=== PATIENT | male | born 1965 | race African-American/Black ===

== ENCOUNTER 2016-08-10 11:33 | Inpatient (IN) | payer OTHER ==
[2016-08-10 12:28] VITALS: BMI 25.2
[2016-08-10] MEDS ORDERED: P-EPHED 60MG/TRIPROLIDI 2.5MG TABLET PO PRN (14:37)
[2016-08-10] MEDS ORDERED: IBUPROFEN 400 MG TABLET (FP) PO PRN (14:37)
[2016-08-10] MEDS ORDERED: MAGNESIUM CITRATE 300 ML BOTTLE PO PRN (14:37)
[2016-08-10] MEDS ORDERED: LOPERAMIDE HCL 2 MG CAPSULE PO PRN (14:37)
[2016-08-10] MEDS ORDERED: ACETAMINOPHEN 325 MG TABLET (FP) PO PRN (14:37)
[2016-08-10] MEDS ORDERED: MENTHOL/PHENOL 1 EACH UD MM PRN (14:37)
[2016-08-10] MEDS ORDERED: hydrOXYzine PAMOATE 50 MG CAPSULE (FP) PO PRN (14:37)
[2016-08-10] MEDS ORDERED: MAG HYDROX/AL HYDROX/SIMETH 30 ML UNIT-DOSE CUP PO PRN (14:37)
[2016-08-10] MEDS ORDERED: MAGNESIUM HYDROX 2400MG/30ML ORAL SUSPENSION 30 ML CUP PO PRN (14:37)
[2016-08-10] MEDS ORDERED: NICOTINE POLACRILEX 4 MG GUM BUC PRN (14:37)
[2016-08-10] MEDS ORDERED: diphenhydrAMINE HCL 50 MG CAPSULE PO PRN (14:37)
[2016-08-10] MEDS ORDERED: guaiFENesin/D-METHORPHAN HB 10 ML UNIT-DOSE CUPS PO PRN (14:37)
[2016-08-10] MEDS ORDERED: NICOTINE 21 MG/24 HOURS TOPICAL PATCH TD SCH (14:45)
--- NOTE | 2016-08-10 14:45 | HP ---
Admission ROS [facility] Chief Complaint: requesting [facility] Allergies/Adverse Reactions: Allergies Allergy/AdvReac Type Severity Reaction Status Date / Time No Known Allergies Allergy Verified 08/10/16 13:32 History of Present Illness: 51 yo m w h/o alcohol and opioid use disorder on MMTP 60mg completed inpatient detox at [facility] now requesting admission for 28 day rehab. PMHX epilepsy on dilantin 100mg tid, last seizures 7 months ago, takes his medications as prescribed, last dose of dilantin 2PM today. Has not had methadone. no h/o psychiatric illness, no suicidal ideation at present or suicide attempts in past. Last drink tuesday 5 days ago with heroin. Patient says he has not been medicated with methadone 60mg this AM, now w opioid withdrawal sx, nausea, diarrhea, baody aches, low back pain and anasal congestion, nurse at [facility] said patient left before he was medicated today LDM yesterday. Exam Limitations: No Limitations - Ebola screening Have you traveled outside of the country in the last 21 days: No Have you had contact with anyone from an Ebola affected area: No Have you been sick,other than usual withdrawal symptoms: No Do you have a fever: No - Review of Systems Constitutional: Diaphoresis, Loss of Appetite, Malaise EENT: reports: Nose Congestion Respiratory: reports: No Symptoms reported Cardiac: reports: No Symptoms Reported GI: reports: Diarrhea, Nausea : reports: No Symptoms Reported Musculoskeletal: reports: Back Pain, Muscle Pain Integumentary: reports: No Symptoms Reported Neuro: reports: Seizure (last seizure 7 months ago on dilantin taking as prescribed) Endocrine: reports: No Symptoms Reported Hematology: reports: No Symptoms Reported Psychiatric: reports: Judgement Intact, Mood/Affect Appropiate, Orientated x3, Anxious, Depressed Other Systems: Reviewed and Negative Patient History - Patient Medical History Hx Anemia: No Hx Asthma: No Hx Chronic Obstructive Pulmonary Disease (COPD): No Hx Cancer: No Hx Cardiac Disorders: No Hx Congestive Heart Failure: No Hx Hypertension: Yes (NO MED) Hx Hypercholesterolemia: No Hx Pacemaker: No HX Cerebrovascular Accident: No Hx Seizures: Yes (H/O Epilepsy LAST IN 03/26) Hx Dementia: No Hx Diabetes: No Hx Gastrointestinal Disorders: No Hx Liver Disease: No Hx Genitourinary Disorders: No Hx Sexually Transmitted Disorders: No Hx Renal Disease (ESRD): No Hx Thyroid Disease: No Hx Human Immunodeficiency Virus (HIV): No (neg LAST 2015) Hx Hepatitis C: No Hx Depression: Yes Hx Suicide Attempt: No Hx Bipolar Disorder: No Hx Schizophrenia: No Other Medical History: r hinguinal hernia, non tender, no surgical repiar - Patient Surgical History Past Surgical History: Yes Hx Neurologic Surgery: No Hx Cataract Extraction: No Hx Cardiac Surgery: No Hx Lung Surgery: No Hx Breast Surgery: No Hx Breast Biopsy: No Hx Abdominal Surgery: No Hx Appendectomy: No Hx Cholecystectomy: No Hx Genitourinary Surgery: No Hx Section: No Hx Orthopedic Surgery: Yes (fx left wrist 1998 ORIF) Anesthesia Reaction: No - PPD History Previous Implant?: Yes Documented Results: Negative w/proof Implanted On Prior [facility] Admission?: No Date: 05/09/16 PPD to be Administered?: No - Reproductive History Patient is a Female of Child Bearing Age (11 -55 yrs old): No Patient : No - Smoking Cessation Smoking history: Current every day smoker Have you smoked in the past 12 months: Yes Aproximately how many cigarettes per day: 6 Cigars Per Day: 0 Hx Chewing Tobacco Use: No Initiated information on smoking cessation: Yes 'Breaking Loose' booklet given: 08/10/16 - Substance & Tx. History Hx Alcohol Use: Yes Hx Substance Use: Yes Substance Use Type: Alcohol, Heroin, Opiates Hx Substance Use Treatment: Yes (MMTP, s/p inpatient detox at [facility]) - Substances Abused Alcohol Route: Oral Frequency: Daily Amount used: 2 6 opacks and a pint of vodka daily Age of first use: 12 Date of Last Use: 08/06/16 Heroin Route: Inhalation Frequency: Daily Amount used: 5-10 bags daily Age of first use: 13 Date of Last Use: 08/06/16 Admission Physical Exam [facility] - Vital Signs Vital Signs: Vital Signs - 24 hr 08/10/16 12:27 Temperature 97.8 F Pulse Rate 73 Respiratory 20 Rate Blood Pressure 133/89 - Physical General Appearance: Yes: Nourished, Appropriately Dressed, Disheveled, Mild Distress, Irritable, Anxious HEENTM: Yes: EOMI, Hearing grossly Normal, Normal ENT Inspection, Normocephalic , Normal Voice, MARIE, Nasal Congestion Respiratory: Yes: Within Normal Limits, Chest Non-Tender, Lungs Clear, Normal Breath Sounds, No Respiratory Distress, No Accessory Muscle Use Neck: Yes: Within Normal Limits, No masses,lesions,Nodules, Supple, Trachea in good position Breast: Yes: Breast Exam Deferred Cardiology: Yes: Within Normal Limits, Regular Rhythm, Regular Rate, S1, S2 Abdominal: Yes: Normal Bowel Sounds, Non Tender, Flat, Soft, Protuberent, Distended Genitourinary: Yes: Within Normal Limits Back: Yes: Normal Inspection, Decreased Range of Motion, Muscle Spasm, Vertebral Tenderness Musculoskeletal: Yes: full range of Motion, Gait Steady, Back pain, Joint Stiffness Extremities: Yes: Normal Capillary Refill, Normal Inspection, Normal Range of Motion, Non-Tender 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, Fully Oriented, Alert, Motor Strength 5/5, Normal Response, Depressed Affect Integumentary: Yes: Within Normal Limits, Normal Color, Dry, Warm Lymphatic: Yes: Within Normal Limits - Addiitonal Findings: symptoms of opioid withdrawal present as patient did not recieve methadone this am prior to leaving detox - Diagnostic (1) Cocaine dependence Current Visit: Yes Status: Chronic Qualifiers: Substance use status: uncomplicated Qualified Code(s): F14.20 - Cocaine dependence, uncomplicated (2) Opioid dependence Current Visit: Yes Status: Chronic Qualifiers: Substance use status: uncomplicated Qualified Code(s): F11.20 - Opioid dependence, uncomplicated (3) Substance induced mood disorder Current Visit: Yes Status: Acute (4) Substance-induced sleep disorder Current Visit: Yes Status: Acute (5) Blurred vision, bilateral Current Visit: No Status: Chronic (6) Direct inguinal hernia Current Visit: No Status: Chronic (7) Epilepsy Current Visit: No Status: Chronic (8) Marijuana dependence Current Visit: Yes Status: Chronic (9) Methadone maintenance therapy patient Current Visit: Yes Status: Chronic (10) Nicotine dependence Current Visit: Yes Status: Chronic Qualifiers: Nicotine product type: cigarettes Substance use status: uncomplicated Qualified Code(s): F17.210 - Nicotine dependence, cigarettes, uncomplicated (11) Osteoarthritis Current Visit: Yes Status: Chronic Qualifiers: Spinal region: lumbar Cleared for Admission [facility] - Detox or Rehab Claeared for Rehab Admission: Yes [facility] Breath Alcohol Content Breath Alcohol Content: 0 Urine Drug Screen - Control Is Test Valid: Yes - Results Drug Screen Negative: No Urine Drug Screen Results: BAR-Barbiturates, BZO-Benzodiazepines, MTD-Methadone , TCA-Tricyclic Antidepress
[2016-08-10] MEDS ORDERED: METHADONE HCL 10 MG TABLET PO ONE ×2 (14:51)
[2016-08-10] MEDS ORDERED: METHADONE HCL 10 MG TABLET PO SCH (15:15)
[2016-08-10 16:03] LABS: MCH 31.9 pg (25.7-33.7); MEAN CELL VOLUME 96.8 fl (80-96); MEAN PLT VOLUME 8.9 fl (7.5-11.1); PLATELET COUNT 196 K/MM3 (134-434); WHITE BLOOD COUNT 3.8 K/mm3 (4.0-10.0)
[2016-08-10 16:06] LABS: ALBUMIN 3.2 g/dl (3.4-5.0); ANION GAP 7 (8-16); BILIRUBIN,TOTAL 0.3 mg/dL (0.2-1.0); CALCIUM 8.7 mg/dL (8.5-10.1); CO2 30 mmol/L (21-32); CREATININE 0.9 mg/dL (0.7-1.3); GLUCOSE,RANDOM 80 mg/dL (74-106); SGOT/AST 19 U/L (15-37); SGPT/ALT 25 U/L (12-78)
[2016-08-10 16:07] LABS: ALK PHOS 89 U/L (45-117)
[2016-08-10] MEDS ORDERED: METHADONE HCL 10 MG TABLET ONE (16:29)
[2016-08-10] MEDS ORDERED: METHADONE HCL 40 MG DISPERSABLE TABLET ONE (16:29)
[2016-08-10] MEDS ORDERED: TUBERCULIN PPD 5 TU/0.1ML VIAL ID ONE (16:31)
[2016-08-10] MEDS: CYCLOBENZAPRINE HCL 10 MG TABLET (FP) PO SCH ×2 (16:32→21:33)
[2016-08-10] MEDS: LIDOCAINE 5% TOPICAL PATCH TP SCH (16:32)
[2016-08-10] MEDS: METHADONE 40 MG, METHADONE 20 MG PO SCH (16:32)
[2016-08-10 20:11] LABS: URINE APPEARANCE CLEAR; URINE BILIRUBIN NEGATIVE (NEGATIVE); URINE BLOOD NEGATIVE (NEGATIVE); URINE COLOR YELLOW; URINE GLUCOSE (UA) NEGATIVE (NEGATIVE); URINE KETONE NEGATIVE (NEGATIVE); URINE LEUK ESTERASE NEGATIVE (NEGATIVE); URINE NITRITE NEGATIVE (NEGATIVE); URINE PROTEIN NEGATIVE (NEGATIVE); URINE UROBILINOGEN NEGATIVE E.U./dl (0.2-1.0)
[2016-08-10] MEDS: PHENYTOIN NA EXTENDED 100 MG CAPSULE (FP) PO SCH (21:33)
[2016-08-10] MEDS: THIAMINE HCL 100 MG TABLET (FP) PO SCH (21:33)
[2016-08-10] MEDS: NAPROXEN 500 MG TABLET (FP) PO SCH (21:33)
[2016-08-11] MEDS ORDERED: METHADONE HCL 10 MG TABLET ONE (03:10)
[2016-08-11] MEDS ORDERED: METHADONE HCL 40 MG DISPERSABLE TABLET ONE (03:10)
[2016-08-11] MEDS: PHENYTOIN NA EXTENDED 100 MG CAPSULE (FP) PO SCH ×3 (06:17→21:31)
[2016-08-11] MEDS: CYCLOBENZAPRINE HCL 10 MG TABLET (FP) PO SCH ×3 (06:17→21:31)
[2016-08-11] MEDS: METHADONE 40 MG, METHADONE 20 MG PO SCH (06:18)
--- NOTE | 2016-08-11 09:43 | HP ---
Psychiatrist Admission - Data Date of interview: 08/11/16 Admission source: [facility] Identifying data: This is the second inpatient rehabilitation admission, first to for this 51 year old single black male, father of 27 year old, currenty homeles and on PA Medical History: Seizure Disorder and Osteoarthritis, smokes 6 cigaretts a day. On MMTP 60 mg daily. 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 Vital Signs: Vital Signs - 24 hr 08/10/16 08/11/16 08/11/16 12:27 00:40 03:30 Temperature 97.8 F Pulse Rate 73 Respiratory 20 18 18 Rate Blood Pressure 133/89 08/11/16 06:45 Temperature 97.5 F L Pulse Rate 59 L Respiratory 18 Rate Blood Pressure 133/90 Allergies/Adverse Reactions: Allergies Allergy/AdvReac Type Severity Reaction Status Date / Time No Known Allergies Allergy Verified 08/10/16 13:32 Date of last physical exam: 08/10/16 Concur with the findings of this exam: Yes - Substance Abuse/Tx History Hx Alcohol Use: Yes Hx Substance Use: Yes Substance Use Type: Alcohol (1 pint of vodka and 2-6 pks of beer daily), Heroin (5-10 a day), Marijuana (daily use) Hx Substance Use Treatment: Yes (detox. [facility] - Admission Criteria Previous failed treatment: Yes Poor recovery environment: Yes Comorbidities: No Lacks judgement: Yes Mental Status Exam - Mental Status Exam Alert and Oriented to: Time, Place, Person Cognitive Function: Good Patient Appearance: Well Groomed Mood: Sad Affect: Appropriate, Mood Congruent Patient Behavior: Appropriate, Cooperative Speech Pattern: Clear, Appropriate Voice Loudness: Normal Thought Process: Intact, Goal Oriented Thought Disorder: Not Present Hallucinations: Denies Suicidal Ideation: Denies Homicidal Ideation: Denies Insight/Judgement: Fair Sleep: Fair Appetite: Fair Muscle strength/Tone: Normal Gait/Station: Normal Psychiatric Findings - Problem List ([place] 1, 2,3) (1) Cocaine dependence Current Visit: Yes Status: Chronic Qualifiers: Substance use status: uncomplicated Qualified Code(s): F14.20 - Cocaine dependence, uncomplicated (2) Marijuana dependence Current Visit: Yes Status: Chronic (3) Methadone maintenance therapy patient Current Visit: Yes Status: Chronic (4) Nicotine dependence Current Visit: Yes Status: Chronic Qualifiers: Nicotine product type: cigarettes Substance use status: uncomplicated Qualified Code(s): F17.210 - Nicotine dependence, cigarettes, uncomplicated (5) Opioid dependence Current Visit: Yes Status: Chronic Qualifiers: Substance use status: uncomplicated Qualified Code(s): F11.20 - Opioid dependence, uncomplicated - Initial Treatment Plan Initial Treatment Plan: will monitor progress as needed.
[2016-08-11] MEDS: LIDOCAINE 5% TOPICAL PATCH TP SCH (10:10)
[2016-08-11] MEDS: PRENATAL VITAMINS W/ FOLIC ACID TABLET (FP) PO SCH (10:10)
[2016-08-11] MEDS: NAPROXEN 500 MG TABLET (FP) PO SCH ×2 (10:10→21:31)
[2016-08-11] MEDS ORDERED: PNEUMOC 13-VAL CONJ-DIP CRM/PF 0.5 ML DISP.SYRIN IM ONE (12:00)
[2016-08-11] MEDS ORDERED: PNEUMOCOCCAL 23 VACCINE 0.5 ML VIAL IM ONE (12:00)
--- NOTE | 2016-08-11 13:19 | EKG ---
Test Reason : Blood Pressure : / mmHG Vent. Rate : 080 BPM Atrial Rate : 080 BPM P-R Int : 162 ms QRS Dur : 100 ms QT Int : 394 ms P-R-T Axes : 060 048 058 degrees QTc Int : 454 ms NORMAL SINUS RHYTHM NORMAL ECG NO PREVIOUS ECGS AVAILABLE Confirmed by KALIA RIVERS, VINCE ([id number]) on 08/11/2016 1:19:22 PM Referred By: Confirmed By:VINCE MOTTA MD
[2016-08-11] MEDS ORDERED: PHENYTOIN NA EXTENDED 100 MG CAPSULE (FP) PO ONE (15:45)
[2016-08-11] MEDS ORDERED: PHENYTOIN NA EXTENDED 100 MG CAPSULE (FP) PO SCH (15:45)
[2016-08-11] MEDS: THIAMINE HCL 100 MG TABLET (FP) PO SCH (21:31)
[2016-08-12] MEDS ORDERED: METHADONE HCL 40 MG DISPERSABLE TABLET ONE (04:56)
[2016-08-12] MEDS ORDERED: METHADONE HCL 10 MG TABLET ONE (04:56)
[2016-08-12] MEDS: PHENYTOIN NA EXTENDED 100 MG CAPSULE (FP) PO SCH ×3 (06:20→21:47)
[2016-08-12] MEDS: METHADONE 40 MG, METHADONE 20 MG PO SCH (06:20)
[2016-08-12] MEDS: CYCLOBENZAPRINE HCL 10 MG TABLET (FP) PO SCH ×3 (06:20→21:47)
[2016-08-12] MEDS: LIDOCAINE 5% TOPICAL PATCH TP SCH (10:01)
[2016-08-12] MEDS: NAPROXEN 500 MG TABLET (FP) PO SCH ×2 (10:01→21:47)
[2016-08-12] MEDS: PRENATAL VITAMINS W/ FOLIC ACID TABLET (FP) PO SCH (10:01)
[2016-08-12] MEDS: THIAMINE HCL 100 MG TABLET (FP) PO SCH (21:47)
[2016-08-13] MEDS ORDERED: METHADONE HCL 40 MG DISPERSABLE TABLET ONE (03:08)
[2016-08-13] MEDS ORDERED: METHADONE HCL 10 MG TABLET ONE (03:09)
[2016-08-13] MEDS: METHADONE 40 MG, METHADONE 20 MG PO SCH (06:13)
[2016-08-13] MEDS: PHENYTOIN NA EXTENDED 100 MG CAPSULE (FP) PO SCH ×3 (06:13→21:36)
[2016-08-13] MEDS: CYCLOBENZAPRINE HCL 10 MG TABLET (FP) PO SCH ×3 (06:13→21:37)
[2016-08-13] MEDS: PRENATAL VITAMINS W/ FOLIC ACID TABLET (FP) PO SCH (09:59)
[2016-08-13] MEDS: NAPROXEN 500 MG TABLET (FP) PO SCH ×2 (09:59→21:36)
[2016-08-13] MEDS: LIDOCAINE 5% TOPICAL PATCH TP SCH (09:59)
[2016-08-13] MEDS: THIAMINE HCL 100 MG TABLET (FP) PO SCH (21:36)
[2016-08-14] MEDS ORDERED: METHADONE HCL 40 MG DISPERSABLE TABLET ONE (03:12)
[2016-08-14] MEDS ORDERED: METHADONE HCL 10 MG TABLET ONE (03:12)
[2016-08-14] MEDS: METHADONE 40 MG, METHADONE 20 MG PO SCH (06:49)
[2016-08-14] MEDS: CYCLOBENZAPRINE HCL 10 MG TABLET (FP) PO SCH ×3 (06:49→21:46)
[2016-08-14] MEDS: PHENYTOIN NA EXTENDED 100 MG CAPSULE (FP) PO SCH ×3 (06:49→21:46)
[2016-08-14] MEDS: NAPROXEN 500 MG TABLET (FP) PO SCH ×2 (09:46→21:46)
[2016-08-14] MEDS: PRENATAL VITAMINS W/ FOLIC ACID TABLET (FP) PO SCH (09:46)
[2016-08-14] MEDS: LIDOCAINE 5% TOPICAL PATCH TP SCH (09:47)
[2016-08-14] MEDS: THIAMINE HCL 100 MG TABLET (FP) PO SCH (21:46)
[2016-08-15] MEDS ORDERED: METHADONE HCL 40 MG DISPERSABLE TABLET ONE (03:13)
[2016-08-15] MEDS ORDERED: METHADONE HCL 10 MG TABLET ONE (03:13)
[2016-08-15] MEDS: METHADONE 40 MG, METHADONE 20 MG PO SCH (06:33)
[2016-08-15] MEDS: PHENYTOIN NA EXTENDED 100 MG CAPSULE (FP) PO SCH ×3 (06:33→21:46)
[2016-08-15] MEDS: CYCLOBENZAPRINE HCL 10 MG TABLET (FP) PO SCH ×3 (06:33→21:46)
[2016-08-15] MEDS: NAPROXEN 500 MG TABLET (FP) PO SCH ×2 (10:07→21:46)
[2016-08-15] MEDS: PRENATAL VITAMINS W/ FOLIC ACID TABLET (FP) PO SCH (10:07)
[2016-08-15] MEDS: LIDOCAINE 5% TOPICAL PATCH TP SCH (10:07)
[2016-08-15] MEDS: THIAMINE HCL 100 MG TABLET (FP) PO SCH (21:46)
[2016-08-16] MEDS ORDERED: METHADONE HCL 40 MG DISPERSABLE TABLET ONE (05:43)
[2016-08-16] MEDS ORDERED: METHADONE HCL 10 MG TABLET ONE (05:44)
[2016-08-16] MEDS: METHADONE 40 MG, METHADONE 20 MG PO SCH (06:35)
[2016-08-16] MEDS: CYCLOBENZAPRINE HCL 10 MG TABLET (FP) PO SCH ×3 (06:35→22:31)
[2016-08-16] MEDS: PHENYTOIN NA EXTENDED 100 MG CAPSULE (FP) PO SCH ×3 (06:35→22:32)
[2016-08-16] MEDS: NAPROXEN 500 MG TABLET (FP) PO SCH ×2 (10:05→22:31)
[2016-08-16] MEDS: PRENATAL VITAMINS W/ FOLIC ACID TABLET (FP) PO SCH (10:05)
[2016-08-16] MEDS: LIDOCAINE 5% TOPICAL PATCH TP SCH (10:05)
[2016-08-16] MEDS ORDERED: PHENYTOIN NA EXTENDED 100 MG CAPSULE (FP) PO ONE (12:19)
--- NOTE | 2016-08-16 12:22 | PN ---
[facility] Progress Note Note: Laboratory 08/10/16 08/10/16 08/10/16 14:00 14:00 14:00 WBC 3.8 K/mm3 L K/mm3 (4.0-10.0) RBC 3.85 M/mm3 L M/mm3 (4.00-5.60) Hgb 12.3 GM/dL GM/dL (11.7-16.9) Hct 37.3 % % (35.4-49) MCV 96.8 fl H fl (80-96) MCHC 33.0 g/dl g/dl (32.0-35.9) RDW 14.0 % % (11.9-15.9) Plt Count 196 K/MM3 K/MM3 (134-434) MPV 8.9 fl fl (7.5-11.1) Sodium 142 mmol/L mmol/L (136-145) Potassium 4.6 mmol/L mmol/L (3.5-5.1) Chloride 105 mmol/L mmol/L (98-107) Carbon Dioxide 30 mmol/L mmol/L (21-32) Anion Gap 7 L (8-16) BUN 15 mg/dL mg/dL (7-18) Creatinine 0.9 mg/dL mg/dL (0.7-1.3) Creat Clearance w eGFR > 60 (>60) Random Glucose 80 mg/dL mg/dL (74-106) Calcium 8.7 mg/dL mg/dL (8.5-10.1) Total Bilirubin 0.3 mg/dL D mg/dL (0.2-1.0) AST 19 U/L D U/L (15-37) ALT 25 U/L D U/L (12-78) Alkaline Phosphatase 89 U/L U/L (45-117) Total Protein 6.0 g/dl L g/dl (6.4-8.2) Albumin 3.2 g/dl L g/dl (3.4-5.0) Urine Color Urine Appearance Urine pH Ur Specific [place] Urine Protein Urine Glucose (UA) Urine Ketones Urine Blood Urine Nitrite Urine Bilirubin Urine Urobilinogen Ur Leukocyte Esterase Phenytoin RPR Titer Nonreactive (NONREACTIVE) 08/10/16 08/11/16 08/12/16 15:00 06:00 09:20 WBC RBC Hgb Hct MCV MCHC RDW Plt Count MPV Sodium Potassium Chloride Carbon Dioxide Anion Gap BUN Creatinine Creat Clearance w eGFR Random Glucose Calcium Total Bilirubin AST ALT Alkaline Phosphatase Total Protein Albumin Urine Color Yellow Urine Appearance Clear Urine pH 7.0 (5.0-8.0) Ur Specific [place] 1.018 (1.001-1.035) Urine Protein Negative (NEGATIVE) Urine Glucose (UA) Negative (NEGATIVE) Urine Ketones Negative (NEGATIVE) Urine Blood Negative (NEGATIVE) Urine Nitrite Negative (NEGATIVE) Urine Bilirubin Negative (NEGATIVE) Urine Urobilinogen Negative E.U./dl E.U./dl (0.2-1.0) Ur Leukocyte Esterase Negative (NEGATIVE) Phenytoin < 2.5 ug/ml L ug/ml 8.1 ug/ml L D ug/ml (10.0-20.0) (10.0-20.0) RPR Titer WILL GIVE DILANTIN 300 MGS PO NOW THEN TID REPEAT DILANTIN ON 08/18/16
[2016-08-16] MEDS: THIAMINE HCL 100 MG TABLET (FP) PO SCH (22:31)
[2016-08-17] MEDS ORDERED: METHADONE HCL 40 MG DISPERSABLE TABLET ONE (03:10)
[2016-08-17] MEDS ORDERED: METHADONE HCL 10 MG TABLET ONE (03:11)
[2016-08-17] MEDS: CYCLOBENZAPRINE HCL 10 MG TABLET (FP) PO SCH ×3 (06:24→21:44)
[2016-08-17] MEDS: METHADONE 40 MG, METHADONE 20 MG PO SCH (06:24)
[2016-08-17] MEDS: PHENYTOIN NA EXTENDED 100 MG CAPSULE (FP) PO SCH ×3 (06:24→21:44)
[2016-08-17] MEDS: LIDOCAINE 5% TOPICAL PATCH TP SCH (10:00)
[2016-08-17] MEDS: NAPROXEN 500 MG TABLET (FP) PO SCH ×2 (10:00→21:44)
[2016-08-17] MEDS: PRENATAL VITAMINS W/ FOLIC ACID TABLET (FP) PO SCH (10:00)
[2016-08-17] MEDS: THIAMINE HCL 100 MG TABLET (FP) PO SCH (21:44)
[2016-08-18] MEDS ORDERED: METHADONE HCL 40 MG DISPERSABLE TABLET ONE (05:47)
[2016-08-18] MEDS ORDERED: METHADONE HCL 10 MG TABLET ONE (05:48)
[2016-08-18] MEDS ORDERED: METHADONE HCL 10 MG TABLET PO SCH (06:00)
[2016-08-18] MEDS: CYCLOBENZAPRINE HCL 10 MG TABLET (FP) PO SCH ×3 (06:31→21:35)
[2016-08-18] MEDS: METHADONE 40 MG, METHADONE 20 MG PO SCH (06:31)
[2016-08-18] MEDS: PHENYTOIN NA EXTENDED 100 MG CAPSULE (FP) PO SCH ×3 (06:31→21:35)
[2016-08-18] MEDS: NAPROXEN 500 MG TABLET (FP) PO SCH ×2 (09:59→21:35)
[2016-08-18] MEDS: PRENATAL VITAMINS W/ FOLIC ACID TABLET (FP) PO SCH (09:59)
[2016-08-18] MEDS: LIDOCAINE 5% TOPICAL PATCH TP SCH (09:59)
[2016-08-18] MEDS ORDERED: PHENYTOIN NA EXTENDED 100 MG CAPSULE (FP) PO ONE (15:40)
[2016-08-18] MEDS: THIAMINE HCL 100 MG TABLET (FP) PO SCH (21:35)
[2016-08-19] MEDS ORDERED: METHADONE HCL 40 MG DISPERSABLE TABLET ONE (03:18)
[2016-08-19] MEDS ORDERED: METHADONE HCL 10 MG TABLET ONE (03:18)
[2016-08-19] MEDS: CYCLOBENZAPRINE HCL 10 MG TABLET (FP) PO SCH ×3 (06:20→21:44)
[2016-08-19] MEDS: METHADONE 40 MG, METHADONE 20 MG PO SCH (06:20)
[2016-08-19] MEDS: PHENYTOIN NA EXTENDED 100 MG CAPSULE (FP) PO SCH ×3 (06:20→21:43)
[2016-08-19] MEDS: LIDOCAINE 5% TOPICAL PATCH TP SCH (09:30)
[2016-08-19] MEDS: NAPROXEN 500 MG TABLET (FP) PO SCH ×2 (09:30→21:43)
[2016-08-19] MEDS: PRENATAL VITAMINS W/ FOLIC ACID TABLET (FP) PO SCH (09:30)
[2016-08-19] MEDS: THIAMINE HCL 100 MG TABLET (FP) PO SCH (21:44)
[2016-08-20] MEDS ORDERED: METHADONE HCL 40 MG DISPERSABLE TABLET ONE (04:38)
[2016-08-20] MEDS ORDERED: METHADONE HCL 10 MG TABLET ONE (04:38)
[2016-08-20] MEDS: METHADONE 40 MG, METHADONE 20 MG PO SCH (06:05)
[2016-08-20] MEDS: PHENYTOIN NA EXTENDED 100 MG CAPSULE (FP) PO SCH ×3 (06:05→21:39)
[2016-08-20] MEDS: CYCLOBENZAPRINE HCL 10 MG TABLET (FP) PO SCH ×3 (06:05→21:39)
[2016-08-20] MEDS: NAPROXEN 500 MG TABLET (FP) PO SCH ×2 (09:41→21:39)
[2016-08-20] MEDS: LIDOCAINE 5% TOPICAL PATCH TP SCH (09:41)
[2016-08-20] MEDS: PRENATAL VITAMINS W/ FOLIC ACID TABLET (FP) PO SCH (09:41)
[2016-08-20] MEDS: THIAMINE HCL 100 MG TABLET (FP) PO SCH (21:39)
[2016-08-21] MEDS ORDERED: METHADONE HCL 10 MG TABLET ONE (03:22)
[2016-08-21] MEDS ORDERED: METHADONE HCL 40 MG DISPERSABLE TABLET ONE (03:22)
[2016-08-21] MEDS: PHENYTOIN NA EXTENDED 100 MG CAPSULE (FP) PO SCH ×3 (06:01→21:37)
[2016-08-21] MEDS: CYCLOBENZAPRINE HCL 10 MG TABLET (FP) PO SCH ×3 (06:01→21:37)
[2016-08-21] MEDS: METHADONE 40 MG, METHADONE 20 MG PO SCH (06:01)
[2016-08-21] MEDS: LIDOCAINE 5% TOPICAL PATCH TP SCH (09:46)
[2016-08-21] MEDS: PRENATAL VITAMINS W/ FOLIC ACID TABLET (FP) PO SCH (09:46)
[2016-08-21] MEDS: NAPROXEN 500 MG TABLET (FP) PO SCH ×2 (09:46→21:37)
[2016-08-21] MEDS: THIAMINE HCL 100 MG TABLET (FP) PO SCH (21:37)
[2016-08-22] MEDS ORDERED: METHADONE HCL 10 MG TABLET ONE (03:35)
[2016-08-22] MEDS ORDERED: METHADONE HCL 40 MG DISPERSABLE TABLET ONE (03:35)
[2016-08-22] MEDS: METHADONE 40 MG, METHADONE 20 MG PO SCH (06:07)
[2016-08-22] MEDS: CYCLOBENZAPRINE HCL 10 MG TABLET (FP) PO SCH ×3 (06:07→21:24)
[2016-08-22] MEDS: PHENYTOIN NA EXTENDED 100 MG CAPSULE (FP) PO SCH ×3 (06:07→21:24)
[2016-08-22] MEDS: NAPROXEN 500 MG TABLET (FP) PO SCH ×2 (09:45→21:24)
[2016-08-22] MEDS: LIDOCAINE 5% TOPICAL PATCH TP SCH (09:45)
[2016-08-22] MEDS: PRENATAL VITAMINS W/ FOLIC ACID TABLET (FP) PO SCH (09:45)
[2016-08-22] MEDS: THIAMINE HCL 100 MG TABLET (FP) PO SCH (21:25)
[2016-08-23] MEDS ORDERED: METHADONE HCL 40 MG DISPERSABLE TABLET ONE (03:17)
[2016-08-23] MEDS ORDERED: METHADONE HCL 10 MG TABLET ONE (03:18)
[2016-08-23] MEDS: PHENYTOIN NA EXTENDED 100 MG CAPSULE (FP) PO SCH (06:09)
[2016-08-23] MEDS: CYCLOBENZAPRINE HCL 10 MG TABLET (FP) PO SCH (06:09)
[2016-08-23] MEDS: METHADONE 40 MG, METHADONE 20 MG PO SCH (06:09)
[2016-08-23 06:44] VITALS: BP 145/78; PULSE 66; TEMP 98.2
--- NOTE | 2016-08-23 09:30 | PN ---
Psychiatric Progress Note Vital Signs: Vital Signs Period Temp Pulse Resp BP Sys/Mathis Pulse Ox Last 24 Hr 98.2 F 66 18-18 145/78 Date of Session: 08/23/16 Chief Complaint:: discharge visit HPI: Patient has addressed alcohol, nicotine, cocaine, cannabis dependence. ROS: Seizure Disorder and Osteoarthritis medically managed. Current Medications: Active Medications Generic Name Dose Route Start Last Admin Trade Name Freq PRN Reason Stop Dose Admin Acetaminophen 650 mg 08/10/16 14:37 Tylenol - PO Q4H PRN PAIN Al Hydroxide/Mg Hydroxide 30 ml 08/10/16 14:37 Mylanta Oral Suspension - PO Q6H PRN DYSPEPSIA Cyclobenzaprine HCl 10 mg 08/10/16 15:00 08/23/16 06:09 Flexeril - PO 10 mg TID DEVIN Administration Diphenhydramine HCl 50 mg 08/10/16 14:37 08/22/16 21:26 Benadryl - PO 50 mg HSMR1 PRN Administration INSOMNIA Eucalyptus/Menthol/Phenol/Sorbitol 1 each 08/10/16 14:37 Cepastat Lozenge - MM Q4H PRN SORE THROAT Guaifenesin 10 ml 08/10/16 14:37 Robitussin Dm - PO Q6H PRN COUGH Hydroxyzine Pamoate 50 mg 08/10/16 14:37 Vistaril - PO Q4H PRN AGITATION Lidocaine 1 patch 08/10/16 15:30 08/22/16 09:45 Lidoderm Patch - TP 1 patch DAILY DEVIN Administration Loperamide HCl 4 mg 08/10/16 14:37 Imodium - PO Q6H PRN DIARRHEA Magnesium Citrate 300 ml 08/10/16 14:37 Citroma - PO Q48H PRN CONSTIPATION Magnesium Hydroxide 30 ml 08/10/16 14:37 Milk Of Magnesia - PO DAILY PRN CONSTIPATION Methadone HCl 40 mg/ Methadone 60 mg 08/18/16 06:00 08/23/16 06:09 HCl 20 mg PO 08/24/16 05:59 60 mg DAILY@0600 DEVIN Administration Naproxen 500 mg 08/10/16 22:00 08/22/16 21:24 Naprosyn - PO 500 mg BID DEVIN Administration Nicotine Polacrilex 4 mg 08/10/16 14:37 Nicorette Gum - BUC Q2H PRN NICOTINE REPLACEMENT RX Phenytoin Sodium 100 mg 08/10/16 22:00 08/23/16 06:09 Dilantin - PO 100 mg TID DEVIN Administration Multivit/Folic Acid/Iron 1 tab 08/11/16 10:00 08/22/16 09:45 Vitamins (Sjr) - PO 1 tab DAILY DEVIN Administration Pseudoephedrine/Triprolidine 1 combo 08/10/16 14:37 Actifed - PO TID PRN NASAL CONGESTION Thiamine HCl 100 mg 08/10/16 22:00 08/22/16 21:25 Vitamin B1 - PO 100 mg HS DEVIN Administration Current Side Effect: No Lab tests ordered: No Lab tests reviewed: Yes Provider note:: Patient has completed today his treatment and met his goals, will continue to address his issues at [facility] long-term house. Patient gained inisghts into his problems and motivated to continue maintain abstinence. Patient verbalized his resolution to stay sober and adherent to his aftercare plans, patient was encouraged to utilize all supports available to prevent relapse. Patient is stable for discharge today. Total face to face time:: 35 Mental Status Exam - Mental Status Exam Alert and Oriented to: Time, Place, Person Cognitive Function: Good Patient Appearance: Well Groomed Mood: Hopeful Affect: Mood Congruent Patient Behavior: Cooperative Speech Pattern: Clear, Appropriate Voice Loudness: Normal Thought Process: Intact, Goal Oriented Thought Disorder: Not Present Hallucinations: Denies Suicidal Ideation: Denies Homicidal Ideation: Denies Insight/Judgement: Fair Sleep: Well Appetite: Good Muscle strength/Tone: Normal Gait/Station: Normal Psychiatric Treatment Plan - Problem List (1) Cocaine dependence Current Visit: Yes Qualifiers: Substance use status: uncomplicated Qualified Code(s): F14.20 - Cocaine dependence, uncomplicated (2) Marijuana dependence Current Visit: Yes (3) Methadone maintenance therapy patient Current Visit: Yes (4) Nicotine dependence Current Visit: Yes Qualifiers: Nicotine product type: cigarettes Substance use status: uncomplicated Qualified Code(s): F17.210 - Nicotine dependence, cigarettes, uncomplicated (5) Opioid dependence Current Visit: Yes Qualifiers: Substance use status: uncomplicated Qualified Code(s): F11.20 - Opioid dependence, uncomplicated
[2016-08-23] MEDS: PRENATAL VITAMINS W/ FOLIC ACID TABLET (FP) PO SCH (09:46)
[2016-08-23] MEDS: NAPROXEN 500 MG TABLET (FP) PO SCH (09:46)
[2016-08-23] MEDS: LIDOCAINE 5% TOPICAL PATCH TP SCH (09:47)
== END 2016-08-23 11:15 | disposition home or self-care (01) | DRG 772 ==
LOC: YASAS 11:33 → Y5N 14:43
PROVIDERS: ADMIT Psychiatry & Neurology Psychiatry; ATTEND Psychiatry & Neurology Psychiatry
PROC: HZ42ZZZ Group Counseling for Substance Abuse Treatment, Cognitive-Behavioral (ICD-10-PCS; principal; 2016-08-23)
DX: F11.20 Opioid dependence, uncomplicated (principal); F14.20 Cocaine dependence, uncomplicated; F12.20 Cannabis dependence, uncomplicated; F17.210 Nicotine dependence, cigarettes, uncomplicated; F19.24 Other psychoactive substance dependence with psychoactive substance-induced mood disorder; F19.282 Other psychoactive substance dependence with psychoactive substance-induced sleep disorder; M47.896 Other spondylosis, lumbar region
CPT/HCPCS: 36415; 80053; 80185; 81003; 85027; 86593; 90732; 93005; 93010; G0009

== ENCOUNTER 2017-06-18 12:33 | Inpatient (IN) | payer OTHER ==
[2017-06-18 12:44] VITALS: BMI 26.1
--- NOTE | 2017-06-18 22:02 | HP ---
COWS - Scale Resting Pulse: 1= IN 81-100 Sweatin=Flushed/Facial Moisture Restless Observation: 1= Difficult to Sit Still Pupil Size: 1= Pupils >than Normal Bone or Joint Aches: 4=Acute Joint/Muscle Pain Runny Nose/ Eye Tearin= Runny Nose/Eyes GI Upset > 30mins: 1= Stomach Cramp Tremor Observation: 2= Slight Tremor Visible Yawning Observation: 0= None Anxiety or Irritability: 4=Extreme Anxiety Goose Flesh Skin: 0=Smooth Skin COWS Score: 18 CIWA Score - CIWA Score Nausea/Vomitin-No Nausea/No Vomiting Muscle Tremors: 4-Moderate,w/Arms Extend Anxiety: 4-Mod. Anxious/Guarded Agitation: 4-Moderately Restless Paroxysmal Sweats: 1-Minimal Palms Moist Orientation: 0-Oriented Tacttile Disturbances: 0-None Auditory Disturbances: 0-None Visual Disturbances: 0-None Headache: 4-Moderately Severe CIWA-Ar Total Score: 17 Admission ROS [facility] - HPI Chief Complaint: Alcohol and heroin withdrawal symptoms Allergies/Adverse Reactions: Allergies Allergy/AdvReac Type Severity Reaction Status Date / Time No Known Allergies Allergy Verified 08/10/16 13:32 History of Present Illness: 52 years old male with complaint of alcohol, marijuana and heroin dependence is admitted to detox. Patient has been in previous detox and reports 18 years of sobriety. Patient has medical history of epilepsy, HTN and depression. He is on Start MMTP, methadone dosage 60mg and was medicated last today, 06/18/2017. Dose is yet to be verified by the nurse. Patient is on antihypertensive medication but does not remember name and dosage of medication. He states, "my goal is to become sober again." - Ebola screening Have you traveled outside of the country in the last 21 days: No Have you had contact with anyone from an Ebola affected area: No Have you been sick,other than usual withdrawal symptoms: No Do you have a fever: No - Review of Systems Constitutional: Chills, Loss of Appetite, Malaise, Night Sweats, Changes in sleep, Weakness EENT: reports: No Symptoms Reported, Nose Congestion, Sinus Pressure Respiratory: reports: No Symptoms reported Cardiac: reports: No Symptoms Reported GI: reports: Other Musculoskeletal: reports: Back Pain, Muscle Pain, Muscle Weakness Integumentary: reports: Dryness, Flushing, Other Neuro: reports: Tingling, Tremors, Weakness Endocrine: reports: No Symptoms Reported Hematology: reports: No Symptoms Reported Psychiatric: reports: Mood/Affect Appropiate, Orientated x3, Anxious, Depressed Other Systems: Reviewed and Negative Patient History - Patient Medical History Hx Anemia: No Hx Asthma: No Hx Chronic Obstructive Pulmonary Disease (COPD): No Hx Cancer: No Hx Cardiac Disorders: No Hx Congestive Heart Failure: No Hx Hypertension: Yes Hx Hypercholesterolemia: No Hx Pacemaker: No HX Cerebrovascular Accident: No Hx Seizures: Yes (last seizure activity was 06/16/2017) Hx Dementia: No Hx Diabetes: No Hx Gastrointestinal Disorders: No Hx Liver Disease: No Hx Genitourinary Disorders: No Hx Sexually Transmitted Disorders: No Hx Renal Disease (ESRD): No Hx Thyroid Disease: No Hx Human Immunodeficiency Virus (HIV): No (Negative 2016) Hx Hepatitis C: No (Negative 2017) Hx Depression: No Hx Suicide Attempt: No Hx Bipolar Disorder: No Hx Schizophrenia: No - Patient Surgical History Past Surgical History: Yes Hx Neurologic Surgery: No Hx Cataract Extraction: No Hx Cardiac Surgery: No Hx Lung Surgery: No Hx Abdominal Surgery: No Hx Appendectomy: No Hx Cholecystectomy: No Hx Genitourinary Surgery: No Hx Orthopedic Surgery: Yes (fx left wrist 1998 ORIF) Anesthesia Reaction: No - PPD History Date: 08/12/16 PPD to be Administered?: No - Reproductive History Patient is a Female of Child Bearing Age (11 -55 yrs old): No (male) - Smoking Cessation Smoking history: Current every day smoker Have you smoked in the past 12 months: Yes Aproximately how many cigarettes per day: 10 Hx Chewing Tobacco Use: Yes Initiated information on smoking cessation: Yes 'Breaking Loose' booklet given: 06/18/17 - Substance & Tx. History Hx Alcohol Use: Yes Hx Substance Use: Yes Substance Use Type: Alcohol, Heroin, Marijuana Hx Substance Use Treatment: Yes ([facility]) - Substances Abused Alcohol Route: Oral Frequency: Daily Amount used: BEER- 6 BOTTLES, Age of first use: 9 Date of Last Use: 06/18/17 Heroin Route: Inhalation Frequency: Daily Amount used: $30 Age of first use: 11 Date of Last Use: 06/17/17 Marijuana/Hashish Route: Inhalation Frequency: Daily Amount used: $30 Age of first use: 11 Date of Last Use: 06/17/17 Family Disease History - Family Disease History Family History: Denies Admission Physical Exam [facility] - Vital Signs Vital Signs: Vital Signs - 24 hr 06/18/17 12:39 Temperature 97.5 F L Pulse Rate 81 Respiratory 18 Rate Blood Pressure 143/98 - Physical General Appearance: Yes: Moderate Distress, Alcohol on Breath HEENTM: Yes: EOMI, Normal Voice, MARIE, Other (bruises, swelling and discolration to right eye from a fall secondary to seizures) Respiratory: Yes: Lungs Clear, Normal Breath Sounds, No Respiratory Distress Neck: Yes: Supple Breast: Yes: Breast Exam Deferred Cardiology: Yes: Regular Rhythm, Regular Rate, S1, S2 Abdominal: Yes: Normal Bowel Sounds, Soft Genitourinary: Yes: Within Normal Limits Musculoskeletal: Yes: Back pain, Muscle Pain, Muscle weakness Extremities: Yes: Tremors, Other (BOTH HANDS- [place]) Neurological: Yes: Alert, Normal Mood/Affect Integumentary: Yes: Dry Lymphatic: Yes: Within Normal Limits - Diagnostic (1) Alcohol dependence with uncomplicated withdrawal Current Visit: Yes Status: Chronic (2) Cocaine dependence Current Visit: No Status: Chronic Qualifiers: Substance use status: uncomplicated Qualified Code(s): F14.20 - Cocaine dependence, uncomplicated (3) Epilepsy Current Visit: Yes Status: Chronic (4) Marijuana dependence Current Visit: Yes Status: Chronic (5) Methadone maintenance therapy patient Current Visit: Yes Status: Chronic (6) Nicotine dependence Current Visit: Yes Status: Chronic Qualifiers: Nicotine product type: cigarettes Substance use status: uncomplicated Qualified Code(s): F17.210 - Nicotine dependence, cigarettes, uncomplicated (7) Osteoarthritis Current Visit: Yes Status: Chronic Qualifiers: Spinal region: lumbar Cleared for Admission [facility] - Detox or Rehab [facility] Level of Care: Medically Managed Detox Regimen/Protocol: Librium [facility] Breath Alcohol Content Breath Alcohol Content: 0.132 Urine Drug Screen - Results Urine Drug Screen Results: THC-Marijuana, MTD-Methadone
[2017-06-18] MEDS ORDERED: IBUPROFEN 400 MG TABLET (FP) PO PRN (22:42)
[2017-06-18] MEDS ORDERED: guaiFENesin/D-METHORPHAN HB 10 ML UNIT-DOSE CUPS PO PRN (22:42)
[2017-06-18] MEDS ORDERED: chlordiazePOXIDE HCL 25 MG CAPSULE PO PRN (22:42)
[2017-06-18] MEDS ORDERED: MAGNESIUM HYDROX 2400MG/30ML ORAL SUSPENSION 30 ML CUP PO PRN (22:42)
[2017-06-18] MEDS ORDERED: LOPERAMIDE HCL 2 MG CAPSULE PO PRN (22:42)
[2017-06-18] MEDS ORDERED: MENTHOL/PHENOL 1 EACH UD MM PRN (22:42)
[2017-06-18] MEDS ORDERED: MAGNESIUM CITRATE 300 ML BOTTLE PO PRN (22:42)
[2017-06-18] MEDS ORDERED: P-EPHED 60MG/TRIPROLIDI 2.5MG TABLET PO PRN (22:42)
[2017-06-18] MEDS ORDERED: ACETAMINOPHEN 325 MG TABLET (FP) PO PRN (22:42)
[2017-06-18] MEDS ORDERED: MAG HYDROX/AL HYDROX/SIMETH 30 ML UNIT-DOSE CUP PO PRN (22:42)
[2017-06-18] MEDS ORDERED: NICOTINE POLACRILEX 2 MG GUM BC PRN (22:42)
[2017-06-18] MEDS: chlordiazePOXIDE HCL 25 MG CAPSULE PO SCH (23:59)
[2017-06-18] MEDS: PHENYTOIN NA EXTENDED 100 MG CAPSULE (FP) PO SCH (23:59)
[2017-06-19] MEDS: chlordiazePOXIDE HCL 25 MG CAPSULE PO SCH ×4 (05:19→22:28)
[2017-06-19] MEDS: PHENYTOIN NA EXTENDED 100 MG CAPSULE (FP) PO SCH ×3 (05:20→22:28)
[2017-06-19 10:07] LABS: ALBUMIN 3.6 g/dl (3.4-5.0); ANION GAP 7 (8-16); CALCIUM 9.1 mg/dL (8.5-10.1); CO2 32 mmol/L (21-32); GLUCOSE,RANDOM 87 mg/dL (74-106)
[2017-06-19 10:13] LABS: ALK PHOS 108 U/L (45-117); BILIRUBIN,TOTAL 1.2 mg/dL (0.2-1.0); CREATININE 0.8 mg/dL (0.7-1.3); SGOT/AST 96 U/L (15-37); SGPT/ALT 61 U/L (12-78); TOT PROT 6.6 g/dl (6.4-8.2)
[2017-06-19 10:16] LABS: URINE APPEARANCE CLEAR; URINE BILIRUBIN NEGATIVE (NEGATIVE); URINE BLOOD NEGATIVE (NEGATIVE); URINE COLOR YELLOW; URINE GLUCOSE (UA) NEGATIVE (NEGATIVE); URINE KETONE NEGATIVE (NEGATIVE); URINE LEUK ESTERASE NEGATIVE (NEGATIVE); URINE NITRITE NEGATIVE (NEGATIVE); URINE PROTEIN NEGATIVE (NEGATIVE)
[2017-06-19 10:20] LABS: MCH 32.5 pg (25.7-33.7); MCHC 33.4 g/dl (32.0-35.9); MEAN CELL VOLUME 97.4 fl (80-96); MEAN PLT VOLUME 8.7 fl (7.5-11.1); PLATELET COUNT 196 K/MM3 (134-434); RDW 12.8 % (11.9-15.9); WHITE BLOOD COUNT 3.7 K/mm3 (4.0-10.0)
[2017-06-19] MEDS: NICOTINE 14 MG/24 HOURS TOPICAL PATCH TD SCH (10:20)
[2017-06-19] MEDS: PRENATAL VITAMINS W/ FOLIC ACID TABLET (FP) PO SCH (10:21)
--- NOTE | 2017-06-19 11:35 | PN ---
[facility] CIWA - CIWA Score Nausea/Vomitin-No Nausea/No Vomiting Muscle Tremors: 3 Anxiety: 4-Mod. Anxious/Guarded Agitation: 3 Paroxysmal Sweats: 1-Minimal Palms Moist Orientation: 0-Oriented Tacttile Disturbances: 0-None Auditory Disturbances: 0-None Visual Disturbances: 0-None Headache: 0-None Present CIWA-Ar Total Score: 11 BHS Progress Note (SOAP) Subjective: tremor anxiety restlessness sweating Objective: 06/19/17 11:31 Vital Signs Temperature 97.7 F 06/19/17 10:38 Pulse Rate 84 06/19/17 10:38 Respiratory Rate 18 06/19/17 10:38 Blood Pressure 151/97 06/19/17 10:38 O2 Sat by Pulse Oximetry (%) Laboratory Last Values WBC 3.7 K/mm3 (4.0-10.0) L 06/19/17 08:00 RBC 4.11 M/mm3 (4.00-5.60) 06/19/17 08:00 Hgb 13.4 GM/dL (11.7-16.9) 06/19/17 08:00 Hct 40.1 % (35.4-49) 06/19/17 08:00 MCV 97.4 fl (80-96) H 06/19/17 08:00 MCH 32.5 pg (25.7-33.7) 06/19/17 08:00 MCHC 33.4 g/dl (32.0-35.9) 06/19/17 08:00 RDW 12.8 % (11.9-15.9) 06/19/17 08:00 Plt Count 196 K/MM3 (134-434) 06/19/17 08:00 MPV 8.7 fl (7.5-11.1) 06/19/17 08:00 Sodium 137 mmol/L (136-145) 06/19/17 08:00 Potassium 4.4 mmol/L (3.5-5.1) 06/19/17 08:00 Chloride 98 mmol/L (98-107) 06/19/17 08:00 Carbon Dioxide 32 mmol/L (21-32) 06/19/17 08:00 Anion Gap 7 (8-16) L 06/19/17 08:00 BUN 12 mg/dL (7-18) 06/19/17 08:00 Creatinine 0.8 mg/dL (0.7-1.3) 06/19/17 08:00 Creat Clearance w eGFR > 60 (>60) 06/19/17 08:00 Random Glucose 87 mg/dL (74-106) 06/19/17 08:00 Calcium 9.1 mg/dL (8.5-10.1) 06/19/17 08:00 Total Bilirubin 1.2 mg/dL (0.2-1.0) H D 06/19/17 08:00 AST 96 U/L (15-37) H D 06/19/17 08:00 ALT 61 U/L (12-78) D 06/19/17 08:00 Alkaline Phosphatase 108 U/L (45-117) D 06/19/17 08:00 Total Protein 6.6 g/dl (6.4-8.2) 06/19/17 08:00 Albumin 3.6 g/dl (3.4-5.0) 06/19/17 08:00 Urine Color Yellow 06/19/17 08:00 Urine Appearance Clear 06/19/17 08:00 Urine pH 5.0 (5.0-8.0) D 06/19/17 08:00 Ur Specific [place] 1.015 (1.001-1.035) 06/19/17 08:00 Urine Protein Negative (NEGATIVE) 06/19/17 08:00 Urine Glucose (UA) Negative (NEGATIVE) 06/19/17 08:00 Urine Ketones Negative (NEGATIVE) 06/19/17 08:00 Urine Blood Negative (NEGATIVE) 06/19/17 08:00 Urine Nitrite Negative (NEGATIVE) 06/19/17 08:00 Urine Bilirubin Negative (NEGATIVE) 06/19/17 08:00 Urine Urobilinogen 2.0 mg/dL (0.2-1.0) 06/19/17 08:00 RPR Titer Nonreactive (NONREACTIVE) 06/19/17 08:00 lab noted Assessment: 06/19/17 11:33 withdrawal sx Plan: continue detox
[2017-06-19] MEDS ORDERED: BACLOFEN 10 MG TABLET (FP) PO ONE (11:41)
[2017-06-19] MEDS ORDERED: METHADONE HCL 10 MG TABLET PO ONE (13:30)
[2017-06-19] MEDS ORDERED: MINERAL OIL/PETROLAT/WATER TOPICAL CREAM 113 GM JAR TP ONE (13:30)
[2017-06-19 14:21] LABS: URINE LEUK ESTERASE NEGATIVE (NEGATIVE)
[2017-06-19] MEDS: THIAMINE HCL 100 MG TABLET (FP) PO SCH (22:28)
[2017-06-20] MEDS: chlordiazePOXIDE HCL 25 MG CAPSULE PO SCH ×3 (05:50→17:42)
[2017-06-20] MEDS: PHENYTOIN NA EXTENDED 100 MG CAPSULE (FP) PO SCH ×2 (05:50→22:17)
[2017-06-20] MEDS ORDERED: cloNIDine HCL 0.1 MG TABLET PO ONE (06:13)
[2017-06-20] MEDS ORDERED: IBUPROFEN 400 MG TABLET (FP) PO PRN (08:53)
[2017-06-20] MEDS: NICOTINE 14 MG/24 HOURS TOPICAL PATCH TD SCH (10:37)
[2017-06-20] MEDS: PRENATAL VITAMINS W/ FOLIC ACID TABLET (FP) PO SCH (10:37)
[2017-06-20] MEDS: IBUPROFEN 400 MG TABLET (FP) PO PRN (10:40)
[2017-06-20] MEDS ORDERED: METHADONE HCL 10 MG TABLET PO ONE (10:49)
[2017-06-20] MEDS ORDERED: METHADONE 40 MG, METHADONE 20 MG PO ONE (11:15)
[2017-06-20] MEDS ORDERED: METHADONE HCL 10 MG TABLET ONE (11:39)
[2017-06-20] MEDS ORDERED: METHADONE HCL 40 MG DISPERSABLE TABLET ONE (11:39)
--- NOTE | 2017-06-20 12:37 | PN ---
[facility] CIWA - CIWA Score Nausea/Vomitin-No Nausea/No Vomiting Muscle Tremors: 4-Moderate,w/Arms Extend Anxiety: 3 Agitation: 3 Paroxysmal Sweats: 3 Orientation: 0-Oriented Tacttile Disturbances: 0-None Auditory Disturbances: 0-None Visual Disturbances: 0-None Headache: 0-None Present CIWA-Ar Total Score: 13 S Progress Note (SOAP) Subjective: body aches sweats shakes interrupted sleep agitation irritable Objective: 06/20/17 12:34 Vital Signs Temperature 98.2 F 06/20/17 10:00 Pulse Rate 85 06/20/17 10:00 Respiratory Rate 18 06/20/17 10:00 Blood Pressure 144/96 06/20/17 10:00 O2 Sat by Pulse Oximetry (%) Laboratory Tests 06/19/17 06/19/17 06/19/17 08:00 08:00 08:00 WBC 3.7 L RBC 4.11 Hgb 13.4 Hct 40.1 MCV 97.4 H MCH 32.5 MCHC 33.4 RDW 12.8 Plt Count 196 MPV 8.7 Sodium 137 Potassium 4.4 Chloride 98 Carbon Dioxide 32 Anion Gap 7 L BUN 12 Creatinine 0.8 Creat Clearance w eGFR > 60 Random Glucose 87 Calcium 9.1 Total Bilirubin 1.2 H D AST 96 H D ALT 61 D Alkaline Phosphatase 108 D Total Protein 6.6 Albumin 3.6 Urine Color Urine Appearance Urine pH Ur Specific [place] Urine Protein Urine Glucose (UA) Urine Ketones Urine Blood Urine Nitrite Urine Bilirubin Urine Urobilinogen Ur Leukocyte Esterase Phenytoin RPR Titer Nonreactive 06/19/17 06/20/17 08:00 06:00 WBC RBC Hgb Hct MCV MCH MCHC RDW Plt Count MPV Sodium Potassium Chloride Carbon Dioxide Anion Gap BUN Creatinine Creat Clearance w eGFR Random Glucose Calcium Total Bilirubin AST ALT Alkaline Phosphatase Total Protein Albumin Urine Color Yellow Urine Appearance Clear Urine pH 5.0 D Ur Specific [place] 1.015 Urine Protein Negative Urine Glucose (UA) Negative Urine Ketones Negative Urine Blood Negative Urine Nitrite Negative Urine Bilirubin Negative Urine Urobilinogen 2.0 Ur Leukocyte Esterase Negative Phenytoin 2.7 L D RPR Titer dilantin level is sub therapeutic 2.7; loading dose 300mg x one now ordered lab repeated in am aaox3 ambulating no acute distress Assessment: 06/20/17 12:35 withdrawal sx Plan: continue detox increase fluids motrin 800mg prn flexiril prn lidocaine patch dilantin 300mg x one f/u lab results
[2017-06-20] MEDS ORDERED: PHENYTOIN NA EXTENDED 100 MG CAPSULE (FP) PO ONE (12:38)
--- NOTE | 2017-06-20 15:15 | EKG ---
Test Reason : Blood Pressure : / mmHG Vent. Rate : 078 BPM Atrial Rate : 078 BPM P-R Int : 130 ms QRS Dur : 100 ms QT Int : 386 ms P-R-T Axes : 062 049 051 degrees QTc Int : 440 ms NORMAL SINUS RHYTHM VOLTAGE CRITERIA FOR LEFT VENTRICULAR HYPERTROPHY ABNORMAL ECG WHEN COMPARED WITH ECG OF 10-AUG-2016 23:04, T WAVE AMPLITUDE HAS INCREASED IN ANTEROLATERAL LEADS Confirmed by DRU PANTOJA MD ([id number]) on 06/20/2017 3:15:10 PM Referred By: Confirmed By:DRU PANTOJA MD
[2017-06-20] MEDS: chlordiazePOXIDE 5 MG CAPSULE PO SCH (22:17)
[2017-06-20] MEDS: THIAMINE HCL 100 MG TABLET (FP) PO SCH (22:17)
[2017-06-21] MEDS: IBUPROFEN 400 MG TABLET (FP) PO PRN (04:08)
[2017-06-21] MEDS ORDERED: METHADONE HCL 40 MG DISPERSABLE TABLET PO SCH (06:00)
[2017-06-21] MEDS ORDERED: METHADONE HCL 40 MG DISPERSABLE TABLET ONE (07:04)
[2017-06-21] MEDS ORDERED: METHADONE HCL 10 MG TABLET ONE (07:05)
[2017-06-21] MEDS: chlordiazePOXIDE 5 MG CAPSULE PO SCH ×3 (07:05→17:53)
[2017-06-21] MEDS: METHADONE 40 MG, METHADONE 20 MG PO SCH (07:07)
[2017-06-21] MEDS: PHENYTOIN NA EXTENDED 100 MG CAPSULE (FP) PO SCH ×3 (07:08→22:12)
[2017-06-21] MEDS: NICOTINE 14 MG/24 HOURS TOPICAL PATCH TD SCH (10:33)
[2017-06-21] MEDS: PRENATAL VITAMINS W/ FOLIC ACID TABLET (FP) PO SCH (10:33)
--- NOTE | 2017-06-21 12:33 | PN ---
BHS Progress Note (SOAP) Subjective: sweats chills chronic body aches dry/cracked itchy feet Objective: 06/21/17 12:32 Vital Signs Temperature 97.3 F L 06/21/17 10:02 Pulse Rate 91 H 06/21/17 10:02 Respiratory Rate 18 06/21/17 10:02 Blood Pressure 142/103 06/21/17 10:02 O2 Sat by Pulse Oximetry (%) aaox3 ambulating no acute distress Assessment: 06/21/17 12:32 withdrawal sx Plan: continue detox increase fluids tinactin cream d/c in am
[2017-06-21] MEDS ORDERED: cloNIDine HCL 0.1 MG TABLET PO ONE (13:30)
[2017-06-21] MEDS: TOLNAFTATE 1% CREAM 15 GM TUBE TP SCH ×2 (14:16→22:12)
[2017-06-21] MEDS: THIAMINE HCL 100 MG TABLET (FP) PO SCH (22:12)
[2017-06-21] MEDS: chlordiazePOXIDE HCL 10 MG CAPSULE PO SCH (22:13)
[2017-06-22] MEDS: IBUPROFEN 400 MG TABLET (FP) PO PRN ×2 (00:23→10:39)
[2017-06-22] MEDS ORDERED: METHADONE HCL 40 MG DISPERSABLE TABLET ONE (04:44)
[2017-06-22] MEDS ORDERED: METHADONE HCL 10 MG TABLET ONE (04:45)
[2017-06-22] MEDS: chlordiazePOXIDE HCL 10 MG CAPSULE PO SCH ×2 (06:24→11:11)
[2017-06-22] MEDS: PHENYTOIN NA EXTENDED 100 MG CAPSULE (FP) PO SCH (06:39)
[2017-06-22] MEDS: METHADONE 40 MG, METHADONE 20 MG PO SCH (06:39)
--- NOTE | 2017-06-22 09:12 | DS ---
[facility] Detox Discharge Summary Admission Date: 06/18/17 Discharge Date: 06/22/17 - History Present History: Alcohol Dependence, Cannabis Dependence, Cocaine Dependence, Opioid Dependence, MMTP - Physical Exam Results Vital Signs: Vital Signs Temperature 98.1 F 06/22/17 07:15 Pulse Rate 91 H 06/22/17 07:15 Respiratory Rate 18 06/22/17 07:15 Blood Pressure 140/91 06/22/17 07:15 O2 Sat by Pulse Oximetry (%) - Treatment Hospital Course: Detox Protocol Followed, Detoxed Safely, Responded well, Discharged Condition Good, Rehab Referral Accepted - Medication Discharge Medications: Ambulatory Orders Phenytoin Na Extended [Dilantin -] 100 mg PO TID #90 capsule 05/11/16 Acamprosate Calcium 666 mg PO TID 08/10/16 Folic Acid - 1 mg PO DAILY 08/10/16 Multivitamins [Tab-A-Vit -] 1 tab PO DAILY 08/10/16 Thiamine Mononitrate [Vitamin B-1] 100 mg PO DAILY 08/10/16 Phenytoin Na Extended [Dilantin -] 100 mg PO TID #90 capsule 08/23/16 - Diagnosis (1) Alcohol dependence with uncomplicated withdrawal Current Visit: Yes Status: Chronic (2) Epilepsy Current Visit: Yes Status: Chronic (3) Marijuana dependence Current Visit: Yes Status: Chronic (4) Methadone maintenance therapy patient Current Visit: Yes Status: Chronic (5) Nicotine dependence Current Visit: Yes Status: Chronic Qualifiers: Nicotine product type: cigarettes Substance use status: uncomplicated Qualified Code(s): F17.210 - Nicotine dependence, cigarettes, uncomplicated (6) Osteoarthritis Current Visit: Yes Status: Chronic Qualifiers: Spinal region: lumbar (7) Hernia, inguinal, right Current Visit: No Status: Acute (8) Substance induced mood disorder Current Visit: No Status: Acute (9) Substance-induced sleep disorder Current Visit: No Status: Acute (10) Blurred vision, bilateral Current Visit: No Status: Chronic (11) Cocaine dependence Current Visit: No Status: Chronic Qualifiers: Substance use status: uncomplicated Qualified Code(s): F14.20 - Cocaine dependence, uncomplicated (12) Direct inguinal hernia Current Visit: No Status: Chronic (13) Opioid dependence Current Visit: No Status: Chronic Qualifiers: Substance use status: uncomplicated Qualified Code(s): F11.20 - Opioid dependence, uncomplicated - AMA Did Patient Leave Against Medical Advice: No
[2017-06-22 10:02] VITALS: BP 145/99; PULSE 100; TEMP 96.8
[2017-06-22] MEDS: PRENATAL VITAMINS W/ FOLIC ACID TABLET (FP) PO SCH (10:38)
[2017-06-22] MEDS: TOLNAFTATE 1% CREAM 15 GM TUBE TP SCH (10:38)
[2017-06-22] MEDS: NICOTINE 14 MG/24 HOURS TOPICAL PATCH TD SCH (11:11)
== END 2017-06-22 11:10 | disposition home or self-care (01) | DRG 773 ==
LOC: YASAS 12:33 → Y6N 21:08
PROVIDERS: ADMIT Internal Medicine; ATTEND Internal Medicine
PROC: HZ2ZZZZ Detoxification Services for Substance Abuse Treatment (ICD-10-PCS; principal; 2017-06-18)
DX: F11.20 Opioid dependence, uncomplicated (principal); F10.230 Alcohol dependence with withdrawal, uncomplicated; F14.20 Cocaine dependence, uncomplicated; F12.20 Cannabis dependence, uncomplicated; F17.210 Nicotine dependence, cigarettes, uncomplicated; F19.24 Other psychoactive substance dependence with psychoactive substance-induced mood disorder; F19.282 Other psychoactive substance dependence with psychoactive substance-induced sleep disorder; F32.9 Major depressive disorder, single episode, unspecified; G40.909 Epilepsy, unspecified, not intractable, without status epilepticus; I10 Essential (primary) hypertension; K40.90 Unilateral inguinal hernia, without obstruction or gangrene, not specified as recurrent; M47.896 Other spondylosis, lumbar region
CPT/HCPCS: 36415; 80053; 80185; 81003; 85027; 86593; 93005; 93010; J0475

== ENCOUNTER 2017-07-08 11:11 | Inpatient (IN) | payer OTHER ==
[2017-07-08 12:19] VITALS: BMI 21.7
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
[2017-07-08] MEDS ORDERED: P-EPHED 60MG/TRIPROLIDI 2.5MG TABLET PO PRN (17:26)
[2017-07-08] MEDS ORDERED: MAGNESIUM HYDROX 2400MG/30ML ORAL SUSPENSION 30 ML CUP PO PRN (17:26)
[2017-07-08] MEDS ORDERED: MAG HYDROX/AL HYDROX/SIMETH 30 ML UNIT-DOSE CUP PO PRN (17:26)
[2017-07-08] MEDS ORDERED: MENTHOL/PHENOL 1 EACH UD MM PRN (17:26)
[2017-07-08] MEDS ORDERED: MAGNESIUM CITRATE 300 ML BOTTLE PO PRN (17:26)
[2017-07-08] MEDS ORDERED: LOPERAMIDE HCL 2 MG CAPSULE PO PRN (17:26)
[2017-07-08] MEDS ORDERED: guaiFENesin/D-METHORPHAN HB 10 ML UNIT-DOSE CUPS PO PRN (17:26)
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
[2017-07-08] MEDS: PHENYTOIN NA EXTENDED 100 MG CAPSULE (FP) PO SCH (21:09)
[2017-07-08] MEDS: THIAMINE HCL 100 MG TABLET (FP) PO SCH (21:09)
[2017-07-09 04:07] LABS: URINE APPEARANCE SLCLOUDY; URINE BILIRUBIN NEGATIVE (NEGATIVE); URINE BLOOD NEGATIVE (NEGATIVE); URINE COLOR DKYELLOW; URINE GLUCOSE (UA) NEGATIVE (NEGATIVE); URINE KETONE TRACE (NEGATIVE); URINE LEUK ESTERASE NEGATIVE (NEGATIVE); URINE NITRITE NEGATIVE (NEGATIVE); URINE PROTEIN NEGATIVE (NEGATIVE)
[2017-07-09] MEDS: PHENYTOIN NA EXTENDED 100 MG CAPSULE (FP) PO SCH ×3 (06:18→21:18)
[2017-07-09] MEDS ORDERED: METHADONE HCL 10 MG TABLET PO SCH (09:15)
[2017-07-09] MEDS: PRENATAL VITAMINS W/ FOLIC ACID TABLET (FP) PO SCH (09:30)
[2017-07-09] MEDS ORDERED: METHADONE HCL 40 MG DISPERSABLE TABLET ONE (09:55)
[2017-07-09] MEDS ORDERED: METHADONE HCL 10 MG TABLET ONE (09:55)
[2017-07-09] MEDS: METHADONE 40 MG, METHADONE 20 MG PO SCH (10:02)
[2017-07-09 10:06] LABS: HEMATOCRIT 38.5 % (35.4-49); HEMOGLOBIN 12.5 GM/dL (11.7-16.9); MCH 31.4 pg (25.7-33.7); MCHC 32.4 g/dl (32.0-35.9); MEAN PLT VOLUME 8.9 fl (7.5-11.1); PLATELET COUNT 316 K/MM3 (134-434); RBC 3.97 M/mm3 (4.00-5.60); RDW 12.6 % (11.9-15.9); WHITE BLOOD COUNT 6.6 K/mm3 (4.0-10.0)
[2017-07-09 10:21] LABS: CHLORIDE 97 mmol/L (98-107); POTASSIUM 4.2 mmol/L (3.5-5.1); SODIUM 136 mmol/L (136-145)
[2017-07-09 10:37] LABS: ALBUMIN 3.8 g/dl (3.4-5.0); ALK PHOS 108 U/L (45-117); ANION GAP 10 (8-16); BILIRUBIN,TOTAL 0.9 mg/dL (0.2-1.0); BLOOD UREA NITROGEN 15 mg/dL (7-18); CO2 29 mmol/L (21-32); GLUCOSE,RANDOM 88 mg/dL (74-106); SGOT/AST 27 U/L (15-37); SGPT/ALT 44 U/L (12-78); TOT PROT 7.1 g/dl (6.4-8.2)
--- NOTE | 2017-07-09 11:27 | EKG ---
Test Reason : Blood Pressure : / mmHG Vent. Rate : 084 BPM Atrial Rate : 084 BPM P-R Int : 144 ms QRS Dur : 100 ms QT Int : 402 ms P-R-T Axes : 076 043 046 degrees QTc Int : 475 ms NORMAL SINUS RHYTHM NORMAL ECG WHEN COMPARED WITH ECG OF 18-JUN-2017 23:09, NO SIGNIFICANT CHANGE WAS FOUND BASELINE ARTIFACT Confirmed by BETI CHILEL MD ([id number]) on 07/09/2017 11:26:50 AM Referred By: Confirmed By:BETI CHILEL MD
[2017-07-09] MEDS ORDERED: PHENYTOIN NA EXTENDED 100 MG CAPSULE (FP) PO ONE (11:45)
[2017-07-09] MEDS: IBUPROFEN 400 MG TABLET (FP) PO PRN (18:44)
[2017-07-09] MEDS: THIAMINE HCL 100 MG TABLET (FP) PO SCH (21:18)
[2017-07-09] MEDS: ACETAMINOPHEN 325 MG TABLET (FP) PO PRN (21:19)
[2017-07-10] MEDS ORDERED: METHADONE HCL 10 MG TABLET ONE (04:41)
[2017-07-10] MEDS ORDERED: METHADONE HCL 40 MG DISPERSABLE TABLET ONE (04:42)
[2017-07-10] MEDS: PHENYTOIN NA EXTENDED 100 MG CAPSULE (FP) PO SCH ×3 (06:31→21:29)
[2017-07-10] MEDS: METHADONE 40 MG, METHADONE 20 MG PO SCH (06:31)
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
[2017-07-10] MEDS: PRENATAL VITAMINS W/ FOLIC ACID TABLET (FP) PO SCH (09:39)
[2017-07-10] MEDS: IBUPROFEN 400 MG TABLET (FP) PO PRN (09:40)
[2017-07-10] MEDS: THIAMINE HCL 100 MG TABLET (FP) PO SCH (21:29)
[2017-07-11] MEDS ORDERED: METHADONE HCL 40 MG DISPERSABLE TABLET ONE (05:53)
[2017-07-11] MEDS: PHENYTOIN NA EXTENDED 100 MG CAPSULE (FP) PO SCH ×3 (05:53→21:24)
[2017-07-11] MEDS: METHADONE 40 MG, METHADONE 20 MG PO SCH (05:53)
[2017-07-11] MEDS ORDERED: METHADONE HCL 10 MG TABLET ONE (05:53)
[2017-07-11] MEDS: PRENATAL VITAMINS W/ FOLIC ACID TABLET (FP) PO SCH (10:02)
[2017-07-11] MEDS: IBUPROFEN 400 MG TABLET (FP) PO PRN (10:02)
[2017-07-11] MEDS: NAPROXEN 500 MG TABLET (FP) PO SCH ×2 (14:37→21:24)
[2017-07-11] MEDS: THIAMINE HCL 100 MG TABLET (FP) PO SCH (21:24)
[2017-07-12] MEDS ORDERED: METHADONE HCL 40 MG DISPERSABLE TABLET ONE (04:01)
[2017-07-12] MEDS ORDERED: METHADONE HCL 10 MG TABLET ONE (04:01)
[2017-07-12] MEDS: METHADONE 40 MG, METHADONE 20 MG PO SCH (06:10)
[2017-07-12] MEDS: PHENYTOIN NA EXTENDED 100 MG CAPSULE (FP) PO SCH ×3 (06:10→21:04)
[2017-07-12] MEDS: ACETAMINOPHEN 325 MG TABLET (FP) PO PRN (06:12)
[2017-07-12] MEDS ORDERED: cloNIDine HCL 0.1 MG TABLET PO ONE (06:43)
[2017-07-12] MEDS: NAPROXEN 500 MG TABLET (FP) PO SCH ×2 (10:00→21:04)
[2017-07-12] MEDS: PRENATAL VITAMINS W/ FOLIC ACID TABLET (FP) PO SCH (10:00)
[2017-07-12] MEDS: THIAMINE HCL 100 MG TABLET (FP) PO SCH (21:04)
[2017-07-13] MEDS ORDERED: METHADONE HCL 10 MG TABLET ONE (05:09)
[2017-07-13] MEDS ORDERED: METHADONE HCL 40 MG DISPERSABLE TABLET ONE (05:10)
[2017-07-13] MEDS: METHADONE 40 MG, METHADONE 20 MG PO SCH (06:12)
[2017-07-13] MEDS: PHENYTOIN NA EXTENDED 100 MG CAPSULE (FP) PO SCH ×3 (06:12→22:06)
[2017-07-13] MEDS: PRENATAL VITAMINS W/ FOLIC ACID TABLET (FP) PO SCH (09:48)
[2017-07-13] MEDS: NAPROXEN 500 MG TABLET (FP) PO SCH ×2 (09:48→22:06)
[2017-07-13] MEDS: GABAPENTIN 100 MG CAPSULE (FP) PO SCH ×2 (14:34→22:06)
--- NOTE | 2017-07-13 15:26 | PN ---
[facility] Progress Note (SOAP) Subjective: Patient seen for c/o right inguinal hernia. As per patient, has chronic inguinal hernia and he supposed to have surgery but never did. As per patient, he follows up at [facility] and his PCP was just changed to a new PCP who he hasn't met as yet. Patient also c/o numbness in his big toes and is afraid he may have diabetes because he has family h/o DM. Patient aware that as per his lab result, there is no diabetes dx. He agreed to take neurontin and to follow up with his PCP for hernia surgery. Objective: 07/13/17 15:24 Last Vital Signs Temp Pulse Resp BP Pulse Ox 98.6 F 75 20 126/85 07/13/17 07:05 07/13/17 07:05 07/13/17 07:05 07/13/17 07:05 Laboratory Tests 07/08/17 07/09/17 07/09/17 23:28 06:00 06:00 WBC 6.6 D RBC 3.97 L Hgb 12.5 Hct 38.5 MCV 97.0 H MCH 31.4 MCHC 32.4 RDW 12.6 Plt Count 316 D MPV 8.9 Sodium 136 Potassium 4.2 Chloride 97 L Carbon Dioxide 29 Anion Gap 10 BUN 15 D Creatinine 1.0 D Creat Clearance w eGFR > 60 Random Glucose 88 Calcium 9.0 Total Bilirubin 0.9 D AST 27 D ALT 44 D Alkaline Phosphatase 108 Total Protein 7.1 Albumin 3.8 Urine Color Dkyellow Urine Appearance Slcloudy Urine pH 5.0 Ur Specific [place] 1.026 Urine Protein Negative Urine Glucose (UA) Negative Urine Ketones Trace H Urine Blood Negative Urine Nitrite Negative Urine Bilirubin Negative Urine Urobilinogen 2.0 Ur Leukocyte Esterase Negative Phenytoin RPR Titer 07/09/17 07/09/17 06:00 06:00 WBC RBC Hgb Hct MCV MCH MCHC RDW Plt Count MPV Sodium Potassium Chloride Carbon Dioxide Anion Gap BUN Creatinine Creat Clearance w eGFR Random Glucose Calcium Total Bilirubin AST ALT Alkaline Phosphatase Total Protein Albumin Urine Color Urine Appearance Urine pH Ur Specific [place] Urine Protein Urine Glucose (UA) Urine Ketones Urine Blood Urine Nitrite Urine Bilirubin Urine Urobilinogen Ur Leukocyte Esterase Phenytoin < 2.5 L D RPR Titer Nonreactive Labs noted Assessment: 01/03/18 15:24 Right inguinal hernia and neuropathy in toes Plan: Right inguinal hernia: continue motrin/tylenol prn, follow up with PCP post discharge for management Neuropathy in big toes: neurontin 100mg PO TID
[2017-07-13] MEDS: THIAMINE HCL 100 MG TABLET (FP) PO SCH (22:06)
[2017-07-14] MEDS ORDERED: METHADONE HCL 40 MG DISPERSABLE TABLET ONE (03:47)
[2017-07-14] MEDS ORDERED: METHADONE HCL 10 MG TABLET ONE (03:47)
[2017-07-14] MEDS: PHENYTOIN NA EXTENDED 100 MG CAPSULE (FP) PO SCH ×3 (06:13→21:50)
[2017-07-14] MEDS: METHADONE 40 MG, METHADONE 20 MG PO SCH (06:13)
[2017-07-14] MEDS: ACETAMINOPHEN 325 MG TABLET (FP) PO PRN ×2 (06:13→21:49)
[2017-07-14] MEDS: GABAPENTIN 100 MG CAPSULE (FP) PO SCH ×3 (06:13→21:50)
[2017-07-14] MEDS: NAPROXEN 500 MG TABLET (FP) PO SCH ×2 (10:19→21:50)
[2017-07-14] MEDS: PRENATAL VITAMINS W/ FOLIC ACID TABLET (FP) PO SCH (10:19)
[2017-07-14] MEDS: THIAMINE HCL 100 MG TABLET (FP) PO SCH (21:50)
[2017-07-15] MEDS ORDERED: METHADONE HCL 10 MG TABLET ONE (05:41)
[2017-07-15] MEDS ORDERED: METHADONE HCL 40 MG DISPERSABLE TABLET ONE (05:41)
[2017-07-15] MEDS: METHADONE 40 MG, METHADONE 20 MG PO SCH (05:59)
[2017-07-15] MEDS: PHENYTOIN NA EXTENDED 100 MG CAPSULE (FP) PO SCH ×3 (05:59→21:23)
[2017-07-15] MEDS: GABAPENTIN 100 MG CAPSULE (FP) PO SCH ×3 (05:59→21:23)
[2017-07-15] MEDS: ACETAMINOPHEN 325 MG TABLET (FP) PO PRN (06:00)
[2017-07-15] MEDS: NAPROXEN 500 MG TABLET (FP) PO SCH ×2 (09:48→21:23)
[2017-07-15] MEDS: PRENATAL VITAMINS W/ FOLIC ACID TABLET (FP) PO SCH (09:48)
[2017-07-15] MEDS: THIAMINE HCL 100 MG TABLET (FP) PO SCH (21:23)
[2017-07-16] MEDS ORDERED: METHADONE HCL 10 MG TABLET ONE (04:26)
[2017-07-16] MEDS ORDERED: METHADONE HCL 40 MG DISPERSABLE TABLET ONE (04:26)
[2017-07-16] MEDS: METHADONE 40 MG, METHADONE 20 MG PO SCH (05:55)
[2017-07-16] MEDS: PHENYTOIN NA EXTENDED 100 MG CAPSULE (FP) PO SCH ×3 (05:55→21:28)
[2017-07-16] MEDS: GABAPENTIN 100 MG CAPSULE (FP) PO SCH ×3 (05:55→21:28)
[2017-07-16] MEDS: NAPROXEN 500 MG TABLET (FP) PO SCH ×2 (10:30→21:28)
[2017-07-16] MEDS: PRENATAL VITAMINS W/ FOLIC ACID TABLET (FP) PO SCH (10:30)
[2017-07-16] MEDS: THIAMINE HCL 100 MG TABLET (FP) PO SCH (21:28)
[2017-07-17] MEDS ORDERED: METHADONE HCL 40 MG DISPERSABLE TABLET ONE (04:59)
[2017-07-17] MEDS ORDERED: METHADONE HCL 10 MG TABLET ONE (04:59)
[2017-07-17] MEDS: METHADONE 40 MG, METHADONE 20 MG PO SCH (06:01)
[2017-07-17] MEDS: GABAPENTIN 100 MG CAPSULE (FP) PO SCH ×3 (06:01→21:34)
[2017-07-17] MEDS: PHENYTOIN NA EXTENDED 100 MG CAPSULE (FP) PO SCH ×3 (06:01→21:34)
[2017-07-17] MEDS: PRENATAL VITAMINS W/ FOLIC ACID TABLET (FP) PO SCH (09:54)
[2017-07-17] MEDS: NAPROXEN 500 MG TABLET (FP) PO SCH ×2 (09:54→21:34)
[2017-07-17] MEDS: THIAMINE HCL 100 MG TABLET (FP) PO SCH (21:34)
[2017-07-18] MEDS ORDERED: METHADONE HCL 10 MG TABLET ONE (05:19)
[2017-07-18] MEDS ORDERED: METHADONE HCL 40 MG DISPERSABLE TABLET ONE (05:20)
[2017-07-18] MEDS: GABAPENTIN 100 MG CAPSULE (FP) PO SCH ×3 (06:26→21:31)
[2017-07-18] MEDS: METHADONE 40 MG, METHADONE 20 MG PO SCH (06:26)
[2017-07-18] MEDS: PHENYTOIN NA EXTENDED 100 MG CAPSULE (FP) PO SCH ×3 (06:26→21:31)
[2017-07-18] MEDS: PRENATAL VITAMINS W/ FOLIC ACID TABLET (FP) PO SCH (09:54)
[2017-07-18] MEDS: NAPROXEN 500 MG TABLET (FP) PO SCH ×2 (09:54→21:31)
[2017-07-18] MEDS: THIAMINE HCL 100 MG TABLET (FP) PO SCH (21:31)
[2017-07-19] MEDS ORDERED: METHADONE HCL 10 MG TABLET ONE (03:55)
[2017-07-19] MEDS ORDERED: METHADONE HCL 40 MG DISPERSABLE TABLET ONE (03:56)
[2017-07-19] MEDS: PHENYTOIN NA EXTENDED 100 MG CAPSULE (FP) PO SCH ×3 (06:05→21:25)
[2017-07-19] MEDS: GABAPENTIN 100 MG CAPSULE (FP) PO SCH ×3 (06:05→21:25)
[2017-07-19] MEDS: METHADONE 40 MG, METHADONE 20 MG PO SCH (06:05)
[2017-07-19] MEDS: PRENATAL VITAMINS W/ FOLIC ACID TABLET (FP) PO SCH (09:51)
[2017-07-19] MEDS: NAPROXEN 500 MG TABLET (FP) PO SCH ×2 (09:51→21:25)
[2017-07-19] MEDS: THIAMINE HCL 100 MG TABLET (FP) PO SCH (21:25)
[2017-07-20] MEDS ORDERED: METHADONE HCL 10 MG TABLET ONE (05:02)
[2017-07-20] MEDS ORDERED: METHADONE HCL 40 MG DISPERSABLE TABLET ONE (05:03)
[2017-07-20] MEDS: METHADONE 40 MG, METHADONE 20 MG PO SCH (06:02)
[2017-07-20] MEDS: GABAPENTIN 100 MG CAPSULE (FP) PO SCH ×3 (06:02→21:10)
[2017-07-20] MEDS: PHENYTOIN NA EXTENDED 100 MG CAPSULE (FP) PO SCH ×3 (06:02→21:10)
[2017-07-20] MEDS: NAPROXEN 500 MG TABLET (FP) PO SCH ×2 (09:37→21:10)
[2017-07-20] MEDS: PRENATAL VITAMINS W/ FOLIC ACID TABLET (FP) PO SCH (09:37)
[2017-07-20] MEDS: THIAMINE HCL 100 MG TABLET (FP) PO SCH (21:09)
[2017-07-21] MEDS ORDERED: METHADONE HCL 10 MG TABLET ONE (04:32)
[2017-07-21] MEDS ORDERED: METHADONE HCL 40 MG DISPERSABLE TABLET ONE (04:32)
[2017-07-21] MEDS: METHADONE 40 MG, METHADONE 20 MG PO SCH (06:15)
[2017-07-21] MEDS: GABAPENTIN 100 MG CAPSULE (FP) PO SCH ×3 (06:15→21:14)
[2017-07-21] MEDS: PHENYTOIN NA EXTENDED 100 MG CAPSULE (FP) PO SCH ×3 (06:15→21:14)
[2017-07-21 06:35] VITALS: PULSE 85
[2017-07-21] MEDS: PRENATAL VITAMINS W/ FOLIC ACID TABLET (FP) PO SCH (09:48)
[2017-07-21] MEDS: NAPROXEN 500 MG TABLET (FP) PO SCH ×2 (09:48→21:14)
--- NOTE | 2017-07-21 11:15 | PN ---
Psychiatric Progress Note Vital Signs: Vital Signs Period Temp Pulse Resp BP Sys/Mathis Pulse Ox Last 24 Hr 98 F 85 18-20 126/83 Date of Session: 07/21/17 Chief Complaint:: Discharge Note HPI: Patient addressing Alcohol Dependence comorbid with Opoid Dependence on Agonist Therapy and Alcohol-induced Mood Disorder ROS: Osteoartritis, direct inguinal hernia were medically managed Current Medications: Active Medications Generic Name Dose Route Start Last Admin Trade Name Freq PRN Reason Stop Dose Admin Acetaminophen 650 mg 07/08/17 17:26 07/15/17 06:00 Tylenol - PO 650 mg Q4H PRN Administration PAIN Al Hydroxide/Mg Hydroxide 30 ml 07/08/17 17:26 Mylanta Oral Suspension - PO Q6H PRN DYSPEPSIA Eucalyptus/Menthol/Phenol/Sorbitol 1 each 07/08/17 17:26 Cepastat Lozenge - MM Q4H PRN SORE THROAT Gabapentin 100 mg 07/13/17 14:00 07/21/17 06:15 Neurontin - PO 100 mg TID DEVIN Administration Guaifenesin 10 ml 07/08/17 17:26 Robitussin Dm - PO Q6H PRN COUGH Loperamide HCl 4 mg 07/08/17 17:26 Imodium - PO Q6H PRN DIARRHEA Magnesium Citrate 300 ml 07/08/17 17:26 Citroma - PO Q48H PRN CONSTIPATION Magnesium Hydroxide 30 ml 07/08/17 17:26 Milk Of Magnesia - PO DAILY PRN CONSTIPATION Methadone HCl 40 mg/ Methadone 60 mg 07/17/17 06:00 07/21/17 06:15 HCl 20 mg PO 07/24/17 05:59 60 mg DAILY@0600 DEVIN Administration Naproxen 500 mg 07/11/17 13:15 07/21/17 09:48 Naprosyn - PO 500 mg BID DEVIN Administration Phenytoin Sodium 100 mg 07/08/17 22:00 07/21/17 06:15 Dilantin - PO 100 mg TID DEVIN Administration Multivit/Folic Acid/Iron 1 tab 07/09/17 10:00 07/21/17 09:48 Vitamins (Sjr) - PO 1 tab DAILY DEVIN Administration Pseudoephedrine/Triprolidine 1 combo 07/08/17 17:26 Actifed - PO TID PRN NASAL CONGESTION Thiamine HCl 100 mg 07/08/17 22:00 07/20/17 21:09 Vitamin B1 - PO 100 mg HS DEVIN Administration Current Side Effect: No Lab tests ordered: Yes Lab tests reviewed: Yes Provider note:: Patient will complete this program on 07/22/17. He has met his treatment goals and will continue to address his issues in outpatient treatment at [facility]. 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 He is stable for discharge on 07/22/17 Total face to face time:: 35 Mental Status Exam - Mental Status Exam Alert and Oriented to: Time, Place, Person Cognitive Function: Fair Patient Appearance: Well Groomed Mood: Hopeful, Euthymic Affect: Appropriate Patient Behavior: Cooperative Speech Pattern: Clear Voice Loudness: Normal Thought Process: Intact, Goal Oriented Thought Disorder: Not Present Hallucinations: Denies Suicidal Ideation: Denies Homicidal Ideation: Denies Insight/Judgement: Fair Sleep: Well Appetite: Good Muscle strength/Tone: Normal Gait/Station: Normal Psychiatric Treatment Plan - Problem List (1) Alcohol dependence Current Visit: Yes (2) Opioid dependence on agonist therapy Current Visit: Yes (3) Nicotine dependence Current Visit: Yes Qualifiers: Nicotine product type: cigarettes Substance use status: uncomplicated Qualified Code(s): F17.210 - Nicotine dependence, cigarettes, uncomplicated (4) Alcohol-induced mood disorder Current Visit: Yes (5) Epilepsy Current Visit: Yes Qualifiers: Epilepsy type: unspecified Intractability: not intractable Status epilepticus: without status epilepticus Qualified Code(s): G40.909 - Epilepsy , unspecified, not intractable, without status epilepticus (6) Direct inguinal hernia Current Visit: No (7) Osteoarthritis Current Visit: No Qualifiers: Spinal region: lumbar Initial treatment plan: Patient will be discharged tomorrow and referred to [facility] for outpatient treatment
[2017-07-21] MEDS: THIAMINE HCL 100 MG TABLET (FP) PO SCH (21:14)
[2017-07-22] MEDS ORDERED: METHADONE HCL 10 MG TABLET ONE (04:51)
[2017-07-22] MEDS ORDERED: METHADONE HCL 40 MG DISPERSABLE TABLET ONE (04:52)
[2017-07-22] MEDS: PHENYTOIN NA EXTENDED 100 MG CAPSULE (FP) PO SCH (06:10)
[2017-07-22] MEDS: METHADONE 40 MG, METHADONE 20 MG PO SCH (06:10)
[2017-07-22] MEDS: GABAPENTIN 100 MG CAPSULE (FP) PO SCH (06:10)
[2017-07-22 07:19] VITALS: BP 145/95; TEMP 98.5
== END 2017-07-22 07:00 | disposition home or self-care (01) | DRG 772 ==
LOC: YASAS 11:11 → Y3W 13:53
PROVIDERS: ADMIT Psychiatry & Neurology Psychiatry; ATTEND Psychiatry & Neurology Psychiatry
PROC: HZ42ZZZ Group Counseling for Substance Abuse Treatment, Cognitive-Behavioral (ICD-10-PCS; principal; 2017-07-08)
DX: F11.20 Opioid dependence, uncomplicated (principal); F10.230 Alcohol dependence with withdrawal, uncomplicated; F17.210 Nicotine dependence, cigarettes, uncomplicated; F10.24 Alcohol dependence with alcohol-induced mood disorder; H53.8 Other visual disturbances; G40.909 Epilepsy, unspecified, not intractable, without status epilepticus; I10 Essential (primary) hypertension; M19.90 Unspecified osteoarthritis, unspecified site; K40.90 Unilateral inguinal hernia, without obstruction or gangrene, not specified as recurrent; Z87.828 Personal history of other (healed) physical injury and trauma; Z91.5 Personal history of self-harm
CPT/HCPCS: 36415; 80053; 80185; 81003; 85027; 86593; 93005; 93010

== ENCOUNTER 2017-09-27 17:08 | Inpatient (IN) | payer OTHER ==
[2017-09-27 23:29] VITALS: BMI 24.8
--- NOTE | 2017-09-27 23:57 | HP ---
[facility] Rehab Assess/Revision - Admission History Admitted to Rehab from: [facility] Date of Admission to Rehab: 09/27/2017 - Vital signs Vital Signs: Vital Signs Period Temp Pulse Resp BP Sys/Mathis Pulse Ox Last 24 Hr 97.3 F 90 18 138/83 - Findings Detox History & Physical reviewed: Yes Concur with findings: Yes Comments/Additional Findings: PT IS PRESENTLY INTOXICATED AUBREY 0.261. A/O X3 VSS
[2017-09-28] MEDS ORDERED: MAGNESIUM HYDROX 2400MG/30ML ORAL SUSPENSION 30 ML CUP PO PRN (00:01)
[2017-09-28] MEDS ORDERED: P-EPHED 60MG/TRIPROLIDI 2.5MG TABLET PO PRN (00:01)
[2017-09-28] MEDS ORDERED: MAGNESIUM CITRATE 300 ML BOTTLE PO PRN (00:01)
[2017-09-28] MEDS ORDERED: LOPERAMIDE HCL 2 MG CAPSULE PO PRN (00:01)
[2017-09-28] MEDS ORDERED: guaiFENesin/D-METHORPHAN HB 10 ML UNIT-DOSE CUPS PO PRN (00:01)
[2017-09-28] MEDS ORDERED: MENTHOL/PHENOL 1 EACH UD MM PRN (00:01)
[2017-09-28] MEDS ORDERED: MAG HYDROX/AL HYDROX/SIMETH 30 ML UNIT-DOSE CUP PO PRN (00:01)
[2017-09-28] MEDS: IBUPROFEN 400 MG TABLET (FP) PO PRN ×3 (02:22→21:43)
[2017-09-28] MEDS: hydrOXYzine PAMOATE 50 MG CAPSULE (FP) PO PRN ×2 (02:22→06:33)
[2017-09-28] MEDS: cloNIDine HCL 0.1 MG TABLET PO PRN (06:33)
[2017-09-28] MEDS: PHENYTOIN NA EXTENDED 100 MG CAPSULE (FP) PO SCH ×3 (06:33→21:41)
[2017-09-28] MEDS ORDERED: METHADONE HCL 10 MG TABLET PO SCH (11:00)
[2017-09-28] MEDS: NICOTINE 14 MG/24 HOURS TOPICAL PATCH TD SCH (11:10)
[2017-09-28] MEDS ORDERED: METHADONE HCL 10 MG TABLET ONE (11:11)
[2017-09-28] MEDS ORDERED: METHADONE HCL 40 MG DISPERSABLE TABLET ONE (11:11)
[2017-09-28] MEDS: PRENATAL VITAMINS W/ FOLIC ACID TABLET (FP) PO SCH (11:12)
[2017-09-28] MEDS: METHADONE 40 MG, METHADONE 30 MG PO SCH (11:13)
--- NOTE | 2017-09-28 12:03 | HP ---
Psychiatrist Admission - Data Date of interview: 09/28/17 Admission source: [facility] Identifying data: Pt. is a 52 year old male, single, father of three, unemployed, and currently homeless. Pt. admitted to for alcohol dependence. Medical History: Glauocoma, hyperholesterolemia, Seizures (06/2017), right iguineal hernia, left wrist 1998 [facility] Psychiatric History: Pt. denies psychiatric hospitalization, outpatient care and suicide attempt. Pt. reports seeing a psychiatrist while incarcerated. States it was protocol for every person to be seen. Mr Rainey is currently on methadone maintenance (70 mg/day) at the [facility] in [facility] Physical/Sexual Abuse/Trauma History: Denies. Vital Signs: Vital Signs - 24 hr 09/27/17 09/28/17 09/28/17 23:27 01:21 01:30 Temperature 97.3 F L 98.5 F Pulse Rate 90 81 Respiratory 18 16 18 Rate Blood Pressure 138/83 127/72 09/28/17 09/28/17 09/28/17 02:30 03:30 04:30 Temperature 98 F 97.8 F 98 F Pulse Rate 92 H 90 92 H Respiratory 16 18 18 Rate Blood Pressure 130/72 132/72 136/86 09/28/17 09/28/17 05:30 06:55 Temperature 97.8 F 98.1 F Pulse Rate 90 93 H Respiratory 18 16 Rate Blood Pressure 134/76 163/97 Allergies/Adverse Reactions: Allergies Allergy/AdvReac Type Severity Reaction Status Date / Time No Known Allergies Allergy Verified 09/28/17 02:03 Date of last physical exam: 09/19/17 Concur with the findings of this exam: Yes - Substance Abuse/Tx History Hx Alcohol Use: Yes Hx Substance Use: No (Urine Drug Screen Results: THC-Marijuana, OPI-Opiates, BAR -Barbiturates, MT) Hx Substance Use Treatment: Yes ([facility] 06/2017-07/2017) Mental Status Exam - Mental Status Exam Alert and Oriented to: Time, Place, Person Cognitive Function: Good Patient Appearance: Well Groomed Mood: Euthymic Affect: Mood Congruent Patient Behavior: Cooperative Speech Pattern: Appropriate Voice Loudness: Normal Thought Process: Goal Oriented Thought Disorder: Not Present Hallucinations: Denies Suicidal Ideation: Denies Homicidal Ideation: Denies Psychiatric Findings - Problem List (Painter 1, 2,3) (1) Alcohol dependence Current Visit: Yes Status: Acute (2) Alcohol-induced mood disorder Current Visit: Yes Status: Suspected (3) Opioid dependence on agonist therapy Current Visit: Yes Status: Acute (4) Marijuana dependence Current Visit: Yes Status: Chronic (5) Nicotine dependence Current Visit: Yes Status: Chronic Qualifiers: Nicotine product type: cigarettes Substance use status: uncomplicated Qualified Code(s): F17.210 - Nicotine dependence, cigarettes, uncomplicated - Initial Treatment Plan Initial Treatment Plan: Psychoeducation provided. Detoxification in progress. Observation.
--- NOTE | 2017-09-28 14:45 | PN ---
[facility] Progress Note Note: ekg reviewed, no need for repeat EKG
--- NOTE | 2017-09-28 14:59 | PN ---
S Progress Note Note: dilantin leel low 3.3 given dilantin loading dose of 300mg x1 dose, then dilantin 100mg tid.
[2017-09-28] MEDS ORDERED: PHENYTOIN NA EXTENDED 100 MG CAPSULE (FP) PO ONE (15:10)
--- NOTE | 2017-09-28 15:53 | EKG ---
Test Reason : Blood Pressure : / mmHG Vent. Rate : 080 BPM Atrial Rate : 080 BPM P-R Int : 140 ms QRS Dur : 090 ms QT Int : 368 ms P-R-T Axes : 049 045 049 degrees QTc Int : 424 ms NORMAL SINUS RHYTHM SEPTAL INFARCT , AGE UNDETERMINED ABNORMAL ECG WHEN COMPARED WITH ECG OF 19-SEP-2017 18:02, SEPTAL INFARCT IS NOW PRESENT Confirmed by GENOVEVA ANGELO MD ([id number]) on 09/28/2017 3:53:26 PM Referred By: Confirmed By:GENOVEVA ANGELO MD
[2017-09-28] MEDS: THIAMINE HCL 100 MG TABLET (FP) PO SCH (21:41)
[2017-09-28] MEDS: MELATONIN 5 MG TABLETS PO SCH (21:41)
[2017-09-29] MEDS ORDERED: METHADONE HCL 10 MG TABLET ONE (03:26)
[2017-09-29] MEDS ORDERED: METHADONE HCL 40 MG DISPERSABLE TABLET ONE (03:27)
[2017-09-29] MEDS: cloNIDine HCL 0.1 MG TABLET PO PRN (06:16)
[2017-09-29] MEDS: METHADONE 40 MG, METHADONE 30 MG PO SCH (06:17)
[2017-09-29] MEDS: PHENYTOIN NA EXTENDED 100 MG CAPSULE (FP) PO SCH ×3 (06:17→21:25)
[2017-09-29] MEDS: NICOTINE 14 MG/24 HOURS TOPICAL PATCH TD SCH (10:39)
[2017-09-29] MEDS: IBUPROFEN 400 MG TABLET (FP) PO PRN ×2 (10:39→21:26)
[2017-09-29] MEDS: PRENATAL VITAMINS W/ FOLIC ACID TABLET (FP) PO SCH (10:39)
[2017-09-29] MEDS: THIAMINE HCL 100 MG TABLET (FP) PO SCH (21:25)
[2017-09-29] MEDS: MELATONIN 5 MG TABLETS PO SCH (21:25)
[2017-09-29] MEDS: hydrOXYzine PAMOATE 50 MG CAPSULE (FP) PO PRN (21:26)
[2017-09-30] MEDS ORDERED: METHADONE HCL 10 MG TABLET ONE (03:27)
[2017-09-30] MEDS ORDERED: METHADONE HCL 40 MG DISPERSABLE TABLET ONE (03:27)
[2017-09-30] MEDS: cloNIDine HCL 0.1 MG TABLET PO PRN (06:22)
[2017-09-30] MEDS: METHADONE 40 MG, METHADONE 30 MG PO SCH (06:22)
[2017-09-30] MEDS: PHENYTOIN NA EXTENDED 100 MG CAPSULE (FP) PO SCH ×3 (06:22→21:27)
[2017-09-30] MEDS: PRENATAL VITAMINS W/ FOLIC ACID TABLET (FP) PO SCH (10:06)
[2017-09-30] MEDS: NICOTINE 14 MG/24 HOURS TOPICAL PATCH TD SCH (10:06)
[2017-09-30] MEDS: IBUPROFEN 400 MG TABLET (FP) PO PRN ×2 (10:07→21:28)
[2017-09-30] MEDS: ACETAMINOPHEN 325 MG TABLET (FP) PO PRN (14:21)
[2017-09-30] MEDS ORDERED: LIDOCAINE 5% TOPICAL PATCH TP ONE (15:00)
[2017-09-30] MEDS: MELATONIN 5 MG TABLETS PO SCH (21:27)
[2017-09-30] MEDS: hydrOXYzine PAMOATE 50 MG CAPSULE (FP) PO PRN (21:27)
[2017-09-30] MEDS: THIAMINE HCL 100 MG TABLET (FP) PO SCH (21:27)
[2017-09-30] MEDS ORDERED: LIDOCAINE PATCH REMOVAL MC ONE (22:00)
[2017-10-01] MEDS ORDERED: METHADONE HCL 10 MG TABLET ONE (05:03)
[2017-10-01] MEDS ORDERED: METHADONE HCL 40 MG DISPERSABLE TABLET ONE (05:03)
[2017-10-01] MEDS: METHADONE 40 MG, METHADONE 30 MG PO SCH (06:06)
[2017-10-01] MEDS: PHENYTOIN NA EXTENDED 100 MG CAPSULE (FP) PO SCH ×3 (06:06→21:37)
[2017-10-01] MEDS: IBUPROFEN 400 MG TABLET (FP) PO PRN ×2 (06:08→21:38)
[2017-10-01] MEDS: cloNIDine HCL 0.1 MG TABLET PO PRN (06:08)
[2017-10-01] MEDS: NICOTINE 14 MG/24 HOURS TOPICAL PATCH TD SCH (10:15)
[2017-10-01] MEDS: PRENATAL VITAMINS W/ FOLIC ACID TABLET (FP) PO SCH (10:15)
[2017-10-01] MEDS: LIDOCAINE 5% TOPICAL PATCH TP SCH (10:15)
--- NOTE | 2017-10-01 14:08 | PN ---
S Progress Note Note: Dilantin level still low; loading dose 300mg ordered - hold 2pm 100mg dose, continue 100mg TID repeat dilantin level in a.m
[2017-10-01] MEDS ORDERED: PHENYTOIN NA EXTENDED 100 MG CAPSULE (FP) PO ONE (14:30)
[2017-10-01] MEDS: MELATONIN 5 MG TABLETS PO SCH (21:37)
[2017-10-01] MEDS: THIAMINE HCL 100 MG TABLET (FP) PO SCH (21:37)
[2017-10-01] MEDS: LIDOCAINE PATCH REMOVAL MC SCH (21:40)
[2017-10-02] MEDS ORDERED: METHADONE HCL 10 MG TABLET ONE (05:10)
[2017-10-02] MEDS ORDERED: METHADONE HCL 40 MG DISPERSABLE TABLET ONE (05:10)
[2017-10-02] MEDS: METHADONE 40 MG, METHADONE 30 MG PO SCH (06:08)
[2017-10-02] MEDS: PHENYTOIN NA EXTENDED 100 MG CAPSULE (FP) PO SCH ×3 (06:08→21:20)
[2017-10-02] MEDS: IBUPROFEN 400 MG TABLET (FP) PO PRN ×2 (06:09→21:20)
[2017-10-02] MEDS: cloNIDine HCL 0.1 MG TABLET PO PRN (07:45)
--- NOTE | 2017-10-02 07:52 | PN ---
S Progress Note Note: CALLED FOR ELEVATED B/P Vital Signs - 24 hr 10/02/17 10/02/17 10/02/17 00:30 03:30 07:06 Temperature 98.4 F Pulse Rate 88 Respiratory 16 16 18 Rate Blood Pressure 159/95 CLIENT ASYMPTOMATIC CONT CLONIDINE ORDERED
[2017-10-02] MEDS: NICOTINE 14 MG/24 HOURS TOPICAL PATCH TD SCH (10:04)
[2017-10-02] MEDS: PRENATAL VITAMINS W/ FOLIC ACID TABLET (FP) PO SCH (10:04)
[2017-10-02] MEDS: LIDOCAINE 5% TOPICAL PATCH TP SCH (10:04)
[2017-10-02] MEDS: ACETAMINOPHEN 325 MG TABLET (FP) PO PRN (10:05)
[2017-10-02] MEDS ORDERED: PHENYTOIN NA EXTENDED 100 MG CAPSULE (FP) PO ONE (17:45)
--- NOTE | 2017-10-02 17:45 | PN ---
S Progress Note Note: Dilantin level 6.7, 300mg loading dose ordered. To repeat labs tue 10/04. Pt with no seizure activities, no acute distress
[2017-10-02] MEDS: THIAMINE HCL 100 MG TABLET (FP) PO SCH (21:20)
[2017-10-02] MEDS: MELATONIN 5 MG TABLETS PO SCH (21:20)
[2017-10-02] MEDS: LIDOCAINE PATCH REMOVAL MC SCH (21:21)
[2017-10-03] MEDS ORDERED: METHADONE HCL 40 MG DISPERSABLE TABLET ONE (03:21)
[2017-10-03] MEDS ORDERED: METHADONE HCL 10 MG TABLET ONE (03:21)
[2017-10-03] MEDS: PHENYTOIN NA EXTENDED 100 MG CAPSULE (FP) PO SCH ×3 (06:00→21:43)
[2017-10-03] MEDS: METHADONE 40 MG, METHADONE 30 MG PO SCH (06:00)
[2017-10-03] MEDS: LIDOCAINE 5% TOPICAL PATCH TP SCH (10:55)
[2017-10-03] MEDS: PRENATAL VITAMINS W/ FOLIC ACID TABLET (FP) PO SCH (10:55)
[2017-10-03] MEDS: NICOTINE 14 MG/24 HOURS TOPICAL PATCH TD SCH (10:55)
[2017-10-03] MEDS: NICOTINE POLACRILEX 2 MG GUM BUC PRN (10:59)
[2017-10-03] MEDS: IBUPROFEN 400 MG TABLET (FP) PO PRN ×2 (10:59→21:44)
[2017-10-03] MEDS: MELATONIN 5 MG TABLETS PO SCH (21:43)
[2017-10-03] MEDS: THIAMINE HCL 100 MG TABLET (FP) PO SCH (21:43)
[2017-10-03] MEDS: LIDOCAINE PATCH REMOVAL MC SCH (21:45)
[2017-10-04] MEDS ORDERED: METHADONE HCL 10 MG TABLET ONE (03:33)
[2017-10-04] MEDS ORDERED: METHADONE HCL 40 MG DISPERSABLE TABLET ONE (03:33)
[2017-10-04] MEDS: METHADONE 40 MG, METHADONE 30 MG PO SCH (06:01)
[2017-10-04] MEDS: PHENYTOIN NA EXTENDED 100 MG CAPSULE (FP) PO SCH ×3 (06:01→21:30)
[2017-10-04] MEDS: NICOTINE 14 MG/24 HOURS TOPICAL PATCH TD SCH (10:14)
[2017-10-04] MEDS: PRENATAL VITAMINS W/ FOLIC ACID TABLET (FP) PO SCH (10:14)
[2017-10-04] MEDS: NICOTINE POLACRILEX 2 MG GUM BUC PRN (10:16)
[2017-10-04] MEDS: IBUPROFEN 400 MG TABLET (FP) PO PRN (10:16)
[2017-10-04] MEDS: LIDOCAINE 5% TOPICAL PATCH TP SCH (10:16)
--- NOTE | 2017-10-04 14:03 | PN ---
[facility] Progress Note Note: Patient c/o back pain with minimal relief with Ibuprofen 40mg and Lidocaine patch, patient request pain medication to be change, cough x dry cough x 2 weeks since he stopped smoking and has not taken his symbicort. Denies chest pain, SOB, dyspnea or vertigo. Vital Signs Temperature 97.8 F 10/04/17 06:49 Pulse Rate 88 10/04/17 06:49 Respiratory Rate 18 10/04/17 06:49 Blood Pressure 145/87 10/04/17 06:49 O2 Sat by Pulse Oximetry (%) Laboratory Last Values Phenytoin 6.7 ug/ml (10.0-20.0) L D 10/02/17 07:45 labs noted, no seizure activity noted or reported Assessment GENERAL APPEARANCE: Well developed, well nourished, alert no acute distress. NOSE: No nasal discharge. THROAT: Krystal inflammation, swelling, exudate, or lesions. NECK: Neck supple, non-tender without lymphadenopathy, masses or thyromegaly. CARDIAC: Normal Rate and Rhythm . There is no peripheral edema, cyanosis or pallor. LUNGS: Clear to auscultation no adventitious breath sounds MUSKULOSKELETAL: Full ROM intact. No joint erythema or tenderness. + back pain B/L NEUROLOGICAL: CN II-XII intact. Plan: Dilantin loading dose 300mg on time, continue 100mg TID naproxen 375 mg BID Continue to monitor
[2017-10-04] MEDS ORDERED: PHENYTOIN NA EXTENDED 100 MG CAPSULE (FP) PO ONE (14:04)
--- NOTE | 2017-10-04 15:15 | PN ---
[facility] Progress Note Note: Patient c/o back pain with minimal relief with Ibuprofen 40mg and Lidocaine patch, patient request pain medication to be change. Vital Signs Temperature 97.8 F 10/04/17 06:49 Pulse Rate 88 10/04/17 06:49 Respiratory Rate 18 10/04/17 06:49 Blood Pressure 145/87 10/04/17 06:49 O2 Sat by Pulse Oximetry (%) Laboratory Last Values Phenytoin 6.7 ug/ml (10.0-20.0) L D 10/02/17 07:45 labs noted, no seizure activity noted or reported Assessment GENERAL APPEARANCE: Well developed, well nourished, alert no acute distress. CARDIAC: Normal Rate and Rhythm . There is no peripheral edema, cyanosis or pallor. LUNGS: Clear to auscultation no adventitious breath sounds MUSKULOSKELETAL: Full ROM intact. No joint erythema or tenderness. + back pain B/L NEUROLOGICAL: CN II-XII intact. Plan: Dilantin loading dose 300mg on time, continue 100mg TID naproxen 375 mg BID Continue to monitor
[2017-10-04] MEDS: NAPROXEN 375 MG TABLET (FP) PO SCH ×2 (16:05→21:30)
[2017-10-04] MEDS: MELATONIN 5 MG TABLETS PO SCH (21:30)
[2017-10-04] MEDS: THIAMINE HCL 100 MG TABLET (FP) PO SCH (21:30)
[2017-10-04] MEDS: LIDOCAINE PATCH REMOVAL MC SCH (21:31)
[2017-10-05] MEDS ORDERED: METHADONE HCL 10 MG TABLET ONE (03:37)
[2017-10-05] MEDS ORDERED: METHADONE HCL 40 MG DISPERSABLE TABLET ONE (03:38)
[2017-10-05] MEDS: METHADONE 40 MG, METHADONE 30 MG PO SCH (05:52)
[2017-10-05] MEDS: PHENYTOIN NA EXTENDED 100 MG CAPSULE (FP) PO SCH ×3 (06:24→21:26)
[2017-10-05] MEDS: PRENATAL VITAMINS W/ FOLIC ACID TABLET (FP) PO SCH (10:01)
[2017-10-05] MEDS: LIDOCAINE 5% TOPICAL PATCH TP SCH (10:02)
[2017-10-05] MEDS: NICOTINE 14 MG/24 HOURS TOPICAL PATCH TD SCH (10:03)
[2017-10-05] MEDS: NAPROXEN 375 MG TABLET (FP) PO SCH ×2 (10:04→21:26)
[2017-10-05] MEDS: NICOTINE POLACRILEX 2 MG GUM BUC PRN (10:05)
--- NOTE | 2017-10-05 16:32 | PN ---
[facility] Progress Note Note: Labs reviewed. Dilantin level 8.2. Increased from 6.7. Will continue same does of dilantin and repeat level on Tuesday10/06/17.
[2017-10-05] MEDS: MELATONIN 5 MG TABLETS PO SCH (21:26)
[2017-10-05] MEDS: THIAMINE HCL 100 MG TABLET (FP) PO SCH (21:26)
[2017-10-05] MEDS: LIDOCAINE PATCH REMOVAL MC SCH (21:26)
[2017-10-06] MEDS ORDERED: METHADONE HCL 40 MG DISPERSABLE TABLET ONE (05:22)
[2017-10-06] MEDS ORDERED: METHADONE HCL 10 MG TABLET ONE (05:22)
[2017-10-06] MEDS: PHENYTOIN NA EXTENDED 100 MG CAPSULE (FP) PO SCH ×3 (06:00→21:51)
[2017-10-06] MEDS: METHADONE 40 MG, METHADONE 30 MG PO SCH (06:00)
[2017-10-06] MEDS: NAPROXEN 375 MG TABLET (FP) PO SCH ×2 (10:22→21:52)
[2017-10-06] MEDS: NICOTINE 14 MG/24 HOURS TOPICAL PATCH TD SCH (10:23)
[2017-10-06] MEDS: LIDOCAINE 5% TOPICAL PATCH TP SCH (10:23)
[2017-10-06] MEDS: PRENATAL VITAMINS W/ FOLIC ACID TABLET (FP) PO SCH (10:23)
--- NOTE | 2017-10-06 15:39 | PN ---
[facility] Progress Note Note: Patient reports his neuropathy is bothering and wishes to check his blood sugar. Dilantin labs review, level 8.2L, sub-therapeutic. Vital Signs Temperature 98.9 F 10/06/17 07:22 Pulse Rate 98 H 10/06/17 07:22 Respiratory Rate 18 10/06/17 07:22 Blood Pressure 125/89 10/06/17 07:22 O2 Sat by Pulse Oximetry (%) Laboratory Last Values Phenytoin 8.2 ug/ml (10.0-20.0) L D 10/05/17 07:30 labs noted, no seizure activity noted or reported Assessment GENERAL APPEARANCE: Well developed, well nourished, alert no acute distress. CARDIAC: Normal Rate and Rhythm . There is no peripheral edema, cyanosis or pallor. LUNGS: Clear to auscultation no adventitious breath sounds MUSKULOSKELETAL: Full ROM intact. No joint erythema or tenderness. + back pain B/L NEUROLOGICAL: CN II-XII intact. Plan: Dilantin loading dose 300mg on time, continue 100mg TID Increase fluids ambulate fasting BGM 10/07/17 Continue to monitor
[2017-10-06] MEDS: LIDOCAINE PATCH REMOVAL MC SCH (21:51)
[2017-10-06] MEDS: MELATONIN 5 MG TABLETS PO SCH (21:51)
[2017-10-06] MEDS: THIAMINE HCL 100 MG TABLET (FP) PO SCH (21:51)
[2017-10-07] MEDS ORDERED: METHADONE HCL 10 MG TABLET ONE (03:52)
[2017-10-07] MEDS ORDERED: METHADONE HCL 40 MG DISPERSABLE TABLET ONE (03:52)
[2017-10-07] MEDS: PHENYTOIN NA EXTENDED 100 MG CAPSULE (FP) PO SCH ×3 (06:02→21:24)
[2017-10-07] MEDS: METHADONE 40 MG, METHADONE 30 MG PO SCH (06:02)
[2017-10-07] MEDS: cloNIDine HCL 0.1 MG TABLET PO PRN (06:50)
[2017-10-07] MEDS: NICOTINE 14 MG/24 HOURS TOPICAL PATCH TD SCH (10:04)
[2017-10-07] MEDS: LIDOCAINE 5% TOPICAL PATCH TP SCH (10:04)
[2017-10-07] MEDS: PRENATAL VITAMINS W/ FOLIC ACID TABLET (FP) PO SCH (10:05)
[2017-10-07] MEDS: NAPROXEN 375 MG TABLET (FP) PO SCH ×3 (10:05→21:24)
[2017-10-07] MEDS: NICOTINE POLACRILEX 2 MG GUM BUC PRN (10:08)
[2017-10-07] MEDS ORDERED: PHENYTOIN NA EXTENDED 100 MG CAPSULE (FP) PO ONE (16:13)
--- NOTE | 2017-10-07 16:23 | PN ---
[facility] Progress Note Note: Vital Signs Temperature 99.0 F 10/07/17 07:17 Pulse Rate 80 10/07/17 11:18 Respiratory Rate 18 10/07/17 11:18 Blood Pressure 113/72 10/07/17 11:18 O2 Sat by Pulse Oximetry (%) Laboratory 10/01/17 10/02/17 10/05/17 07:40 07:45 07:30 POC Glucometer Phenytoin 5.0 ug/ml L D ug/ml 6.7 ug/ml L D ug/ml 8.2 ug/ml L D ug/ml (10.0-20.0) (10.0-20.0) (10.0-20.0) 10/07/17 10/07/17 06:03 08:30 POC Glucometer 102 UNITS UNITS (80-120) Phenytoin 4.3 ug/ml L D ug/ml (10.0-20.0) No seizure activity reported Plan: Dilantin loading dose 300mg on time, continue 100mg TID Repeat Dilantin level Seizure precautions Continue to monitor
[2017-10-07] MEDS: LIDOCAINE PATCH REMOVAL MC SCH (21:24)
[2017-10-07] MEDS: THIAMINE HCL 100 MG TABLET (FP) PO SCH (21:24)
[2017-10-07] MEDS: MELATONIN 5 MG TABLETS PO SCH (21:24)
[2017-10-08] MEDS ORDERED: METHADONE HCL 10 MG TABLET ONE (03:33)
[2017-10-08] MEDS ORDERED: METHADONE HCL 40 MG DISPERSABLE TABLET ONE (03:34)
[2017-10-08] MEDS: METHADONE 40 MG, METHADONE 30 MG PO SCH (06:08)
[2017-10-08] MEDS: PHENYTOIN NA EXTENDED 100 MG CAPSULE (FP) PO SCH ×3 (06:09→21:50)
[2017-10-08] MEDS: NAPROXEN 375 MG TABLET (FP) PO SCH ×2 (10:33→21:50)
[2017-10-08] MEDS: PRENATAL VITAMINS W/ FOLIC ACID TABLET (FP) PO SCH (10:33)
[2017-10-08] MEDS: NICOTINE POLACRILEX 2 MG GUM BUC PRN (10:34)
[2017-10-08] MEDS: LIDOCAINE 5% TOPICAL PATCH TP SCH (10:34)
[2017-10-08] MEDS: NICOTINE 14 MG/24 HOURS TOPICAL PATCH TD SCH (10:34)
--- NOTE | 2017-10-08 12:02 | PN ---
[facility] Progress Note Note: Psychiatry Attending's institutional research director note : Came to [facility] [place]. Reason : To evaluate Mr Rainey. Patient wants to leave the program. He was instructed to wait for psychiatrist. NOT found on the unit. As per nurse,patient declined and left. Not on psychotropic medications. See staff's notes for details.
[2017-10-08] MEDS: THIAMINE HCL 100 MG TABLET (FP) PO SCH (21:49)
[2017-10-08] MEDS: MELATONIN 5 MG TABLETS PO SCH (21:50)
[2017-10-08] MEDS: LIDOCAINE PATCH REMOVAL MC SCH (21:50)
[2017-10-09] MEDS ORDERED: METHADONE HCL 10 MG TABLET ONE (03:30)
[2017-10-09] MEDS ORDERED: METHADONE HCL 40 MG DISPERSABLE TABLET ONE (03:30)
[2017-10-09] MEDS: PHENYTOIN NA EXTENDED 100 MG CAPSULE (FP) PO SCH ×3 (06:14→21:21)
[2017-10-09] MEDS: METHADONE 40 MG, METHADONE 30 MG PO SCH (06:14)
[2017-10-09] MEDS: PRENATAL VITAMINS W/ FOLIC ACID TABLET (FP) PO SCH (10:42)
[2017-10-09] MEDS: NICOTINE 14 MG/24 HOURS TOPICAL PATCH TD SCH (10:42)
[2017-10-09] MEDS: LIDOCAINE 5% TOPICAL PATCH TP SCH (10:43)
[2017-10-09] MEDS: NAPROXEN 375 MG TABLET (FP) PO SCH ×2 (10:43→21:21)
[2017-10-09] MEDS: MELATONIN 5 MG TABLETS PO SCH (21:20)
[2017-10-09] MEDS: LIDOCAINE PATCH REMOVAL MC SCH (21:21)
[2017-10-09] MEDS: THIAMINE HCL 100 MG TABLET (FP) PO SCH (21:21)
[2017-10-10] MEDS ORDERED: METHADONE HCL 10 MG TABLET ONE (05:05)
[2017-10-10] MEDS ORDERED: METHADONE HCL 40 MG DISPERSABLE TABLET ONE (05:06)
[2017-10-10] MEDS: METHADONE 40 MG, METHADONE 30 MG PO SCH (06:43)
[2017-10-10] MEDS: PHENYTOIN NA EXTENDED 100 MG CAPSULE (FP) PO SCH ×3 (07:52→21:49)
[2017-10-10] MEDS: PRENATAL VITAMINS W/ FOLIC ACID TABLET (FP) PO SCH (10:21)
[2017-10-10] MEDS: NICOTINE 14 MG/24 HOURS TOPICAL PATCH TD SCH (10:22)
[2017-10-10] MEDS: NAPROXEN 375 MG TABLET (FP) PO SCH ×2 (10:23→21:49)
[2017-10-10] MEDS: LIDOCAINE 5% TOPICAL PATCH TP SCH (10:24)
[2017-10-10] MEDS: ACETAMINOPHEN 325 MG TABLET (FP) PO PRN (14:26)
[2017-10-10] MEDS: THIAMINE HCL 100 MG TABLET (FP) PO SCH (21:49)
[2017-10-10] MEDS: MELATONIN 5 MG TABLETS PO SCH (21:50)
[2017-10-10] MEDS: LIDOCAINE PATCH REMOVAL MC SCH (21:50)
[2017-10-11] MEDS ORDERED: METHADONE HCL 10 MG TABLET ONE (04:39)
[2017-10-11] MEDS ORDERED: METHADONE HCL 40 MG DISPERSABLE TABLET ONE (04:40)
[2017-10-11] MEDS: METHADONE 40 MG, METHADONE 30 MG PO SCH (06:04)
[2017-10-11] MEDS: PHENYTOIN NA EXTENDED 100 MG CAPSULE (FP) PO SCH (06:04)
[2017-10-11 07:56] VITALS: BP 149/96; PULSE 96; TEMP 99.3
--- NOTE | 2017-10-11 08:28 | PN ---
Psychiatric Progress Note Vital Signs: Vital Signs Period Temp Pulse Resp BP Sys/Mathis Pulse Ox Last 24 Hr 99.3 F 96 18-18 149/96 Date of Session: 10/11/17 Chief Complaint:: discharge visit HPI: Patient has adressed alcohol , cannabis, opioid, nicotine dependence comorbid alcohol induced mood disorder. ROS: Glauocoma, hyperholesterolemia, Seizures medically managed. Current Medications: Active Medications Generic Name Dose Route Start Last Admin Trade Name Freq PRN Reason Stop Dose Admin Acetaminophen 650 mg 09/28/17 00:01 10/10/17 14:26 Tylenol - PO 650 mg Q4H PRN Administration FEVER Al Hydroxide/Mg Hydroxide 30 ml 09/28/17 00:01 Mylanta Oral Suspension - PO Q6H PRN DYSPEPSIA Clonidine 0.2 mg 09/28/17 01:35 10/07/17 06:50 Catapres - PO 0.2 mg Q6H PRN Administration WITHDRAWAL(CONT SUBST) Eucalyptus/Menthol/Phenol/Sorbitol 1 each 09/28/17 00:01 Cepastat Lozenge - MM Q4H PRN SORE THROAT Guaifenesin 10 ml 09/28/17 00:01 Robitussin Dm - PO Q6H PRN COUGH Hydroxyzine Pamoate 50 mg 09/28/17 00:01 09/30/17 21:27 Vistaril - PO 50 mg Q4H PRN Administration AGITATION Lidocaine 1 patch 10/01/17 10:00 10/10/17 10:24 Lidoderm Patch - TP 1 patch DAILY DEVIN Administration Loperamide HCl 4 mg 09/28/17 00:01 Imodium - PO Q6H PRN DIARRHEA Magnesium Citrate 300 ml 09/28/17 00:01 Citroma - PO Q48H PRN CONSTIPATION Magnesium Hydroxide 30 ml 09/28/17 00:01 Milk Of Magnesia - PO DAILY PRN CONSTIPATION Melatonin 5 mg 09/28/17 22:00 10/10/17 21:50 Melatonin PO 5 mg HS DEVIN Administration Methadone HCl 40 mg/ Methadone 70 mg 10/06/17 06:00 10/11/17 06:04 HCl 30 mg PO 10/13/17 05:59 70 mg DAILY@0600 DEVIN Administration Miscellaneous 1 each 10/01/17 22:00 10/10/17 21:50 Lidoderm Patch Removal MC Not Given DAILY@2200 [facility] Naproxen 375 mg 10/04/17 14:00 10/10/17 21:49 Naprosyn - PO 375 mg BID DEVIN Administration Nicotine 14 mg 09/28/17 10:00 10/10/17 10:22 Nicoderm Patch - TD 14 mg DAILY DEVIN Administration Nicotine Polacrilex 2 mg 09/28/17 00:01 10/08/17 10:34 Nicorette Gum - BUC 2 mg Q2H PRN Administration NICOTINE REPLACEMENT RX Phenytoin Sodium 100 mg 09/28/17 06:00 10/11/17 06:04 Dilantin - PO 100 mg TID DEVIN Administration Multivit/Folic Acid/Iron 1 tab 09/28/17 10:00 10/10/17 10:21 Vitamins (Sjr) - PO 1 tab DAILY DEVIN Administration Pseudoephedrine/Triprolidine 1 combo 09/28/17 00:01 Actifed - PO TID PRN NASAL CONGESTION Thiamine HCl 100 mg 09/28/17 22:00 10/10/17 21:49 Vitamin B1 - PO 100 mg HS DEVIN Administration Current Side Effect: No Lab tests ordered: No Lab tests reviewed: Yes Provider note:: patient has completed today his treatment and met his goals, will continue to address his issues at [facility] as a residential and [facility] ( his [facility]) outpatient treatment program. He gained indights into his addiction, understands the negative consequiences of his addiction and motivated to continue maintain abstinence, reports has been feeling much better. Patient was encouraged to utilize all supports available to prevent relapses, patient is stable for discharge today. Total face to face time:: 35 Mental Status Exam - Mental Status Exam Alert and Oriented to: Time, Place, Person Cognitive Function: Good Patient Appearance: Well Groomed Mood: Hopeful Affect: Appropriate, Mood Congruent Patient Behavior: Appropriate, Cooperative Speech Pattern: Clear, Appropriate Voice Loudness: Normal Thought Process: Intact, Goal Oriented Thought Disorder: Not Present Hallucinations: Denies Suicidal Ideation: Denies Homicidal Ideation: Denies Insight/Judgement: Fair Sleep: Fair Appetite: Good Muscle strength/Tone: Normal Gait/Station: Normal Psychiatric Treatment Plan - Problem List (1) Alcohol dependence Current Visit: Yes (2) Back pain Current Visit: Yes Qualifiers: Back pain location: low back pain Back pain laterality: bilateral Sciatica presence: without sciatica (3) Opioid dependence on agonist therapy Current Visit: Yes (4) Marijuana dependence Current Visit: Yes (5) Neuropathy Current Visit: Yes (6) Alcohol-induced mood disorder Current Visit: Yes
[2017-10-11] MEDS: NAPROXEN 375 MG TABLET (FP) PO SCH (10:06)
[2017-10-11] MEDS: PRENATAL VITAMINS W/ FOLIC ACID TABLET (FP) PO SCH (10:06)
[2017-10-11] MEDS: NICOTINE 14 MG/24 HOURS TOPICAL PATCH TD SCH (10:09)
[2017-10-11] MEDS: LIDOCAINE 5% TOPICAL PATCH TP SCH (10:09)
== END 2017-10-11 10:50 | disposition home or self-care (01) | DRG 772 ==
LOC: YASAS 17:08 → Y5N 23:31
PROVIDERS: ADMIT Psychiatry & Neurology Psychiatry; ATTEND Psychiatry & Neurology Psychiatry
PROC: HZ42ZZZ Group Counseling for Substance Abuse Treatment, Cognitive-Behavioral (ICD-10-PCS; principal; 2017-09-27)
DX: F11.20 Opioid dependence, uncomplicated (principal); F10.20 Alcohol dependence, uncomplicated; F12.20 Cannabis dependence, uncomplicated; F17.210 Nicotine dependence, cigarettes, uncomplicated; F10.24 Alcohol dependence with alcohol-induced mood disorder; G40.909 Epilepsy, unspecified, not intractable, without status epilepticus; G62.9 Polyneuropathy, unspecified; E78.00 Pure hypercholesterolemia, unspecified; M54.5 Low back pain; T42.0X6A Underdosing of hydantoin derivatives, initial encounter; Y92.89 Other specified places as the place of occurrence of the external cause; Z59.0 Homelessness
CPT/HCPCS: 36415; 80185; 82962; 93005; 93010; J0735

== ENCOUNTER 2018-06-13 14:38 | Inpatient (IN) | payer OTHER ==
[2018-06-13 16:55] VITALS: BMI 21.5
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
[2018-06-13] MEDS ORDERED: NICOTINE POLACRILEX 2 MG GUM BC PRN (20:49)
[2018-06-13] MEDS ORDERED: MAGNESIUM HYDROX 2400MG/30ML ORAL SUSPENSION 30 ML CUP PO PRN (20:49)
[2018-06-13] MEDS ORDERED: MAG HYDROX/AL HYDROX/SIMETH 30 ML UNIT-DOSE CUP PO PRN (20:49)
[2018-06-13] MEDS ORDERED: LOPERAMIDE HCL 2 MG CAPSULE PO PRN (20:49)
[2018-06-13] MEDS ORDERED: chlordiazePOXIDE 5 MG CAPSULE PO PRN (20:49)
[2018-06-13] MEDS ORDERED: MENTHOL/PHENOL 1 EACH UD MM PRN (20:49)
[2018-06-13] MEDS ORDERED: MAGNESIUM CITRATE 300 ML BOTTLE PO PRN (20:49)
[2018-06-13] MEDS ORDERED: guaiFENesin 200 MG/10 ML 10 ML UNIT-DOSE CUPS PO PRN (20:55)
[2018-06-13] MEDS ORDERED: ALBUTEROL SO4 0.083% IH SOL 2.5 MG/3 ML VIAL.NEB. NEB PRN (20:56)
[2018-06-13] MEDS ORDERED: chlordiazePOXIDE 5 MG CAPSULE PO ONE (21:15)
[2018-06-13] MEDS ORDERED: ALBUTEROL SO4 0.083% IH SOL 2.5 MG/3 ML VIAL.NEB. NEB ONE (21:15)
[2018-06-13] MEDS: THIAMINE HCL 100 MG TABLET (FP) PO SCH (22:21)
[2018-06-13] MEDS: PHENYTOIN NA EXTENDED 100 MG CAPSULE (FP) PO SCH (22:21)
[2018-06-13] MEDS: MELATONIN 5 MG TABLETS PO PRN (22:23)
[2018-06-13] MEDS: chlordiazePOXIDE 5 MG CAPSULE PO SCH (22:48)
[2018-06-14] MEDS: PHENYTOIN NA EXTENDED 100 MG CAPSULE (FP) PO SCH ×3 (05:33→22:29)
[2018-06-14] MEDS: chlordiazePOXIDE 5 MG CAPSULE PO SCH ×4 (05:33→22:32)
[2018-06-14] MEDS: IBUPROFEN 400 MG TABLET (FP) PO PRN ×2 (08:37→17:38)
[2018-06-14] MEDS: PRENATAL VITAMINS W/ FOLIC ACID TABLET (FP) PO SCH (10:41)
[2018-06-14] MEDS: NICOTINE 14 MG/24 HOURS TOPICAL PATCH TD SCH (10:42)
[2018-06-14] MEDS: ACETAMINOPHEN 325 MG TABLET (FP) PO PRN (10:42)
[2018-06-14] MEDS ORDERED: METHADONE HCL 10 MG TABLET PO ONE (10:46)
[2018-06-14 10:59] LABS: ALBUMIN 3.3 g/dl (3.4-5.0); ALK PHOS 109 U/L (45-117); ANION GAP 9 MMOL/L (8-16); BILIRUBIN,TOTAL 0.9 mg/dL (0.2-1); BLOOD UREA NITROGEN 9 mg/dL (7-18); CALCIUM 8.7 mg/dL (8.5-10.1); CHLORIDE 100 mmol/L (98-107); CO2 31 mmol/L (21-32); CREATININE 0.7 mg/dL (0.55-1.3); GLUCOSE,RANDOM 92 mg/dL (74-106); POTASSIUM 3.9 mmol/L (3.5-5.1); SGOT/AST 20 U/L (15-37); SGPT/ALT 20 U/L (13-61); SODIUM 139 mmol/L (136-145); TOT PROT 6.4 g/dl (6.4-8.2)
[2018-06-14] MEDS ORDERED: METHADONE 40 MG, METHADONE 30 MG, METHADONE 5 MG PO ONE (11:15)
[2018-06-14 11:22] LABS: HEMATOCRIT 38.5 % (35.4-49); HEMOGLOBIN 13.6 GM/dL (11.7-16.9); MCH 34.4 pg (25.7-33.7); MCHC 35.4 g/dl (32.0-35.9); MEAN CELL VOLUME 97.1 fl (80-96); MEAN PLT VOLUME 8.8 fl (7.5-11.1); PLATELET COUNT 199 K/MM3 (134-434); RBC 3.97 M/mm3 (4.00-5.60); RDW 14.1 % (11.9-15.9); WHITE BLOOD COUNT 3.2 K/mm3 (4.0-10.0)
[2018-06-14] MEDS ORDERED: METHADONE HCL 5 MG TABLET ONE (11:34)
[2018-06-14] MEDS ORDERED: METHADONE HCL 40 MG DISPERSABLE TABLET ONE (11:35)
[2018-06-14] MEDS ORDERED: METHADONE HCL 10 MG TABLET ONE (11:35)
[2018-06-14] MEDS ORDERED: METHOCARBAMOL 500 MG TABLET PO ONE (12:40)
--- NOTE | 2018-06-14 12:53 | PN ---
[facility] CIWA - CIWA Score Nausea/Vomitin-Mild Nausea/No Vomiting Muscle Tremors: 3 Anxiety: 3 Agitation: 2 Paroxysmal Sweats: 1-Minimal Palms Moist Orientation: 0-Oriented Tacttile Disturbances: 0-None Auditory Disturbances: 0-None Visual Disturbances: 0-None Headache: 0-None Present CIWA-Ar Total Score: 10 S Progress Note (SOAP) Subjective: back pain itchy feet dry eyes tremor sweat restlessness Objective: 06/14/18 12:50 Vital Signs Temperature 97.7 F 06/14/18 09:35 Pulse Rate 70 06/14/18 09:35 Respiratory Rate 20 06/14/18 09:35 Blood Pressure 158/99 06/14/18 09:35 O2 Sat by Pulse Oximetry (%) Laboratory Last Values WBC 3.2 K/mm3 (4.0-10.0) L 06/14/18 07:30 RBC 3.97 M/mm3 (4.00-5.60) L 06/14/18 07:30 Hgb 13.6 GM/dL (11.7-16.9) 06/14/18 07:30 Hct 38.5 % (35.4-49) 06/14/18 07:30 MCV 97.1 fl (80-96) H 06/14/18 07:30 MCH 34.4 pg (25.7-33.7) H 06/14/18 07:30 MCHC 35.4 g/dl (32.0-35.9) 06/14/18 07:30 RDW 14.1 % (11.9-15.9) 06/14/18 07:30 Plt Count 199 K/MM3 (134-434) 06/14/18 07:30 MPV 8.8 fl (7.5-11.1) 06/14/18 07:30 Sodium 139 mmol/L (136-145) 06/14/18 07:30 Potassium 3.9 mmol/L (3.5-5.1) 06/14/18 07:30 Chloride 100 mmol/L (98-107) 06/14/18 07:30 Carbon Dioxide 31 mmol/L (21-32) 06/14/18 07:30 Anion Gap 9 MMOL/L (8-16) 06/14/18 07:30 BUN 9 mg/dL (7-18) 06/14/18 07:30 Creatinine 0.7 mg/dL (0.55-1.3) 06/14/18 07:30 Creat Clearance w eGFR > 60 (>60) 06/14/18 07:30 Random Glucose 92 mg/dL (74-106) 06/14/18 07:30 Calcium 8.7 mg/dL (8.5-10.1) 06/14/18 07:30 Total Bilirubin 0.9 mg/dL (0.2-1) 06/14/18 07:30 AST 20 U/L (15-37) 06/14/18 07:30 ALT 20 U/L (13-61) 06/14/18 07:30 Alkaline Phosphatase 109 U/L (45-117) 06/14/18 07:30 Total Protein 6.4 g/dl (6.4-8.2) 06/14/18 07:30 Albumin 3.3 g/dl (3.4-5.0) L 06/14/18 07:30 Phenytoin 4.4 ug/ml (10.0-20.0) L 06/14/18 07:00 HIV 1&2 Antibody Screen Negative 06/14/18 07:30 HIV P24 Antigen Negative 06/14/18 07:30 lab noted Assessment: 06/14/18 12:53 withdrawal sx hypertension 06/14/18 13:11 seizure Plan: continue detox hypertension dilantin 300 mg x 1
[2018-06-14] MEDS ORDERED: PHENYTOIN NA EXTENDED 100 MG CAPSULE (FP) PO ONE (13:45)
[2018-06-14] MEDS: ARTIFICIAL TEARS (POLYVINYL ALCOHOL) OPTH DROPS OU SCH ×2 (14:33→22:30)
[2018-06-14] MEDS: amLODIPine BESYLATE 5 MG TABLET (FP) PO SCH (14:33)
[2018-06-14] MEDS ORDERED: chlordiazePOXIDE 5 MG CAPSULE PO PRN (21:19)
[2018-06-14] MEDS ORDERED: CLOTRIMAZOLE 1% VAGINAL CREAM WITH APPLICATOR 45 GM TUBE VG SCH (22:00)
[2018-06-14] MEDS: THIAMINE HCL 100 MG TABLET (FP) PO SCH (22:29)
[2018-06-14] MEDS: MINERAL OIL/PETROLAT/WATER TOPICAL CREAM 113 GM JAR TP SCH (22:30)
[2018-06-14] MEDS: MELATONIN 5 MG TABLETS PO PRN (22:42)
[2018-06-14] MEDS ORDERED: chlordiazePOXIDE HCL 25 MG CAPSULE PO SCH (23:00)
[2018-06-14] MEDS: CLOTRIMAZOLE 1% CREAM 15 GM TUBE TP SCH (23:46)
[2018-06-15] MEDS ORDERED: METHADONE HCL 5 MG TABLET ONE (05:29)
[2018-06-15] MEDS ORDERED: METHADONE HCL 40 MG DISPERSABLE TABLET ONE (05:30)
[2018-06-15] MEDS: METHADONE 40 MG, METHADONE 30 MG, METHADONE 5 MG PO SCH (05:31)
[2018-06-15] MEDS ORDERED: METHADONE HCL 10 MG TABLET ONE (05:31)
[2018-06-15] MEDS: PHENYTOIN NA EXTENDED 100 MG CAPSULE (FP) PO SCH ×3 (05:31→22:44)
[2018-06-15] MEDS: chlordiazePOXIDE 5 MG CAPSULE PO SCH ×4 (05:35→22:44)
[2018-06-15] MEDS ORDERED: METHADONE HCL 40 MG DISPERSABLE TABLET PO SCH (06:00)
[2018-06-15] MEDS: ARTIFICIAL TEARS (POLYVINYL ALCOHOL) OPTH DROPS OU SCH ×2 (10:30→22:54)
[2018-06-15] MEDS: IBUPROFEN 400 MG TABLET (FP) PO PRN ×2 (11:15→18:11)
[2018-06-15] MEDS: CLOTRIMAZOLE 1% CREAM 15 GM TUBE TP SCH ×2 (11:27→22:54)
[2018-06-15] MEDS: NICOTINE 14 MG/24 HOURS TOPICAL PATCH TD SCH (11:27)
[2018-06-15] MEDS: PRENATAL VITAMINS W/ FOLIC ACID TABLET (FP) PO SCH (11:28)
--- NOTE | 2018-06-15 11:31 | PN ---
S CIWA - CIWA Score Nausea/Vomitin-Mild Nausea/No Vomiting Muscle Tremors: 4-Moderate,w/Arms Extend Anxiety: 2 Agitation: 2 Paroxysmal Sweats: 1-Minimal Palms Moist Orientation: 0-Oriented Tacttile Disturbances: 0-None Auditory Disturbances: 0-None Visual Disturbances: 0-None Headache: 0-None Present CIWA-Ar Total Score: 10 [facility] Progress Note (SOAP) Subjective: ambulate with cane chronic back pain tremor sweat restlessness Objective: 06/15/18 11:33 Vital Signs Temperature 98.6 F 06/15/18 08:59 Pulse Rate 81 06/15/18 08:59 Respiratory Rate 16 06/15/18 08:59 Blood Pressure 137/82 06/15/18 08:59 O2 Sat by Pulse Oximetry (%) Laboratory Last Values WBC 3.2 K/mm3 (4.0-10.0) L 06/14/18 07:30 RBC 3.97 M/mm3 (4.00-5.60) L 06/14/18 07:30 Hgb 13.6 GM/dL (11.7-16.9) 06/14/18 07:30 Hct 38.5 % (35.4-49) 06/14/18 07:30 MCV 97.1 fl (80-96) H 06/14/18 07:30 MCH 34.4 pg (25.7-33.7) H 06/14/18 07:30 MCHC 35.4 g/dl (32.0-35.9) 06/14/18 07:30 RDW 14.1 % (11.9-15.9) 06/14/18 07:30 Plt Count 199 K/MM3 (134-434) 06/14/18 07:30 MPV 8.8 fl (7.5-11.1) 06/14/18 07:30 Sodium 139 mmol/L (136-145) 06/14/18 07:30 Potassium 3.9 mmol/L (3.5-5.1) 06/14/18 07:30 Chloride 100 mmol/L (98-107) 06/14/18 07:30 Carbon Dioxide 31 mmol/L (21-32) 06/14/18 07:30 Anion Gap 9 MMOL/L (8-16) 06/14/18 07:30 BUN 9 mg/dL (7-18) 06/14/18 07:30 Creatinine 0.7 mg/dL (0.55-1.3) 06/14/18 07:30 Creat Clearance w eGFR > 60 (>60) 06/14/18 07:30 Random Glucose 92 mg/dL (74-106) 06/14/18 07:30 Calcium 8.7 mg/dL (8.5-10.1) 06/14/18 07:30 Total Bilirubin 0.9 mg/dL (0.2-1) 06/14/18 07:30 AST 20 U/L (15-37) 06/14/18 07:30 ALT 20 U/L (13-61) 06/14/18 07:30 Alkaline Phosphatase 109 U/L (45-117) 06/14/18 07:30 Total Protein 6.4 g/dl (6.4-8.2) 06/14/18 07:30 Albumin 3.3 g/dl (3.4-5.0) L 06/14/18 07:30 Phenytoin 4.4 ug/ml (10.0-20.0) L 06/14/18 07:00 RPR Titer Nonreactive (NONREACTIVE) 06/14/18 07:30 HIV 1&2 Antibody Screen Negative 06/14/18 07:30 HIV P24 Antigen Negative 06/14/18 07:30 lab noted after loading dose dilantin level pending 06/15/18 11:34 Assessment: 06/15/18 11:34 withdrawal sx seizure Plan: continue detox
[2018-06-15] MEDS: amLODIPine BESYLATE 5 MG TABLET (FP) PO SCH (11:46)
[2018-06-15] MEDS ORDERED: LIDOCAINE 5% TOPICAL PATCH TP ONE (12:46)
--- NOTE | 2018-06-15 12:47 | PN ---
[facility] Progress Note Note: pt c/o of chronic pain and muscle spasms to lower back lidocaine patches, baclofen and motrin 800mg ordered
[2018-06-15] MEDS: BACLOFEN 10 MG TABLET (FP) PO SCH ×2 (15:00→22:44)
[2018-06-15] MEDS: MELATONIN 5 MG TABLETS PO PRN (22:44)
[2018-06-15] MEDS: THIAMINE HCL 100 MG TABLET (FP) PO SCH (22:44)
[2018-06-15] MEDS: LIDOCAINE PATCH REMOVAL MC SCH (22:54)
[2018-06-15] MEDS: MINERAL OIL/PETROLAT/WATER TOPICAL CREAM 113 GM JAR TP SCH (22:54)
[2018-06-16] MEDS ORDERED: METHADONE HCL 5 MG TABLET ONE (02:31)
[2018-06-16] MEDS ORDERED: METHADONE HCL 40 MG DISPERSABLE TABLET ONE (02:31)
[2018-06-16] MEDS ORDERED: METHADONE HCL 10 MG TABLET ONE (02:31)
[2018-06-16] MEDS: PHENYTOIN NA EXTENDED 100 MG CAPSULE (FP) PO SCH ×3 (05:57→22:13)
[2018-06-16] MEDS: chlordiazePOXIDE 5 MG CAPSULE PO SCH ×4 (05:57→22:13)
[2018-06-16] MEDS: BACLOFEN 10 MG TABLET (FP) PO SCH ×3 (05:57→22:12)
[2018-06-16] MEDS: IBUPROFEN 400 MG TABLET (FP) PO PRN ×2 (05:59→20:58)
[2018-06-16] MEDS: METHADONE 40 MG, METHADONE 30 MG, METHADONE 5 MG PO SCH (07:35)
[2018-06-16] MEDS: NICOTINE 14 MG/24 HOURS TOPICAL PATCH TD SCH (10:33)
[2018-06-16] MEDS: LIDOCAINE 5% TOPICAL PATCH TP SCH (10:34)
[2018-06-16] MEDS: PRENATAL VITAMINS W/ FOLIC ACID TABLET (FP) PO SCH (10:34)
[2018-06-16] MEDS: amLODIPine BESYLATE 5 MG TABLET (FP) PO SCH (10:34)
[2018-06-16] MEDS: CLOTRIMAZOLE 1% CREAM 15 GM TUBE TP SCH ×2 (10:34→22:15)
[2018-06-16] MEDS: ARTIFICIAL TEARS (POLYVINYL ALCOHOL) OPTH DROPS OU SCH ×2 (10:35→22:41)
--- NOTE | 2018-06-16 12:36 | PN ---
[facility] Progress Note (SOAP) Subjective: interrupted sleep,sweats, lbp and knee pains Objective: 06/16/18 12:35 Vital Signs Temperature 97.1 F L 06/16/18 11:19 Pulse Rate 76 06/16/18 11:19 Respiratory Rate 18 06/16/18 11:19 Blood Pressure 148/99 06/16/18 11:19 O2 Sat by Pulse Oximetry (%) Laboratory Tests 06/14/18 06/14/18 06/14/18 07:00 07:30 07:30 WBC 3.2 L RBC 3.97 L Hgb 13.6 Hct 38.5 MCV 97.1 H MCH 34.4 H MCHC 35.4 RDW 14.1 Plt Count 199 MPV 8.8 Sodium Potassium Chloride Carbon Dioxide Anion Gap BUN Creatinine Creat Clearance w eGFR Random Glucose Calcium Total Bilirubin AST ALT Alkaline Phosphatase Total Protein Albumin Phenytoin 4.4 L RPR Titer HIV 1&2 Antibody Screen Negative HIV P24 Antigen Negative 06/14/18 06/14/18 06/15/18 07:30 07:30 07:00 WBC RBC Hgb Hct MCV MCH MCHC RDW Plt Count MPV Sodium 139 Potassium 3.9 Chloride 100 Carbon Dioxide 31 Anion Gap 9 BUN 9 Creatinine 0.7 Creat Clearance w eGFR > 60 Random Glucose 92 Calcium 8.7 Total Bilirubin 0.9 AST 20 ALT 20 Alkaline Phosphatase 109 Total Protein 6.4 Albumin 3.3 L Phenytoin 9.8 L RPR Titer Nonreactive HIV 1&2 Antibody Screen HIV P24 Antigen 06/16/18 12:39 pt aox3 ambulating but slowly appearing in some discomfort Assessment: 06/16/18 12:40 withdrawal sx's Plan: cont detox increase fluids contmotrin and lidocaine
[2018-06-16] MEDS ORDERED: PHENYTOIN NA EXTENDED 100 MG CAPSULE (FP) PO ONE (13:00)
[2018-06-16] MEDS: MELATONIN 5 MG TABLETS PO PRN (22:12)
[2018-06-16] MEDS: THIAMINE HCL 100 MG TABLET (FP) PO SCH (22:12)
[2018-06-16] MEDS: MINERAL OIL/PETROLAT/WATER TOPICAL CREAM 113 GM JAR TP SCH (22:14)
[2018-06-16] MEDS: LIDOCAINE PATCH REMOVAL MC SCH (22:15)
[2018-06-17] MEDS ORDERED: METHADONE HCL 5 MG TABLET ONE (05:55)
[2018-06-17] MEDS ORDERED: METHADONE HCL 10 MG TABLET ONE (05:55)
[2018-06-17] MEDS ORDERED: METHADONE HCL 40 MG DISPERSABLE TABLET ONE (05:55)
[2018-06-17] MEDS: chlordiazePOXIDE 5 MG CAPSULE PO SCH ×3 (06:20→17:56)
[2018-06-17] MEDS: BACLOFEN 10 MG TABLET (FP) PO SCH ×3 (06:21→22:29)
[2018-06-17] MEDS: METHADONE 40 MG, METHADONE 30 MG, METHADONE 5 MG PO SCH (06:23)
[2018-06-17] MEDS ORDERED: cloNIDine HCL 0.1 MG TABLET PO ONE (06:58)
--- NOTE | 2018-06-17 06:58 | PN ---
[facility] Progress Note Note: Patient's blood pressure is B/P 158/108. Patient is asymptomatic Vital Signs Temperature 97.5 F L 06/17/18 06:40 Pulse Rate 88 06/17/18 06:40 Respiratory Rate 18 06/17/18 06:40 Blood Pressure 158/108 H 06/17/18 06:40 O2 Sat by Pulse Oximetry (%) Action: Clonidine 0.1mg 1 tablet oral daily
[2018-06-17] MEDS: PHENYTOIN NA EXTENDED 100 MG CAPSULE (FP) PO SCH ×3 (07:26→22:29)
[2018-06-17] MEDS: IBUPROFEN 400 MG TABLET (FP) PO PRN (07:43)
[2018-06-17] MEDS: PRENATAL VITAMINS W/ FOLIC ACID TABLET (FP) PO SCH (10:24)
[2018-06-17] MEDS: amLODIPine BESYLATE 5 MG TABLET (FP) PO SCH (10:24)
[2018-06-17] MEDS: CLOTRIMAZOLE 1% CREAM 15 GM TUBE TP SCH ×2 (10:25→22:30)
[2018-06-17] MEDS: ARTIFICIAL TEARS (POLYVINYL ALCOHOL) OPTH DROPS OU SCH ×2 (10:25→22:29)
[2018-06-17] MEDS: LIDOCAINE 5% TOPICAL PATCH TP SCH (10:27)
[2018-06-17] MEDS: NICOTINE 14 MG/24 HOURS TOPICAL PATCH TD SCH (10:27)
--- NOTE | 2018-06-17 14:52 | PN ---
[facility] Progress Note (SOAP) Subjective: Low back/ knee pain, interrupted sleep, malaise Objective: 06/17/18 14:52 Vital Signs 06/17/18 06/17/18 06/17/18 07:55 09:13 14:21 Temperature 98.2 F 98.2 F Pulse Rate 84 90 85 Respiratory 18 18 20 Rate Blood Pressure 144/103 H 122/96 144/96 Laboratory Last Values WBC 3.2 K/mm3 (4.0-10.0) L 06/14/18 07:30 RBC 3.97 M/mm3 (4.00-5.60) L 06/14/18 07:30 Hgb 13.6 GM/dL (11.7-16.9) 06/14/18 07:30 Hct 38.5 % (35.4-49) 06/14/18 07:30 MCV 97.1 fl (80-96) H 06/14/18 07:30 MCH 34.4 pg (25.7-33.7) H 06/14/18 07:30 MCHC 35.4 g/dl (32.0-35.9) 06/14/18 07:30 RDW 14.1 % (11.9-15.9) 06/14/18 07:30 Plt Count 199 K/MM3 (134-434) 06/14/18 07:30 MPV 8.8 fl (7.5-11.1) 06/14/18 07:30 Sodium 139 mmol/L (136-145) 06/14/18 07:30 Potassium 3.9 mmol/L (3.5-5.1) 06/14/18 07:30 Chloride 100 mmol/L (98-107) 06/14/18 07:30 Carbon Dioxide 31 mmol/L (21-32) 06/14/18 07:30 Anion Gap 9 MMOL/L (8-16) 06/14/18 07:30 BUN 9 mg/dL (7-18) 06/14/18 07:30 Creatinine 0.7 mg/dL (0.55-1.3) 06/14/18 07:30 Creat Clearance w eGFR > 60 (>60) 06/14/18 07:30 Random Glucose 92 mg/dL (74-106) 06/14/18 07:30 Calcium 8.7 mg/dL (8.5-10.1) 06/14/18 07:30 Total Bilirubin 0.9 mg/dL (0.2-1) 06/14/18 07:30 AST 20 U/L (15-37) 06/14/18 07:30 ALT 20 U/L (13-61) 06/14/18 07:30 Alkaline Phosphatase 109 U/L (45-117) 06/14/18 07:30 Total Protein 6.4 g/dl (6.4-8.2) 06/14/18 07:30 Albumin 3.3 g/dl (3.4-5.0) L 06/14/18 07:30 Phenytoin 9.8 ug/ml (10.0-20.0) L 06/15/18 07:00 RPR Titer Nonreactive (NONREACTIVE) 06/14/18 07:30 HIV 1&2 Antibody Screen Negative 06/14/18 07:30 HIV P24 Antigen Negative 06/14/18 07:30 Labs noted Assessment: 06/17/18 14:52 Withdrawal sx Plan: Continue detox
[2018-06-17] MEDS: THIAMINE HCL 100 MG TABLET (FP) PO SCH (22:28)
[2018-06-17] MEDS: LIDOCAINE PATCH REMOVAL MC SCH (22:30)
[2018-06-17] MEDS: MINERAL OIL/PETROLAT/WATER TOPICAL CREAM 113 GM JAR TP SCH (22:31)
[2018-06-17] MEDS: ACETAMINOPHEN 325 MG TABLET (FP) PO PRN (22:32)
[2018-06-18] MEDS ORDERED: cloNIDine HCL 0.1 MG TABLET PO ONE (00:52)
--- NOTE | 2018-06-18 01:01 | PN ---
[facility] Progress Note Note: Patient's blood pressure is B/P 161/114. Patient is asymptomatic Vital Signs Temperature 100.4 F H 06/17/18 22:59 Pulse Rate 84 06/17/18 22:59 Respiratory Rate 18 06/17/18 22:59 Blood Pressure 161/114 H 06/17/18 22:59 O2 Sat by Pulse Oximetry (%) Action: clonidine 0.1mg oral ordered.
[2018-06-18] MEDS: MELATONIN 5 MG TABLETS PO PRN (01:30)
[2018-06-18] MEDS: IBUPROFEN 400 MG TABLET (FP) PO PRN (02:24)
[2018-06-18] MEDS ORDERED: METHADONE HCL 5 MG TABLET ONE (05:05)
[2018-06-18] MEDS ORDERED: METHADONE HCL 10 MG TABLET ONE (05:05)
[2018-06-18] MEDS ORDERED: METHADONE HCL 40 MG DISPERSABLE TABLET ONE (05:05)
[2018-06-18] MEDS: METHADONE 40 MG, METHADONE 30 MG, METHADONE 5 MG PO SCH (06:24)
[2018-06-18] MEDS: BACLOFEN 10 MG TABLET (FP) PO SCH (06:24)
[2018-06-18] MEDS: PHENYTOIN NA EXTENDED 100 MG CAPSULE (FP) PO SCH (06:24)
[2018-06-18 09:45] VITALS: BP 121/79; PULSE 87; TEMP 98.2
[2018-06-18] MEDS: PRENATAL VITAMINS W/ FOLIC ACID TABLET (FP) PO SCH (09:59)
[2018-06-18] MEDS: ARTIFICIAL TEARS (POLYVINYL ALCOHOL) OPTH DROPS OU SCH (09:59)
[2018-06-18] MEDS: NICOTINE 14 MG/24 HOURS TOPICAL PATCH TD SCH (09:59)
[2018-06-18] MEDS: CLOTRIMAZOLE 1% CREAM 15 GM TUBE TP SCH (09:59)
[2018-06-18] MEDS: amLODIPine BESYLATE 5 MG TABLET (FP) PO SCH (09:59)
[2018-06-18] MEDS: LIDOCAINE 5% TOPICAL PATCH TP SCH (10:00)
--- NOTE | 2018-06-18 12:05 | DS ---
[facility] Detox Discharge Summary Admission Date: 06/13/18 Discharge Date: 06/18/18 - History Present History: Alcohol Dependence Additional Comments: 53 years old male admitted on 06/13/18 for alcohol withdrawal sx completed alcohol detox regimen tolerated well alert no acute distress aftercare [facility] - Physical Exam Results Vital Signs: Vital Signs Temperature 98.2 F 06/18/18 09:44 Pulse Rate 87 06/18/18 09:44 Respiratory Rate 16 06/18/18 09:44 Blood Pressure 121/79 06/18/18 09:44 O2 Sat by Pulse Oximetry (%) Pertinent Admission Physical Exam Findings: alcohol withdrawal sx Vital Signs Temperature 98.2 F 06/18/18 09:44 Pulse Rate 87 06/18/18 09:44 Respiratory Rate 16 06/18/18 09:44 Blood Pressure 121/79 06/18/18 09:44 O2 Sat by Pulse Oximetry (%) Laboratory Last Values WBC 3.2 K/mm3 (4.0-10.0) L 06/14/18 07:30 RBC 3.97 M/mm3 (4.00-5.60) L 06/14/18 07:30 Hgb 13.6 GM/dL (11.7-16.9) 06/14/18 07:30 Hct 38.5 % (35.4-49) 06/14/18 07:30 MCV 97.1 fl (80-96) H 06/14/18 07:30 MCH 34.4 pg (25.7-33.7) H 06/14/18 07:30 MCHC 35.4 g/dl (32.0-35.9) 06/14/18 07:30 RDW 14.1 % (11.9-15.9) 06/14/18 07:30 Plt Count 199 K/MM3 (134-434) 06/14/18 07:30 MPV 8.8 fl (7.5-11.1) 06/14/18 07:30 Sodium 139 mmol/L (136-145) 06/14/18 07:30 Potassium 3.9 mmol/L (3.5-5.1) 06/14/18 07:30 Chloride 100 mmol/L (98-107) 06/14/18 07:30 Carbon Dioxide 31 mmol/L (21-32) 06/14/18 07:30 Anion Gap 9 MMOL/L (8-16) 06/14/18 07:30 BUN 9 mg/dL (7-18) 06/14/18 07:30 Creatinine 0.7 mg/dL (0.55-1.3) 06/14/18 07:30 Creat Clearance w eGFR > 60 (>60) 06/14/18 07:30 Random Glucose 92 mg/dL (74-106) 06/14/18 07:30 Calcium 8.7 mg/dL (8.5-10.1) 06/14/18 07:30 Total Bilirubin 0.9 mg/dL (0.2-1) 06/14/18 07:30 AST 20 U/L (15-37) 06/14/18 07:30 ALT 20 U/L (13-61) 06/14/18 07:30 Alkaline Phosphatase 109 U/L (45-117) 06/14/18 07:30 Total Protein 6.4 g/dl (6.4-8.2) 06/14/18 07:30 Albumin 3.3 g/dl (3.4-5.0) L 06/14/18 07:30 Phenytoin 9.8 ug/ml (10.0-20.0) L 06/15/18 07:00 RPR Titer Nonreactive (NONREACTIVE) 06/14/18 07:30 HIV 1&2 Antibody Screen Negative 06/14/18 07:30 HIV P24 Antigen Negative 06/14/18 07:30 lab noted - Treatment Hospital Course: Detox Protocol Followed, Detoxed Safely, Responded well, Discharged Condition Good, Rehab Referral Accepted Patient has Accepted a [facility] Referral to: [facility] - Medication Discharge Medications: Ambulatory Orders Phenytoin Na Extended [Dilantin -] 100 mg PO TID 30 Days #90 capsule 10/11/17 Acetaminophen [Tylenol -] 500 mg PO Q6H 06/13/18 Ibuprofen [Motrin -] 400 mg PO TID 06/13/18 Methadone [Dolophine -] 75 mg PO DAILY@0600 MDD 70 06/13/18 Methocarbamol [Robaxin -] 500 mg PO QID 06/13/18 Terbinafine HCl [Lamisil At] 12 gm TP DAILY 06/13/18 Amlodipine Besylate [Norvasc -] 10 mg PO DAILY 06/14/18 - Diagnosis (1) Alcohol dependence with uncomplicated withdrawal Current Visit: Yes Status: Acute (2) Nicotine dependence Current Visit: Yes Status: Acute Qualifiers: Nicotine product type: cigarettes Substance use status: in withdrawal Qualified Code(s): F17.213 - Nicotine dependence, cigarettes, with withdrawal (3) Substance induced mood disorder Current Visit: Yes Status: Suspected (4) Epilepsy Current Visit: Yes Status: Chronic Qualifiers: Epilepsy type: unspecified Intractability: not intractable Status epilepticus: without status epilepticus Qualified Code(s): G40.909 - Epilepsy , unspecified, not intractable, without status epilepticus - AMA Did Patient Leave Against Medical Advice: No
[2018-06-18] MEDS ORDERED: amLODIPine BESYLATE 5 MG TABLET (FP) PO ONE (22:00)
== END 2018-06-18 12:20 | disposition other institution (70) | DRG 773 ==
LOC: YASAS 14:38 → Y6N 19:02
PROC: HZ2ZZZZ Detoxification Services for Substance Abuse Treatment (ICD-10-PCS; principal; 2018-06-13)
DX: F10.230 Alcohol dependence with withdrawal, uncomplicated (principal); F14.20 Cocaine dependence, uncomplicated; F11.20 Opioid dependence, uncomplicated; F17.210 Nicotine dependence, cigarettes, uncomplicated; F19.24 Other psychoactive substance dependence with psychoactive substance-induced mood disorder; I10 Essential (primary) hypertension; E78.00 Pure hypercholesterolemia, unspecified; G40.909 Epilepsy, unspecified, not intractable, without status epilepticus; M43.9 Deforming dorsopathy, unspecified; M54.5 Low back pain; M62.830 Muscle spasm of back; G89.29 Other chronic pain; M25.561 Pain in right knee; M25.562 Pain in left knee; H53.8 Other visual disturbances; R26.89 Other abnormalities of gait and mobility; Z99.89 Dependence on other enabling machines and devices
CPT/HCPCS: 36415; 80053; 80185; 85027; 86593; 87389; 94640; J0475; J0735

== ENCOUNTER 2018-06-18 12:39 | Inpatient (IN) | payer OTHER ==
--- NOTE | 2018-06-18 12:07 | HP ---
[facility] Rehab Assess/Revision - Admission History Admitted to Rehab from: [facility] Date of Admission to Rehab: 06/18/18 - Findings Detox History & Physical reviewed: Yes Concur with findings: Yes Comments/Additional Findings: transferred from detox to rehab admission as per protocol Inpatient Rehab Admission - Initial Determination Are CD services needed?: Yes Free of communicable disease: Yes Not in need of hospitalization: Yes - Rehab Admission Criteria Previous failed treatment: Yes Poor recovery environment: Yes Comorbidities: Yes Lacks judgement: No Patient is meeting Inpatient Rehab admission criteria:: Yes
[~2018-06-18 12:39] MED LIST: ACETAMINOPHEN 325 MG TABLET (FP) PO PRN; LOPERAMIDE HCL 2 MG CAPSULE PO PRN; MAG HYDROX/AL HYDROX/SIMETH 30 ML UNIT-DOSE CUP PO PRN; MAGNESIUM CITRATE 300 ML BOTTLE PO PRN; MAGNESIUM HYDROX 2400MG/30ML ORAL SUSPENSION 30 ML CUP PO PRN; MENTHOL/PHENOL 1 EACH UD MM PRN; NICOTINE 14 MG/24 HOURS TOPICAL PATCH TD PRN; NICOTINE POLACRILEX 2 MG GUM BUC PRN; P-EPHED 60MG/TRIPROLIDI 2.5MG TABLET PO PRN; guaiFENesin/D-METHORPHAN HB 10 ML UNIT-DOSE CUPS PO PRN
[2018-06-18 13:38] VITALS: BMI 21.5
[2018-06-18] MEDS: PHENYTOIN NA EXTENDED 100 MG CAPSULE (FP) PO SCH ×2 (14:00→21:38)
[2018-06-18] MEDS: THIAMINE HCL 100 MG TABLET (FP) PO SCH (21:38)
[2018-06-18] MEDS: IBUPROFEN 400 MG TABLET (FP) PO PRN (21:39)
[2018-06-18] MEDS: MELATONIN 5 MG TABLETS PO PRN (21:39)
[2018-06-19] MEDS ORDERED: METHADONE HCL 10 MG TABLET PO SCH (06:00)
[2018-06-19] MEDS ORDERED: METHADONE HCL 5 MG TABLET ONE (06:14)
[2018-06-19] MEDS ORDERED: METHADONE HCL 10 MG TABLET ONE (06:15)
[2018-06-19] MEDS ORDERED: METHADONE HCL 40 MG DISPERSABLE TABLET ONE (06:15)
[2018-06-19] MEDS: IBUPROFEN 400 MG TABLET (FP) PO PRN (06:16)
[2018-06-19] MEDS: METHADONE 40 MG, METHADONE 30 MG, METHADONE 5 MG PO SCH (06:16)
[2018-06-19] MEDS: PHENYTOIN NA EXTENDED 100 MG CAPSULE (FP) PO SCH ×4 (06:16→22:09)
[2018-06-19] MEDS ORDERED: cloNIDine HCL 0.1 MG TABLET PO ONE (07:03)
--- NOTE | 2018-06-19 07:05 | PN ---
S Progress Note Note: Patient's blood pressure is B/P 143/107. Patient is asymptomatic Vital Signs Temperature 98.4 F 06/19/18 06:57 Pulse Rate 95 H 06/19/18 06:57 Respiratory Rate 18 06/19/18 06:57 Blood Pressure 143/107 H 06/19/18 06:57 O2 Sat by Pulse Oximetry (%) Action: Clonidine 0.1mg 1 tablet oral ordered
[2018-06-19] MEDS: PRENATAL VITAMINS W/ FOLIC ACID TABLET (FP) PO SCH (10:03)
[2018-06-19] MEDS: amLODIPine BESYLATE 5 MG TABLET (FP) PO SCH (10:06)
--- NOTE | 2018-06-19 13:42 | PN ---
S Progress Note Note: PATIENT SEEN FOR C/O BACK PAIN, WAS TREATED WITH LIDOCAINE PATCH IN DETOX, REQUESTING MEDICATION TO BE CONTINUED IN REHAB. PATIENT IS ALERT AND ORIENTED X 3. IN NAD, SKIN WARM AND DRY, EXT FULL ROM, AMB WITH CANE. +LS SPINE TENDERNESS , NON-RADIATING. A/P LBP. WILL ORDER LIDOCAINE PATCH AND CONTINUE TO MONITOR CLINICALLY. ALL PREVIOUS MEDICATIONS FROM DETOX RESUMED. Vital Signs Temperature 98.4 F 06/19/18 06:57 Pulse Rate 95 H 06/19/18 06:57 Respiratory Rate 18 06/19/18 06:57 Blood Pressure 143/107 H 06/19/18 06:57 O2 Sat by Pulse Oximetry (%)
[2018-06-19] MEDS: LIDOCAINE 5% TOPICAL PATCH TP SCH (14:25)
[2018-06-19] MEDS: ARTIFICIAL TEARS (POLYVINYL ALCOHOL) OPTH DROPS OS SCH ×2 (14:56→21:39)
[2018-06-19] MEDS: THIAMINE HCL 100 MG TABLET (FP) PO SCH (21:37)
[2018-06-19] MEDS: IBUPROFEN 400 MG TABLET (FP) PO SCH (21:37)
[2018-06-19] MEDS: TOLNAFTATE 1% CREAM 15 GM TUBE TP SCH (21:39)
--- NOTE | 2018-06-19 21:47 | PN ---
[facility] Progress Note Note: Dilantin level noted to 5.8. Will increase dilantin from 300mg/day to 400mg/day.
[2018-06-19] MEDS: LIDOCAINE PATCH REMOVAL MC SCH (22:09)
[2018-06-20] MEDS ORDERED: METHADONE HCL 10 MG TABLET ONE (04:07)
[2018-06-20] MEDS ORDERED: METHADONE HCL 5 MG TABLET ONE (04:07)
[2018-06-20] MEDS ORDERED: METHADONE HCL 40 MG DISPERSABLE TABLET ONE (04:08)
[2018-06-20] MEDS: METHADONE 40 MG, METHADONE 30 MG, METHADONE 5 MG PO SCH (06:03)
[2018-06-20] MEDS: ARTIFICIAL TEARS (POLYVINYL ALCOHOL) OPTH DROPS OS SCH ×3 (06:05→22:11)
[2018-06-20] MEDS: IBUPROFEN 400 MG TABLET (FP) PO SCH ×2 (10:15→21:25)
[2018-06-20] MEDS: amLODIPine BESYLATE 5 MG TABLET (FP) PO SCH (10:16)
[2018-06-20] MEDS: TOLNAFTATE 1% CREAM 15 GM TUBE TP SCH ×2 (10:16→21:26)
[2018-06-20] MEDS: PRENATAL VITAMINS W/ FOLIC ACID TABLET (FP) PO SCH (10:16)
[2018-06-20] MEDS: LIDOCAINE 5% TOPICAL PATCH TP SCH (10:16)
[2018-06-20] MEDS: PHENYTOIN NA EXTENDED 100 MG CAPSULE (FP) PO SCH ×2 (10:16→21:38)
[2018-06-20] MEDS: THIAMINE HCL 100 MG TABLET (FP) PO SCH (21:25)
[2018-06-20] MEDS: MELATONIN 5 MG TABLETS PO PRN (21:25)
[2018-06-20] MEDS: LIDOCAINE PATCH REMOVAL MC SCH (22:28)
[2018-06-21] MEDS ORDERED: METHADONE HCL 10 MG TABLET ONE (03:24)
[2018-06-21] MEDS ORDERED: METHADONE HCL 5 MG TABLET ONE (03:24)
[2018-06-21] MEDS ORDERED: METHADONE HCL 40 MG DISPERSABLE TABLET ONE (03:25)
[2018-06-21] MEDS: ARTIFICIAL TEARS (POLYVINYL ALCOHOL) OPTH DROPS OS SCH ×3 (06:07→21:29)
[2018-06-21] MEDS: METHADONE 40 MG, METHADONE 30 MG, METHADONE 5 MG PO SCH (06:08)
[2018-06-21] MEDS: amLODIPine BESYLATE 5 MG TABLET (FP) PO SCH (10:13)
[2018-06-21] MEDS: PHENYTOIN NA EXTENDED 100 MG CAPSULE (FP) PO SCH ×2 (10:14→21:30)
[2018-06-21] MEDS: IBUPROFEN 400 MG TABLET (FP) PO SCH ×2 (10:14→21:30)
[2018-06-21] MEDS: PRENATAL VITAMINS W/ FOLIC ACID TABLET (FP) PO SCH (10:14)
[2018-06-21] MEDS: LIDOCAINE 5% TOPICAL PATCH TP SCH (10:14)
[2018-06-21] MEDS: TOLNAFTATE 1% CREAM 15 GM TUBE TP SCH ×2 (10:15→21:31)
--- NOTE | 2018-06-21 12:31 | PN ---
S Progress Note Note: PATIENT C/O TINGLING SENSATION TO TOES. STATES HE IS CONCERNED ABOUT HIS BLOOD SUGAR. FAMILY HX OF DM - UNSURE. PATIENT HAS FULL ROM, NO EDEMA OF FEET, AMB WITH CANE. WILL ORDER FASTING GLUCOSE AND CONTINUE TO MONITOR CLINICALLY.
[2018-06-21] MEDS: THIAMINE HCL 100 MG TABLET (FP) PO SCH (21:29)
[2018-06-21] MEDS: MELATONIN 5 MG TABLETS PO PRN (21:30)
[2018-06-21] MEDS: LIDOCAINE PATCH REMOVAL MC SCH (21:31)
[2018-06-22] MEDS ORDERED: METHADONE HCL 5 MG TABLET ONE (03:22)
[2018-06-22] MEDS ORDERED: METHADONE HCL 40 MG DISPERSABLE TABLET ONE (03:23)
[2018-06-22] MEDS ORDERED: METHADONE HCL 10 MG TABLET ONE (03:23)
[2018-06-22] MEDS: METHADONE 40 MG, METHADONE 30 MG, METHADONE 5 MG PO SCH (06:10)
[2018-06-22] MEDS: ARTIFICIAL TEARS (POLYVINYL ALCOHOL) OPTH DROPS OS SCH ×3 (06:10→22:24)
[2018-06-22] MEDS: PHENYTOIN NA EXTENDED 100 MG CAPSULE (FP) PO SCH ×2 (10:18→21:33)
[2018-06-22] MEDS: PRENATAL VITAMINS W/ FOLIC ACID TABLET (FP) PO SCH (10:18)
[2018-06-22] MEDS: amLODIPine BESYLATE 5 MG TABLET (FP) PO SCH (10:18)
[2018-06-22] MEDS: IBUPROFEN 400 MG TABLET (FP) PO SCH ×2 (10:20→21:33)
[2018-06-22] MEDS: LIDOCAINE 5% TOPICAL PATCH TP SCH (10:21)
[2018-06-22] MEDS: TOLNAFTATE 1% CREAM 15 GM TUBE TP SCH ×2 (10:21→22:24)
--- NOTE | 2018-06-22 12:22 | PN ---
[facility] Progress Note Note: FASTING GLUCOSE 148. PATIENT ENCOURAGED TO FOLLOW UP WITH PCP UPON D/C AND WILL MODIFY DIET TO NCS WHILE IN REHAB.
[2018-06-22] MEDS: MELATONIN 5 MG TABLETS PO PRN (21:33)
[2018-06-22] MEDS: THIAMINE HCL 100 MG TABLET (FP) PO SCH (21:33)
[2018-06-22] MEDS: LIDOCAINE PATCH REMOVAL MC SCH (22:24)
[2018-06-23] MEDS ORDERED: METHADONE HCL 5 MG TABLET ONE (04:02)
[2018-06-23] MEDS ORDERED: METHADONE HCL 40 MG DISPERSABLE TABLET ONE (04:02)
[2018-06-23] MEDS ORDERED: METHADONE HCL 10 MG TABLET ONE (04:02)
[2018-06-23] MEDS: ARTIFICIAL TEARS (POLYVINYL ALCOHOL) OPTH DROPS OS SCH ×3 (06:08→21:57)
[2018-06-23] MEDS: METHADONE 40 MG, METHADONE 30 MG, METHADONE 5 MG PO SCH (06:09)
--- NOTE | 2018-06-23 09:50 | HP ---
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 This is one of multiple admissions to rehab. Patient admitted to for alcohol dependence. Medical History: hypertension, hyperholesterolemia, Seizures (06/2017), right iguineal hernia, left wrist 1998 ORIF Psychiatric History: Patient denies h/o psychiatric hospitalization, outpatient psychiatric care and suicide attempt. Patient is currently on methadone maintanence 70mg at the [facility]. Physical/Sexual Abuse/Trauma History: denies. Vital Signs: Vital Signs - 24 hr 06/23/18 06/23/18 06/23/18 00:30 03:30 06:55 Temperature 99.1 F Pulse Rate 88 Respiratory 18 Rate Blood Pressure 132/88 Allergies/Adverse Reactions: Allergies Allergy/AdvReac Type Severity Reaction Status Date / Time No Known Allergies Allergy Verified 06/13/18 17:20 Date of last physical exam: 06/13/18 Concur with the findings of this exam: Yes - Substance Abuse/Tx History Hx Alcohol Use: Yes (Alcohol- "alot") Hx Substance Use: Yes (Marijuana- Varies on how much money he has) Substance Use Type: Marijuana Hx Substance Use Treatment: Yes ([facility]) Mental Status Exam - Mental Status Exam Alert and Oriented to: Time, Place, Person Cognitive Function: Good Patient Appearance: Well Groomed Mood: Euthymic Affect: Appropriate Patient Behavior: Talkative, Appropriate, Cooperative Speech Pattern: Appropriate Voice Loudness: Normal Thought Process: Intact, Goal Oriented Thought Disorder: Not Present Hallucinations: Denies Suicidal Ideation: Denies Homicidal Ideation: Denies Insight/Judgement: Poor Sleep: Fair Appetite: Fair Muscle strength/Tone: Normal Gait/Station: Other (Ambulates with a cane.) Psychiatric Findings - Problem List ([place] 1, 2,3) (1) Marijuana dependence Current Visit: No Status: Chronic (2) Alcohol dependence Current Visit: Yes Status: Acute (3) Nicotine dependence Current Visit: Yes Status: Chronic Qualifiers: Nicotine product type: cigarettes Substance use status: in withdrawal Qualified Code(s): F17.213 - Nicotine dependence, cigarettes, with withdrawal (4) Opioid dependence on agonist therapy Current Visit: Yes Status: Chronic - Initial Treatment Plan Initial Treatment Plan: Psychoeducation provided. Rehab in progress. Observation.
[2018-06-23] MEDS: LIDOCAINE 5% TOPICAL PATCH TP SCH (10:23)
[2018-06-23] MEDS: amLODIPine BESYLATE 5 MG TABLET (FP) PO SCH (10:24)
[2018-06-23] MEDS: PHENYTOIN NA EXTENDED 100 MG CAPSULE (FP) PO SCH ×2 (10:24→21:23)
[2018-06-23] MEDS: IBUPROFEN 400 MG TABLET (FP) PO SCH ×2 (10:24→21:23)
[2018-06-23] MEDS: PRENATAL VITAMINS W/ FOLIC ACID TABLET (FP) PO SCH (10:25)
[2018-06-23] MEDS: TOLNAFTATE 1% CREAM 15 GM TUBE TP SCH ×2 (10:26→21:57)
[2018-06-23] MEDS: THIAMINE HCL 100 MG TABLET (FP) PO SCH (21:23)
[2018-06-23] MEDS: MELATONIN 5 MG TABLETS PO PRN (21:24)
[2018-06-23] MEDS: LIDOCAINE PATCH REMOVAL MC SCH (21:56)
[2018-06-24] MEDS ORDERED: METHADONE HCL 5 MG TABLET ONE (03:06)
[2018-06-24] MEDS ORDERED: METHADONE HCL 10 MG TABLET ONE (03:06)
[2018-06-24] MEDS ORDERED: METHADONE HCL 40 MG DISPERSABLE TABLET ONE (03:06)
[2018-06-24] MEDS: METHADONE 40 MG, METHADONE 30 MG, METHADONE 5 MG PO SCH (06:01)
[2018-06-24] MEDS: ARTIFICIAL TEARS (POLYVINYL ALCOHOL) OPTH DROPS OS SCH ×3 (06:03→21:36)
[2018-06-24] MEDS: IBUPROFEN 400 MG TABLET (FP) PO SCH ×2 (10:12→21:32)
[2018-06-24] MEDS: amLODIPine BESYLATE 5 MG TABLET (FP) PO SCH (10:12)
[2018-06-24] MEDS: PRENATAL VITAMINS W/ FOLIC ACID TABLET (FP) PO SCH (10:12)
[2018-06-24] MEDS: LIDOCAINE 5% TOPICAL PATCH TP SCH (10:13)
[2018-06-24] MEDS: PHENYTOIN NA EXTENDED 100 MG CAPSULE (FP) PO SCH ×2 (10:13→21:38)
[2018-06-24] MEDS: TOLNAFTATE 1% CREAM 15 GM TUBE TP SCH ×2 (10:14→21:36)
[2018-06-24] MEDS: THIAMINE HCL 100 MG TABLET (FP) PO SCH (21:32)
[2018-06-24] MEDS: LIDOCAINE PATCH REMOVAL MC SCH (21:34)
[2018-06-24] MEDS: MELATONIN 5 MG TABLETS PO PRN (21:38)
[2018-06-25] MEDS ORDERED: METHADONE HCL 5 MG TABLET ONE (02:46)
[2018-06-25] MEDS ORDERED: METHADONE HCL 10 MG TABLET ONE (02:47)
[2018-06-25] MEDS ORDERED: METHADONE HCL 40 MG DISPERSABLE TABLET ONE (02:47)
[2018-06-25] MEDS: ARTIFICIAL TEARS (POLYVINYL ALCOHOL) OPTH DROPS OS SCH ×3 (05:53→21:39)
[2018-06-25] MEDS: METHADONE 40 MG, METHADONE 30 MG, METHADONE 5 MG PO SCH (05:53)
[2018-06-25] MEDS: IBUPROFEN 400 MG TABLET (FP) PO SCH ×2 (09:59→21:35)
[2018-06-25] MEDS: LIDOCAINE 5% TOPICAL PATCH TP SCH (10:00)
[2018-06-25] MEDS: amLODIPine BESYLATE 5 MG TABLET (FP) PO SCH (10:00)
[2018-06-25] MEDS: PHENYTOIN NA EXTENDED 100 MG CAPSULE (FP) PO SCH ×2 (10:00→21:36)
[2018-06-25] MEDS: PRENATAL VITAMINS W/ FOLIC ACID TABLET (FP) PO SCH (10:00)
[2018-06-25] MEDS: TOLNAFTATE 1% CREAM 15 GM TUBE TP SCH ×2 (10:01→21:39)
[2018-06-25] MEDS: THIAMINE HCL 100 MG TABLET (FP) PO SCH (21:35)
[2018-06-25] MEDS: MELATONIN 5 MG TABLETS PO PRN (21:37)
[2018-06-25] MEDS: LIDOCAINE PATCH REMOVAL MC SCH (21:38)
[2018-06-26] MEDS: ARTIFICIAL TEARS (POLYVINYL ALCOHOL) OPTH DROPS OS SCH ×3 (05:57→21:36)
[2018-06-26] MEDS ORDERED: METHADONE HCL 10 MG TABLET PO SCH (07:15)
[2018-06-26] MEDS ORDERED: METHADONE HCL 10 MG TABLET ONE (07:24)
[2018-06-26] MEDS ORDERED: METHADONE HCL 5 MG TABLET ONE (07:24)
[2018-06-26] MEDS ORDERED: METHADONE HCL 40 MG DISPERSABLE TABLET ONE (07:25)
[2018-06-26] MEDS: METHADONE 40 MG, METHADONE 30 MG, METHADONE 5 MG PO SCH (07:28)
[2018-06-26] MEDS: LIDOCAINE 5% TOPICAL PATCH TP SCH (10:14)
[2018-06-26] MEDS: PHENYTOIN NA EXTENDED 100 MG CAPSULE (FP) PO SCH ×2 (10:14→21:32)
[2018-06-26] MEDS: PRENATAL VITAMINS W/ FOLIC ACID TABLET (FP) PO SCH (10:14)
[2018-06-26] MEDS: amLODIPine BESYLATE 5 MG TABLET (FP) PO SCH (10:15)
[2018-06-26] MEDS: TOLNAFTATE 1% CREAM 15 GM TUBE TP SCH ×2 (10:16→21:36)
[2018-06-26] MEDS: IBUPROFEN 400 MG TABLET (FP) PO SCH ×2 (11:30→21:32)
[2018-06-26] MEDS: MELATONIN 5 MG TABLETS PO PRN (21:32)
[2018-06-26] MEDS: THIAMINE HCL 100 MG TABLET (FP) PO SCH (21:32)
[2018-06-26] MEDS: LIDOCAINE PATCH REMOVAL MC SCH (22:12)
[2018-06-27] MEDS ORDERED: METHADONE HCL 5 MG TABLET ONE (03:20)
[2018-06-27] MEDS ORDERED: METHADONE HCL 10 MG TABLET ONE (03:20)
[2018-06-27] MEDS ORDERED: METHADONE HCL 40 MG DISPERSABLE TABLET ONE (03:20)
[2018-06-27] MEDS: METHADONE 40 MG, METHADONE 30 MG, METHADONE 5 MG PO SCH (06:23)
[2018-06-27] MEDS: ARTIFICIAL TEARS (POLYVINYL ALCOHOL) OPTH DROPS OS SCH ×3 (06:23→22:10)
[2018-06-27] MEDS ORDERED: PT OWN MED DRAWER 7, Y5N ONE (08:38)
[2018-06-27] MEDS: PHENYTOIN NA EXTENDED 100 MG CAPSULE (FP) PO SCH ×2 (10:16→21:21)
[2018-06-27] MEDS: IBUPROFEN 400 MG TABLET (FP) PO SCH ×2 (10:16→21:21)
[2018-06-27] MEDS: LIDOCAINE 5% TOPICAL PATCH TP SCH (10:16)
[2018-06-27] MEDS: amLODIPine BESYLATE 5 MG TABLET (FP) PO SCH (10:17)
[2018-06-27] MEDS: PRENATAL VITAMINS W/ FOLIC ACID TABLET (FP) PO SCH (10:17)
[2018-06-27] MEDS: TOLNAFTATE 1% CREAM 15 GM TUBE TP SCH ×2 (10:18→22:10)
[2018-06-27] MEDS: THIAMINE HCL 100 MG TABLET (FP) PO SCH (21:21)
[2018-06-27] MEDS: MELATONIN 5 MG TABLETS PO PRN (21:22)
[2018-06-27] MEDS: LIDOCAINE PATCH REMOVAL MC SCH (22:10)
[2018-06-28] MEDS ORDERED: METHADONE HCL 5 MG TABLET ONE (05:09)
[2018-06-28] MEDS ORDERED: METHADONE HCL 10 MG TABLET ONE (05:10)
[2018-06-28] MEDS ORDERED: METHADONE HCL 40 MG DISPERSABLE TABLET ONE (05:10)
[2018-06-28] MEDS: ARTIFICIAL TEARS (POLYVINYL ALCOHOL) OPTH DROPS OS SCH ×3 (06:02→21:19)
[2018-06-28] MEDS: METHADONE 40 MG, METHADONE 30 MG, METHADONE 5 MG PO SCH (06:02)
[2018-06-28] MEDS: LIDOCAINE 5% TOPICAL PATCH TP SCH (10:35)
[2018-06-28] MEDS: IBUPROFEN 400 MG TABLET (FP) PO SCH ×2 (10:35→21:20)
[2018-06-28] MEDS: PHENYTOIN NA EXTENDED 100 MG CAPSULE (FP) PO SCH ×2 (10:36→21:20)
[2018-06-28] MEDS: amLODIPine BESYLATE 5 MG TABLET (FP) PO SCH (10:36)
[2018-06-28] MEDS: PRENATAL VITAMINS W/ FOLIC ACID TABLET (FP) PO SCH (10:36)
[2018-06-28] MEDS: TOLNAFTATE 1% CREAM 15 GM TUBE TP SCH ×2 (10:37→22:28)
[2018-06-28] MEDS: MELATONIN 5 MG TABLETS PO PRN (21:20)
[2018-06-28] MEDS: THIAMINE HCL 100 MG TABLET (FP) PO SCH (22:28)
[2018-06-28] MEDS: LIDOCAINE PATCH REMOVAL MC SCH (22:28)
[2018-06-29] MEDS ORDERED: METHADONE HCL 5 MG TABLET ONE (03:32)
[2018-06-29] MEDS ORDERED: METHADONE HCL 40 MG DISPERSABLE TABLET ONE (03:33)
[2018-06-29] MEDS ORDERED: METHADONE HCL 10 MG TABLET ONE (03:33)
[2018-06-29] MEDS: ARTIFICIAL TEARS (POLYVINYL ALCOHOL) OPTH DROPS OS SCH ×3 (06:12→21:27)
[2018-06-29] MEDS: METHADONE 40 MG, METHADONE 30 MG, METHADONE 5 MG PO SCH (06:12)
[2018-06-29] MEDS: amLODIPine BESYLATE 5 MG TABLET (FP) PO SCH (10:16)
[2018-06-29] MEDS: PRENATAL VITAMINS W/ FOLIC ACID TABLET (FP) PO SCH (10:16)
[2018-06-29] MEDS: LIDOCAINE 5% TOPICAL PATCH TP SCH (10:17)
[2018-06-29] MEDS: IBUPROFEN 400 MG TABLET (FP) PO SCH ×2 (10:17→21:25)
[2018-06-29] MEDS: PHENYTOIN NA EXTENDED 100 MG CAPSULE (FP) PO SCH ×2 (10:17→21:25)
[2018-06-29] MEDS: TOLNAFTATE 1% CREAM 15 GM TUBE TP SCH ×2 (10:17→21:27)
--- NOTE | 2018-06-29 10:40 | PN ---
Psychiatric Progress Note Vital Signs: Vital Signs Period Temp Pulse Resp BP Sys/Mathis Pulse Ox Last 24 Hr 98.9 F 78 18-18 138/83 Date of Session: 06/29/18 Chief Complaint:: Discharge Note HPI: Patient addressing Alcohol and Cannabis Dependence comorbid with Opioid Dependence on Agonist Therapy and Nicotine Dependence ROS: HTN, HLD, Seizure Current Medications: Active Medications Generic Name Dose Route Start Last Admin Trade Name Freq PRN Reason Stop Dose Admin Acetaminophen 650 mg 06/18/18 12:08 Tylenol - PO Q4H PRN FEVER Al Hydroxide/Mg Hydroxide 30 ml 06/18/18 12:08 Mylanta Oral Suspension - PO Q6H PRN DYSPEPSIA Amlodipine Besylate 10 mg 06/19/18 10:00 06/29/18 10:16 Norvasc - PO 10 mg DAILY DEVIN Administration Artificial Tears 1 drop 06/19/18 14:00 06/29/18 06:12 Artificial Tears OS 1 drop TID DEVIN Administration Eucalyptus/Menthol/Phenol/Sorbitol 1 each 06/18/18 12:08 Cepastat Lozenge - MM Q4H PRN SORE THROAT Guaifenesin 10 ml 06/18/18 12:08 Robitussin Dm - PO Q6H PRN COUGH Ibuprofen 800 mg 06/19/18 22:00 06/29/18 10:17 Motrin - PO 800 mg BID DEVIN Administration Lidocaine 1 patch 06/19/18 14:00 06/29/18 10:17 Lidoderm Patch - TP 1 patch DAILY DEVIN Administration Loperamide HCl 4 mg 06/18/18 12:08 Imodium - PO Q6H PRN DIARRHEA Magnesium Citrate 300 ml 06/18/18 12:08 Citroma - PO Q48H PRN CONSTIPATION Magnesium Hydroxide 30 ml 06/18/18 12:08 Milk Of Magnesia - PO DAILY PRN CONSTIPATION Melatonin 5 mg 06/18/18 22:00 06/28/18 21:20 Melatonin PO 5 mg HS PRN Administration INSOMNIA Methadone HCl 40 mg/ Methadone 75 mg 06/26/18 07:30 06/29/18 06:12 HCl 30 mg/ Methadone HCl 5 mg PO 75 mg DAILY@0600 DEVIN Administration Miscellaneous 1 each 06/19/18 22:00 06/28/18 22:28 Lidoderm Patch Removal MC 1 each DAILY@2200 DEVIN Administration Nicotine 14 mg 06/18/18 12:08 Nicoderm Patch - TD DAILY PRN WITHDRAWAL(CONT SUBST) Nicotine Polacrilex 2 mg 06/18/18 12:08 Nicorette Gum - BUC Q2H PRN NICOTINE REPLACEMENT RX Phenytoin Sodium 200 mg 06/19/18 22:00 06/29/18 10:17 Dilantin - PO 200 mg BID DEVIN Administration Multivit/Folic Acid/Iron 1 tab 06/19/18 10:00 06/29/18 10:16 Vitamins (Sjr) - PO 1 tab DAILY DEVIN Administration Pseudoephedrine/Triprolidine 1 combo 06/18/18 12:08 Actifed - PO TID PRN NASAL CONGESTION Thiamine HCl 100 mg 06/18/18 22:00 06/28/18 22:28 Vitamin B1 - PO 100 mg HS DEVIN Administration Tolnaftate 1 applic 06/19/18 22:00 06/29/18 10:17 Tinactin 1% Cream - TP 1 applic BID DEVIN Administration Current Side Effect: No Lab tests ordered: Yes Lab tests reviewed: Yes Provider note:: Patient will complete this program on 06/30/18. He has met his treatment goals and will continue to address his issues in [facility] at [facility]. Told television writer that fro his participation in this program, he has learned the consequences of not addressing his medical issues on account of his addiction. He is stable for discharge on 06/30/18 Total face to face time:: 35 Mental Status Exam - Mental Status Exam Alert and Oriented to: Time, Place, Person Cognitive Function: Fair Patient Appearance: Well Groomed Mood: Hopeful, Euthymic Affect: Appropriate Patient Behavior: Cooperative Speech Pattern: Clear Voice Loudness: Normal Thought Process: Intact Thought Disorder: Not Present Hallucinations: Denies Suicidal Ideation: Denies Homicidal Ideation: Denies Insight/Judgement: Fair Sleep: Fair Appetite: Good Muscle strength/Tone: Normal Gait/Station: Other (Uses a cane as ambulatory aid) Psychiatric Treatment Plan - Problem List (1) Cannabis dependence Current Visit: Yes (2) Alcohol dependence Current Visit: Yes (3) Opioid dependence on agonist therapy Current Visit: Yes (4) Nicotine dependence Current Visit: Yes Qualifiers: Nicotine product type: cigarettes Substance use status: in withdrawal Qualified Code(s): F17.213 - Nicotine dependence, cigarettes, with withdrawal (5) Epilepsy Current Visit: No Qualifiers: Epilepsy type: unspecified Intractability: not intractable Status epilepticus: without status epilepticus Qualified Code(s): G40.909 - Epilepsy , unspecified, not intractable, without status epilepticus (6) HTN (hypertension) Current Visit: Yes (7) HLD (hyperlipidemia) Current Visit: Yes Initial treatment plan: Patient will be discharged tomorrow and referred to [facility] for [facility]
[2018-06-29] MEDS: THIAMINE HCL 100 MG TABLET (FP) PO SCH (21:25)
[2018-06-29] MEDS: MELATONIN 5 MG TABLETS PO PRN (21:26)
[2018-06-29] MEDS: LIDOCAINE PATCH REMOVAL MC SCH (21:26)
[2018-06-30] MEDS ORDERED: METHADONE HCL 5 MG TABLET ONE (05:47)
[2018-06-30] MEDS ORDERED: METHADONE HCL 10 MG TABLET ONE (05:47)
[2018-06-30] MEDS ORDERED: METHADONE HCL 40 MG DISPERSABLE TABLET ONE (05:47)
[2018-06-30] MEDS: METHADONE 40 MG, METHADONE 30 MG, METHADONE 5 MG PO SCH (06:14)
[2018-06-30] MEDS: ARTIFICIAL TEARS (POLYVINYL ALCOHOL) OPTH DROPS OS SCH (06:15)
[2018-06-30 07:02] VITALS: BP 137/77; PULSE 90; TEMP 99.5
--- NOTE | 2018-06-30 15:34 | PN ---
BHS Progress Note Note: REHAB COMPLETED. PT REPORTS HE HAS PCP FOR MEDICAL MANAGEMENT. REFERRED TO [facility] FOR AFTERCARE TREATMENT. Vital Signs - 24 hr 06/30/18 06/30/18 06/30/18 00:30 03:30 07:02 Temperature 99.5 F Pulse Rate 90 Respiratory 16 18 16 Rate Blood Pressure 137/77 NAD FOLLOW UP WITH PCP AND AFTERCARE RECOMMENDATION
== END 2018-06-30 08:32 | disposition home or self-care (01) | DRG 772 ==
LOC: YASAS 12:39 → Y5N 12:40
PROVIDERS: ADMIT Psychiatry & Neurology Psychiatry; ATTEND Psychiatry & Neurology Psychiatry
PROC: HZ42ZZZ Group Counseling for Substance Abuse Treatment, Cognitive-Behavioral (ICD-10-PCS; principal; 2018-06-18)
DX: F10.20 Alcohol dependence, uncomplicated (principal); F11.20 Opioid dependence, uncomplicated; F12.20 Cannabis dependence, uncomplicated; F17.213 Nicotine dependence, cigarettes, with withdrawal; I10 Essential (primary) hypertension; G40.909 Epilepsy, unspecified, not intractable, without status epilepticus; E78.5 Hyperlipidemia, unspecified; M54.5 Low back pain; M79.674 Pain in right toe(s); M79.675 Pain in left toe(s)
CPT/HCPCS: 36415; 80185; 82947; 82962; J0735

== ENCOUNTER 2018-08-29 17:42 | Inpatient (IN) | payer OTHER ==
[2018-08-29 18:41] VITALS: BMI 22.9
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
[2018-08-29] MEDS ORDERED: MAG HYDROX/AL HYDROX/SIMETH 30 ML UNIT-DOSE CUP PO PRN (19:28)
[2018-08-29] MEDS ORDERED: P-EPHED 60MG/TRIPROLIDI 2.5MG TABLET PO PRN (19:28)
[2018-08-29] MEDS ORDERED: MAGNESIUM HYDROX 2400MG/30ML ORAL SUSPENSION 30 ML CUP PO PRN (19:28)
[2018-08-29] MEDS ORDERED: chlordiazePOXIDE HCL 25 MG CAPSULE PO PRN (19:28)
[2018-08-29] MEDS ORDERED: ACETAMINOPHEN 325 MG TABLET (FP) PO PRN (19:28)
[2018-08-29] MEDS ORDERED: LOPERAMIDE HCL 2 MG CAPSULE PO PRN (19:28)
[2018-08-29] MEDS ORDERED: guaiFENesin/D-METHORPHAN HB 10 ML UNIT-DOSE CUPS PO PRN (19:28)
[2018-08-29] MEDS ORDERED: hydrOXYzine PAMOATE 25 MG CAPSULE (FP) PO PRN (19:28)
[2018-08-29] MEDS ORDERED: MENTHOL/PHENOL 1 EACH UD MM PRN (19:28)
[2018-08-29] MEDS ORDERED: NICOTINE POLACRILEX 2 MG GUM BC PRN (19:28)
[2018-08-29] MEDS ORDERED: MAGNESIUM CITRATE 300 ML BOTTLE PO PRN (19:28)
[2018-08-29] MEDS ORDERED: MELATONIN 5 MG TABLETS PO PRN (22:00)
[2018-08-30] MEDS: chlordiazePOXIDE HCL 25 MG CAPSULE PO SCH ×5 (02:29→22:43)
[2018-08-30] MEDS: PHENYTOIN NA EXTENDED 100 MG CAPSULE (FP) PO SCH ×4 (05:26→22:42)
[2018-08-30] MEDS: THIAMINE HCL 100 MG TABLET (FP) PO SCH ×2 (05:27→22:43)
[2018-08-30] MEDS ORDERED: METHADONE HCL 10 MG TABLET PO ONE (08:36)
[2018-08-30] MEDS ORDERED: METHADONE 40 MG, METHADONE 30 MG, METHADONE 5 MG PO ONE (09:45)
[2018-08-30] MEDS ORDERED: METHADONE HCL 40 MG DISPERSABLE TABLET ONE (10:10)
[2018-08-30] MEDS ORDERED: METHADONE HCL 5 MG TABLET ONE (10:10)
[2018-08-30] MEDS ORDERED: METHADONE HCL 10 MG TABLET ONE (10:10)
[2018-08-30 10:59] LABS: HEMATOCRIT 38.6 % (35.4-49); HEMOGLOBIN 13.3 GM/dL (11.7-16.9); MCHC 34.4 g/dl (32.0-35.9); MEAN CELL VOLUME 95.8 fl (80-96); MEAN PLT VOLUME 8.3 fl (7.5-11.1); PLATELET COUNT 218 K/MM3 (134-434); RBC 4.03 M/mm3 (4.00-5.60); RDW 14.2 % (11.9-15.9); WHITE BLOOD COUNT 2.4 K/mm3 (4.0-10.0)
[2018-08-30] MEDS: PRENATAL VITAMINS W/ FOLIC ACID TABLET (FP) PO SCH (11:02)
[2018-08-30] MEDS: NICOTINE 14 MG/24 HOURS TOPICAL PATCH TD SCH (11:06)
[2018-08-30 11:14] LABS: ALBUMIN 3.5 g/dl (3.4-5.0); ALK PHOS 101 U/L (45-117); ANION GAP 8 MMOL/L (8-16); BILIRUBIN,TOTAL 0.8 mg/dL (0.2-1); BLOOD UREA NITROGEN 10 mg/dL (7-18); CALCIUM 8.9 mg/dL (8.5-10.1); CHLORIDE 102 mmol/L (98-107); CO2 28 mmol/L (21-32); CREATININE 0.8 mg/dL (0.55-1.3); GLUCOSE,RANDOM 93 mg/dL (74-106); POTASSIUM 3.8 mmol/L (3.5-5.1); SGOT/AST 40 U/L (15-37); SGPT/ALT 30 U/L (13-61); SODIUM 138 mmol/L (136-145); TOT PROT 6.5 g/dl (6.4-8.2)
--- NOTE | 2018-08-30 11:53 | PN ---
[facility] CIWA - CIWA Score Nausea/Vomitin-No Nausea/No Vomiting Muscle Tremors: 1-None Visible, but Russell Anxiety: 0-No Anxiety, at Ease Agitation: 1-Slight > Activity Paroxysmal Sweats: No Perspiration Orientation: 0-Oriented Tacttile Disturbances: 0-None Auditory Disturbances: 0-None Visual Disturbances: 0-None Headache: 0-None Present CIWA-Ar Total Score: 2 BHS Progress Note (SOAP) Subjective: pt was admitted yesterday for alcohol detox. Pt states doing well with librium detox protocol O: Vital Signs - 24 hr 08/29/18 08/30/18 08/30/18 18:39 03:32 06:11 Temperature 98.4 F 98.9 F Pulse Rate 93 H 90 Respiratory 18 18 18 Rate Blood Pressure 152/93 159/98 08/30/18 09:14 Temperature 98.2 F Pulse Rate 93 H Respiratory 18 Rate Blood Pressure 132/88 Laboratory Tests 08/30/18 08/30/18 08/30/18 08:00 08:00 08:00 WBC 2.4 L RBC 4.03 Hgb 13.3 Hct 38.6 MCV 95.8 MCH 33.0 MCHC 34.4 RDW 14.2 Plt Count 218 MPV 8.3 Sodium 138 Potassium 3.8 Chloride 102 Carbon Dioxide 28 Anion Gap 8 BUN 10 Creatinine 0.8 Creat Clearance w eGFR > 60 Random Glucose 93 Calcium 8.9 Total Bilirubin 0.8 AST 40 H ALT 30 Alkaline Phosphatase 101 Total Protein 6.5 Albumin 3.5 Phenytoin 4.3 L RPR Titer 08/30/18 08:00 WBC RBC Hgb Hct MCV MCH MCHC RDW Plt Count MPV Sodium Potassium Chloride Carbon Dioxide Anion Gap BUN Creatinine Creat Clearance w eGFR Random Glucose Calcium Total Bilirubin AST ALT Alkaline Phosphatase Total Protein Albumin Phenytoin RPR Titer Nonreactive a/p: continue alcohol detox protocol- pt stable
[2018-08-30] MEDS: IBUPROFEN 400 MG TABLET (FP) PO PRN ×2 (12:42→22:43)
[2018-08-31] MEDS ORDERED: METHADONE HCL 5 MG TABLET ONE (04:57)
[2018-08-31] MEDS ORDERED: METHADONE HCL 40 MG DISPERSABLE TABLET ONE (04:58)
[2018-08-31] MEDS ORDERED: METHADONE HCL 10 MG TABLET ONE (04:59)
[2018-08-31] MEDS: chlordiazePOXIDE HCL 25 MG CAPSULE PO SCH ×3 (05:21→18:17)
[2018-08-31] MEDS: METHADONE 40 MG, METHADONE 30 MG, METHADONE 5 MG PO SCH (05:21)
[2018-08-31] MEDS: PHENYTOIN NA EXTENDED 100 MG CAPSULE (FP) PO SCH ×3 (05:22→22:50)
[2018-08-31] MEDS ORDERED: METHADONE HCL 40 MG DISPERSABLE TABLET PO SCH (06:00)
[2018-08-31] MEDS: NICOTINE 14 MG/24 HOURS TOPICAL PATCH TD SCH (10:44)
[2018-08-31] MEDS: PRENATAL VITAMINS W/ FOLIC ACID TABLET (FP) PO SCH (10:44)
[2018-08-31] MEDS: TOLNAFTATE 1% CREAM 15 GM TUBE TP SCH ×2 (12:00→22:52)
[2018-08-31] MEDS: AMMONIUM LACTATE 12% LOTION 225 GM BOTTLE TP SCH ×2 (14:00→22:51)
--- NOTE | 2018-08-31 14:39 | PN ---
[facility] CIWA - CIWA Score Nausea/Vomitin-No Nausea/No Vomiting Muscle Tremors: 3 Anxiety: 3 Agitation: 0-Normal Activity Paroxysmal Sweats: No Perspiration Orientation: 0-Oriented Tacttile Disturbances: 3-Moderate Itch/Numb/Burn Auditory Disturbances: 2-Mild Harshness/Frighten Visual Disturbances: 1-Very Mild Sensitivity Headache: 0-None Present CIWA-Ar Total Score: 12 BHS Progress Note (SOAP) Subjective: Tremors, Body Aches, Interrupted Sleep. Objective: PATIENT A & O X 3, OBSERVED AMBULATING ON UNIT. IN NO ACUTE DISTRESS. 08/31/18 14:41 Vital Signs Temperature 98.2 F 08/31/18 09:18 Pulse Rate 97 H 08/31/18 09:18 Respiratory Rate 18 08/31/18 09:18 Blood Pressure 125/87 08/31/18 09:18 O2 Sat by Pulse Oximetry (%) Laboratory Tests 08/30/18 08/30/18 08/30/18 08:00 08:00 08:00 WBC 2.4 L RBC 4.03 Hgb 13.3 Hct 38.6 MCV 95.8 MCH 33.0 MCHC 34.4 RDW 14.2 Plt Count 218 MPV 8.3 Sodium 138 Potassium 3.8 Chloride 102 Carbon Dioxide 28 Anion Gap 8 BUN 10 Creatinine 0.8 Creat Clearance w eGFR > 60 Random Glucose 93 Calcium 8.9 Total Bilirubin 0.8 AST 40 H ALT 30 Alkaline Phosphatase 101 Total Protein 6.5 Albumin 3.5 Phenytoin 4.3 L RPR Titer 08/30/18 08:00 WBC RBC Hgb Hct MCV MCH MCHC RDW Plt Count MPV Sodium Potassium Chloride Carbon Dioxide Anion Gap BUN Creatinine Creat Clearance w eGFR Random Glucose Calcium Total Bilirubin AST ALT Alkaline Phosphatase Total Protein Albumin Phenytoin RPR Titer Nonreactive LABS NOTED. PATIENT HAS HAD LOW WBC LEVELS ON PREVIOUS ADMISSIONS. 08/31/18 14:42 Assessment: 08/31/18 14:41 WITHDRAWAL SYMPTOMS. LEUKOPENIA. 08/31/18 14:43 Plan: CONTINUE DETOX.
[2018-08-31] MEDS: THIAMINE HCL 100 MG TABLET (FP) PO SCH (22:50)
[2018-08-31] MEDS: chlordiazePOXIDE 5 MG CAPSULE PO SCH (22:50)
[2018-08-31] MEDS: IBUPROFEN 400 MG TABLET (FP) PO PRN (22:54)
[2018-09-01] MEDS ORDERED: METHADONE HCL 40 MG DISPERSABLE TABLET ONE (04:35)
[2018-09-01] MEDS ORDERED: METHADONE HCL 5 MG TABLET ONE (04:35)
[2018-09-01] MEDS ORDERED: METHADONE HCL 10 MG TABLET ONE (04:36)
[2018-09-01] MEDS: PHENYTOIN NA EXTENDED 100 MG CAPSULE (FP) PO SCH ×4 (05:14→23:01)
[2018-09-01] MEDS: chlordiazePOXIDE 5 MG CAPSULE PO SCH ×3 (05:14→17:25)
[2018-09-01] MEDS: METHADONE 40 MG, METHADONE 30 MG, METHADONE 5 MG PO SCH (05:14)
[2018-09-01] MEDS: PRENATAL VITAMINS W/ FOLIC ACID TABLET (FP) PO SCH (10:41)
[2018-09-01] MEDS: TOLNAFTATE 1% CREAM 15 GM TUBE TP SCH ×2 (10:42→23:02)
[2018-09-01] MEDS: NICOTINE 14 MG/24 HOURS TOPICAL PATCH TD SCH (10:44)
[2018-09-01] MEDS: AMMONIUM LACTATE 12% LOTION 225 GM BOTTLE TP SCH ×2 (10:45→23:01)
--- NOTE | 2018-09-01 12:14 | PN ---
BHS Progress Note (SOAP) Subjective: interrupted sleep, sweats, left bunion pain left ribs pain Objective: 09/01/18 12:09 Vital Signs Temp 97.0 F L 09/01/18 08:49 Pulse 94 H 09/01/18 08:49 Resp 18 09/01/18 08:49 BP 148/103 H 09/01/18 08:49 Pulse Ox Intake & Output 08/31/18 09/01/18 09/01/18 23:59 11:59 23:59 Other: Voiding Method Toilet Laboratory Tests 08/30/18 08/30/18 08/30/18 08:00 08:00 08:00 WBC 2.4 L RBC 4.03 Hgb 13.3 Hct 38.6 MCV 95.8 MCH 33.0 MCHC 34.4 RDW 14.2 Plt Count 218 MPV 8.3 Sodium 138 Potassium 3.8 Chloride 102 Carbon Dioxide 28 Anion Gap 8 BUN 10 Creatinine 0.8 Creat Clearance w eGFR > 60 Random Glucose 93 Calcium 8.9 Total Bilirubin 0.8 AST 40 H ALT 30 Alkaline Phosphatase 101 Total Protein 6.5 Albumin 3.5 Phenytoin 4.3 L RPR Titer 08/30/18 08:00 WBC RBC Hgb Hct MCV MCH MCHC RDW Plt Count MPV Sodium Potassium Chloride Carbon Dioxide Anion Gap BUN Creatinine Creat Clearance w eGFR Random Glucose Calcium Total Bilirubin AST ALT Alkaline Phosphatase Total Protein Albumin Phenytoin RPR Titer Nonreactive pt aox3 in nad lying in bed , no reported SZ Assessment: 09/01/18 12:13 withdrawal sx's sz d/o left bunion painful Plan: cont.detox increase fluids lidocaine patch dilantin 500mg dilantin level in am
[2018-09-01] MEDS ORDERED: LIDOCAINE 5% TOPICAL PATCH TP ONE (13:15)
[2018-09-01] MEDS: PHENYTOIN NA EXTENDED 100 MG CAPSULE (FP) PO ONE ×2 (15:05)
[2018-09-01] MEDS: IBUPROFEN 400 MG TABLET (FP) PO PRN (17:28)
[2018-09-01] MEDS ORDERED: LIDOCAINE PATCH REMOVAL MC SCH ×3 (22:00)
[2018-09-01] MEDS: THIAMINE HCL 100 MG TABLET (FP) PO SCH (23:01)
[2018-09-01] MEDS: chlordiazePOXIDE HCL 10 MG CAPSULE PO SCH (23:02)
[2018-09-02] MEDS ORDERED: METHADONE HCL 40 MG DISPERSABLE TABLET ONE (05:35)
[2018-09-02] MEDS ORDERED: METHADONE HCL 5 MG TABLET ONE (05:35)
[2018-09-02] MEDS ORDERED: METHADONE HCL 10 MG TABLET ONE (05:35)
[2018-09-02] MEDS: METHADONE 40 MG, METHADONE 30 MG, METHADONE 5 MG PO SCH (05:47)
[2018-09-02] MEDS: chlordiazePOXIDE HCL 10 MG CAPSULE PO SCH (05:47)
[2018-09-02] MEDS: PHENYTOIN NA EXTENDED 100 MG CAPSULE (FP) PO SCH (05:47)
[2018-09-02 06:34] VITALS: BP 136/83; PULSE 84; TEMP 97.9
[2018-09-02] MEDS ORDERED: LIDOCAINE 5% TOPICAL PATCH TP SCH (10:00)
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
== END 2018-09-02 09:12 | disposition home or self-care (01) | DRG 773 ==
LOC: YASAS 17:42 → Y6N 23:00
PROVIDERS: ADMIT Surgery; ATTEND Surgery
PROC: HZ2ZZZZ Detoxification Services for Substance Abuse Treatment (ICD-10-PCS; principal; 2018-08-29)
DX: F10.230 Alcohol dependence with withdrawal, uncomplicated (principal); F11.20 Opioid dependence, uncomplicated; F12.20 Cannabis dependence, uncomplicated; F17.213 Nicotine dependence, cigarettes, with withdrawal; I10 Essential (primary) hypertension; E78.5 Hyperlipidemia, unspecified; G62.9 Polyneuropathy, unspecified; M19.90 Unspecified osteoarthritis, unspecified site; M95.9 Acquired deformity of musculoskeletal system, unspecified; G40.909 Epilepsy, unspecified, not intractable, without status epilepticus; M21.612 Bunion of left foot; D72.819 Decreased white blood cell count, unspecified
CPT/HCPCS: 36415; 80053; 80185; 85027; 86593

== ENCOUNTER 2019-07-31 14:47 | Inpatient (IN) | payer OTHER ==
[2019-07-31 17:06] VITALS: BMI 20.6
--- NOTE | 2019-07-31 20:58 | HP ---
CIWA Score Nausea/Vomitin Muscle Tremors: 3 Anxiety: 3 Agitation: 2 Paroxysmal Sweats: 2 Orientation: 0-Oriented Tacttile Disturbances: 0-None Auditory Disturbances: 0-None Visual Disturbances: 0-None Headache: 3-Moderate CIWA-Ar Total Score: 15 - Admission Criteria OASAS Guidelines: Admission for Medically Managed Detox: Requires at least one of the followin. CIWA greater than 12 2. Seizures within the past 24 hours 3. Delirium tremens within the past 24 hours 4. Hallucinations within the past 24 hours 5. Acute intervention needed for co occurring medical disorder 6. Acute intervention needed for co occurring psychiatric disorder 7. Severe withdrawal that cannot be handled at a lower level of care (continued vomiting, continued diarrhea, abnormal vital signs) requiring intravenous medication and/or fluids 8. Admitting History and Physical - Smoking History Smoking history: Current every day smoker Have you smoked in the past 12 months: Yes Aproximately how many cigarettes per day: 10 - Alcohol/Substance Use Hx Alcohol Use: Yes Admission ROS [facility] Chief Complaint: Alcohol withdrawal symptoms Allergies/Adverse Reactions: Allergies Allergy/AdvReac Type Severity Reaction Status Date / Time No Known Allergies Allergy Verified 07/31/19 16:52 History of Present Illness: 54 years old male with a long history of alcohol dependence is seeking admission to detox. Patient reports that his last detox was here for the period 08/29/2018 - 09/02/2018. He reports 12 years of sobriety(while in correction). He has medical history of hypertension, hyperlipidemia, seizure disorder and glaucoma. He reports psych. history of depression. 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 He is on Methadone 90mg tablet oral daily maintenance therapy. Dose is yet to be verified by the nurse. Exam Limitations: No Limitations - Ebola screening Have you traveled outside of the country in the last 21 days: No (N) Have you had contact with anyone from an Ebola affected area: No Do you have a fever: No - Review of Systems Constitutional: Chills, Malaise, Night Sweats, Changes in sleep EENT: reports: No Symptoms Reported Respiratory: reports: No Symptoms reported Cardiac: reports: No Symptoms Reported GI: reports: Poor Appetite, Poor Fluid Intake, Abdominal cramping : reports: No Symptoms Reported Musculoskeletal: reports: Back Pain Integumentary: reports: Dryness, Flushing Neuro: reports: Headache, Tremors Endocrine: reports: No Symptoms Reported Hematology: reports: No Symptoms Reported Psychiatric: reports: Mood/Affect Appropiate, Orientated x3, Anxious, Depressed Other Systems: Reviewed and Negative Patient History - Patient Medical History Hx Anemia: No Hx Asthma: No Hx Chronic Obstructive Pulmonary Disease (COPD): No Hx Cancer: No Hx Cardiac Disorders: No Hx Congestive Heart Failure: No Hx Hypertension: Yes (Not on medication) Hx Hypercholesterolemia: Yes (Not on medication ) Hx Pacemaker: No HX Cerebrovascular Accident: No Hx Seizures: Yes (Dilantin) Hx Dementia: No Hx Diabetes: No Hx Gastrointestinal Disorders: No Hx Liver Disease: No Hx Genitourinary Disorders: No Hx Sexually Transmitted Disorders: No Hx Renal Disease (ESRD): No Hx Thyroid Disease: No Hx Human Immunodeficiency Virus (HIV): No (Negative 2016) Hx Hepatitis C: No (Negative 2016) Hx Depression: Yes (Not on medication) Hx Suicide Attempt: No Hx Bipolar Disorder: No Hx Schizophrenia: No Other Medical History: Anxiety - Patient Surgical History Past Surgical History: Yes Hx Neurologic Surgery: No Hx Cataract Extraction: No Hx Cardiac Surgery: No Hx Lung Surgery: No Hx Breast Surgery: No Hx Breast Biopsy: No Hx Abdominal Surgery: No Hx Appendectomy: No Hx Cholecystectomy: No Hx Genitourinary Surgery: No Hx Section: No Hx Orthopedic Surgery: Yes (fx left wrist 1998 ORIF) Anesthesia Reaction: No - PPD History Previous Implant?: Yes Documented Results: Negative w/proof Implanted On Prior [facility] Admission?: Yes Date: 09/21/17 Results: 0 mm PPD to be Administered?: Yes - Reproductive History Patient is a Female of Child Bearing Age (11 -55 yrs old): No (male) - Smoking Cessation Smoking history: Current every day smoker Have you smoked in the past 12 months: Yes Aproximately how many cigarettes per day: 10 Cigars Per Day: 0 Hx Chewing Tobacco Use: No Initiated information on smoking cessation: Yes 'Breaking Loose' booklet given: 07/31/19 - Substance & Tx. History Hx Alcohol Use: Yes Hx Substance Use: Yes Substance Use Type: Cocaine, Heroin, Marijuana, Prescribed Hx Substance Use Treatment: Yes ([facility]) - Substances abused Heroin Substance route: Inhalation Frequency: 3-6 times per week Amount used: 2 to 3 bags Age of first use: 15 Date of last use: 07/31/19 Crack Other (specify): cocaine Substance route: Inhalation Frequency: Daily Amount used: it depends on how much money I got' Age of first use: 20 Date of last use: 07/31/19 Alcohol Substance route: Oral Frequency: Daily Amount used: 2 to 6 packs more/ also drinks liqour/ drinks 100 dollars. Age of first use: 9 Date of last use: 07/31/19 Admission Physical Exam S - Vital Signs Vital Signs: Vital Signs - 24 hr 07/31/19 07/31/19 16:51 19:40 Temperature 96.3 F L 96.3 F L Pulse Rate 65 65 Respiratory 16 16 Rate Blood Pressure 141/87 141/87 - Physical General Appearance: Yes: Within Normal Limits, Moderate Distress, Tremorous, Anxious HEENTM: Yes: Within Normal Limits Respiratory: Yes: Lungs Clear, Normal Breath Sounds, No Respiratory Distress Neck: Yes: Within Normal Limits Breast: Yes: Breast Exam Deferred Cardiology: Yes: Regular Rhythm, Regular Rate Abdominal: Yes: Normal Bowel Sounds, Soft Genitourinary: Yes: Within Normal Limits Back: Yes: Normal Inspection Musculoskeletal: Yes: Back pain Extremities: Yes: Tremors Neurological: Yes: Within Normal Limits Integumentary: Yes: Warm Lymphatic: Yes: Within Normal Limits - Diagnostic (1) Glaucoma Current Visit: Yes Status: Acute (2) Alcohol dependence with uncomplicated withdrawal Current Visit: No Status: Acute (3) Cannabis dependence Current Visit: No Status: Acute (4) Nicotine dependence Current Visit: No Status: Acute Qualifiers: Nicotine product type: cigarettes Substance use status: in withdrawal Qualified Code(s): F17.213 - Nicotine dependence, cigarettes, with withdrawal (5) Cocaine dependence Current Visit: No Status: Chronic Qualifiers: Substance use status: uncomplicated Qualified Code(s): F14.20 - Cocaine dependence, uncomplicated (6) Epilepsy Current Visit: No Status: Chronic Qualifiers: Epilepsy type: unspecified Intractability: not intractable Status epilepticus: without status epilepticus Qualified Code(s): G40.909 - Epilepsy , unspecified, not intractable, without status epilepticus (7) HLD (hyperlipidemia) Current Visit: No Status: Chronic Qualifiers: Hyperlipidemia type: unspecified Qualified Code(s): E78.5 - Hyperlipidemia , unspecified (8) HTN (hypertension) Current Visit: No Status: Chronic Qualifiers: Hypertension type: essential hypertension Qualified Code(s): I10 - Essential (primary) hypertension (9) Hernia, inguinal, right Current Visit: No Status: Chronic (10) Marijuana dependence Current Visit: No Status: Chronic (11) Methadone maintenance therapy patient Current Visit: No Status: Chronic Comment: 60 mg PO Daily; Last Day medicated: Today, 07/08/2017 - Pending Verification. Cleared for Admission S - Detox or Rehab [facility] Level of Care: Medically Managed Detox Regimen/Protocol: Librium Breathalyzer - Breathalyzer Breathalyzer: 0 Urine Drug Screen - Test Device Lot number: [id number] Expiration date: 02/07/21 - Control Is test valid?: Yes - Results Drug screen NEGATIVE: No Urine drug screen results: THC-Marijuana, LIBIA-Cocaine, MTD-Methadone Inpatient Rehab Admission - Rehab Decision to Admit Inpatient rehab admission?: No
[2019-07-31] MEDS ORDERED: chlordiazePOXIDE HCL 25 MG CAPSULE PO PRN (21:16)
[2019-07-31] MEDS ORDERED: BISMUTH SUBSALICYLATE 524 MG/30 ML UD PO PRN (21:16)
[2019-07-31] MEDS ORDERED: MAG HYDROX/AL HYDROX/SIMETH 30 ML UNIT-DOSE CUP PO PRN (21:16)
[2019-07-31] MEDS ORDERED: NICOTINE POLACRILEX 2 MG GUM BUC PRN (21:16)
[2019-07-31] MEDS ORDERED: ACETAMINOPHEN 325 MG TABLET (FP) PO PRN ×2 (21:16)
[2019-07-31] MEDS ORDERED: MENTHOL/PHENOL 1 EACH UD MM PRN (21:16)
[2019-07-31] MEDS ORDERED: METHOCARBAMOL 500 MG TABLET PO PRN (21:16)
[2019-07-31] MEDS ORDERED: MAGNESIUM CITRATE 300 ML BOTTLE PO PRN (21:16)
[2019-07-31] MEDS ORDERED: MAGNESIUM HYDROX 2400MG/30ML ORAL SUSPENSION 30 ML CUP PO PRN (21:16)
[2019-07-31] MEDS: THIAMINE HCL 100 MG TABLET (FP) PO SCH (23:22)
[2019-07-31] MEDS: chlordiazePOXIDE HCL 25 MG CAPSULE PO SCH (23:22)
[2019-07-31] MEDS: MELATONIN 5 MG TABLETS PO PRN (23:23)
[2019-08-01] MEDS: chlordiazePOXIDE HCL 25 MG CAPSULE PO SCH ×4 (05:16→22:15)
--- NOTE | 2019-08-01 09:39 | PN ---
S CIWA - CIWA Score Nausea/Vomitin-Mild Nausea/No Vomiting Muscle Tremors: 2 Anxiety: 3 Agitation: 4-Moderately Restless Paroxysmal Sweats: 2 Orientation: 0-Oriented Tacttile Disturbances: 0-None Auditory Disturbances: 0-None Visual Disturbances: 0-None Headache: 1-Very Mild CIWA-Ar Total Score: 13 BHS Progress Note (SOAP) Subjective: 54 years old male admitted on 07/31/19 for alcohol withdrawal sx management treating with librium detox regimen feeling ok today ate breakfast resting in bed waiting for methadone 90mg po daily Objective: 08/01/19 09:38 Vital Signs Temperature 97.8 F 08/01/19 09:07 Pulse Rate 79 08/01/19 09:07 Respiratory Rate 18 08/01/19 09:07 Blood Pressure 142/94 08/01/19 09:07 O2 Sat by Pulse Oximetry (%) 08/01/19 09:38 lab pending Assessment: 08/01/19 09:38 alcohol withdrawal Plan: librium regimen
[2019-08-01] MEDS ORDERED: METHADONE 80 MG, METHADONE 10 MG PO ONE (10:00)
[2019-08-01] MEDS ORDERED: METHADONE HCL 10 MG TABLET PO ONE (10:00)
[2019-08-01] MEDS ORDERED: METHADONE HCL 10 MG TABLET ONE (10:04)
[2019-08-01] MEDS ORDERED: METHADONE HCL 40 MG DISPERSABLE TABLET ONE (10:04)
[2019-08-01] MEDS: PRENATAL VITAMINS W/ FOLIC ACID TABLET (FP) PO SCH (10:20)
[2019-08-01] MEDS: NICOTINE 21 MG/24 HOURS TOPICAL PATCH TD SCH (10:23)
--- NOTE | 2019-08-01 10:31 | EKG ---
Test Reason : Blood Pressure : / mmHG Vent. Rate : 065 BPM Atrial Rate : 065 BPM P-R Int : 134 ms QRS Dur : 090 ms QT Int : 424 ms P-R-T Axes : 071 064 065 degrees QTc Int : 440 ms NORMAL SINUS RHYTHM POSSIBLE LEFT ATRIAL ENLARGEMENT BORDERLINE ECG WHEN COMPARED WITH ECG OF 28-SEP-2017 06:46, NO SIGNIFICANT CHANGE WAS FOUND Confirmed by KALIA RIVERS, VINCE ([id number]) on 08/01/2019 10:31:13 AM Referred By: JULIETH Confirmed By:VINCE MOTTA MD
[2019-08-01 12:23] LABS: HEMATOCRIT 38.2 % (35.4-49); HEMOGLOBIN 12.7 GM/dL (11.7-16.9); MCH 30.3 pg (25.7-33.7); MCHC 33.3 g/dl (32.0-35.9); MEAN CELL VOLUME 91.2 fl (80-96); MEAN PLT VOLUME 8.4 fl (7.5-11.1); PLATELET COUNT 260 K/MM3 (134-434); RBC 4.19 M/mm3 (4.00-5.60); WHITE BLOOD COUNT 3.5 K/mm3 (4.0-10.0)
[2019-08-01 12:40] LABS: ALBUMIN 3.3 g/dl (3.4-5.0); BILIRUBIN,TOTAL 0.2 mg/dL (0.2-1); BLOOD UREA NITROGEN 19.2 mg/dL (7-18); CALCIUM 8.8 mg/dL (8.5-10.1); CREATININE 0.9 mg/dL (0.55-1.3); POTASSIUM 4.4 mmol/L (3.5-5.1); TOT PROT 6.1 g/dl (6.4-8.2)
[2019-08-01 14:23] LABS: URINE APPEARANCE CLEAR; URINE BILIRUBIN NEGATIVE (NEGATIVE); URINE COLOR YELLOW; URINE GLUCOSE (UA) NEGATIVE (NEGATIVE); URINE KETONE TRACE (NEGATIVE); URINE LEUK ESTERASE NEGATIVE (NEGATIVE); URINE NITRITE NEGATIVE (NEGATIVE); URINE PROTEIN NEGATIVE (NEGATIVE); URINE UROBILINOGEN 0.2 mg/dL (0.2-1.0)
--- NOTE | 2019-08-01 15:17 | CONSULT ---
[facility] Psychiatric Consult - Data Date of interview: 08/01/19 Admission source: [facility] Identifying data: Patient approached at bedside for psychiatric interview. Medical students in attendance. Mr Rainey is a poor, somnolent historian. Not able to provide a comprehensive history due to sedation. Nursing staff is made aware.
[2019-08-01] MEDS: THIAMINE HCL 100 MG TABLET (FP) PO SCH (22:15)
[2019-08-01] MEDS: MELATONIN 5 MG TABLETS PO PRN (22:15)
[2019-08-02] MEDS ORDERED: METHADONE HCL 10 MG TABLET ONE (04:45)
[2019-08-02] MEDS ORDERED: METHADONE HCL 40 MG DISPERSABLE TABLET ONE (04:46)
[2019-08-02] MEDS ORDERED: METHADONE 80 MG, METHADONE 10 MG PO SCH (06:00)
[2019-08-02] MEDS ORDERED: METHADONE HCL 10 MG TABLET PO SCH (06:00)
[2019-08-02] MEDS: chlordiazePOXIDE HCL 25 MG CAPSULE PO SCH ×4 (06:31→23:43)
[2019-08-02] MEDS: IBUPROFEN 400 MG TABLET (FP) PO PRN ×2 (06:49→17:43)
--- NOTE | 2019-08-02 09:55 | PN ---
[facility] CIWA - CIWA Score Nausea/Vomitin-No Nausea/No Vomiting Muscle Tremors: 3 Anxiety: 1-Mildly Anxious Agitation: 1-Slight > Activity Paroxysmal Sweats: 2 Orientation: 3-Disoriented Date>2 days (date of week and time of day) Tacttile Disturbances: 0-None Auditory Disturbances: 0-None Visual Disturbances: 0-None Headache: 0-None Present CIWA-Ar Total Score: 10 S Progress Note (SOAP) Subjective: 54 years old male admitted on 07/31/19 for alcohol withdrawal sx management treating with librium detox regiment patient appears confused with slow movement able eat breakfast independently ambulating to bathroom independently chart reviewed that the patient is taking Dilantin for seizure 100mg po qid dilantin level order as well as ammonia serum level case discussed with the phlebotomy level pending Objective: 08/02/19 10:04 Vital Signs Temperature 97 F L 08/02/19 07:00 Pulse Rate 85 08/02/19 09:12 Respiratory Rate 18 08/02/19 09:12 Blood Pressure 126/86 08/02/19 09:12 O2 Sat by Pulse Oximetry (%) Laboratory Last Values WBC 3.5 K/mm3 (4.0-10.0) L 08/01/19 08:00 RBC 4.19 M/mm3 (4.00-5.60) 08/01/19 08:00 Hgb 12.7 GM/dL (11.7-16.9) 08/01/19 08:00 Hct 38.2 % (35.4-49) 08/01/19 08:00 MCV 91.2 fl (80-96) 08/01/19 08:00 MCH 30.3 pg (25.7-33.7) 08/01/19 08:00 MCHC 33.3 g/dl (32.0-35.9) 08/01/19 08:00 RDW 14.0 % (11.9-15.9) 08/01/19 08:00 Plt Count 260 K/MM3 (134-434) 08/01/19 08:00 MPV 8.4 fl (7.5-11.1) 08/01/19 08:00 Sodium 142 mmol/L (136-145) 08/01/19 08:00 Potassium 4.4 mmol/L (3.5-5.1) 08/01/19 08:00 Chloride 108 mmol/L (98-107) H 08/01/19 08:00 Carbon Dioxide 28 mmol/L (21-32) 08/01/19 08:00 Anion Gap 6 MMOL/L (8-16) L 08/01/19 08:00 BUN 19.2 mg/dL (7-18) H 08/01/19 08:00 Creatinine 0.9 mg/dL (0.55-1.3) 08/01/19 08:00 Est GFR (CKD-EPI)AfAm 111.83 08/01/19 08:00 Est GFR (CKD-EPI)NonAf 96.49 08/01/19 08:00 Random Glucose 106 mg/dL (74-106) 08/01/19 08:00 Calcium 8.8 mg/dL (8.5-10.1) 08/01/19 08:00 Total Bilirubin 0.2 mg/dL (0.2-1) 08/01/19 08:00 AST 16 U/L (15-37) 08/01/19 08:00 ALT 27 U/L (13-61) 08/01/19 08:00 Alkaline Phosphatase 91 U/L (45-117) 08/01/19 08:00 Total Protein 6.1 g/dl (6.4-8.2) L 08/01/19 08:00 Albumin 3.3 g/dl (3.4-5.0) L 08/01/19 08:00 Urine Color Yellow 08/01/19 08:00 Urine Appearance Clear 08/01/19 08:00 Urine pH 6.0 (5.0-8.0) 08/01/19 08:00 Ur Specific [place] 1.035 (1.010-1.035) 08/01/19 08:00 Urine Protein Negative (NEGATIVE) 08/01/19 08:00 Urine Glucose (UA) Negative (NEGATIVE) 08/01/19 08:00 Urine Ketones Trace (NEGATIVE) H 08/01/19 08:00 Urine Blood Negative (NEGATIVE) 08/01/19 08:00 Urine Nitrite Negative (NEGATIVE) 08/01/19 08:00 Urine Bilirubin Negative (NEGATIVE) 08/01/19 08:00 Urine Urobilinogen 0.2 mg/dL (0.2-1.0) 08/01/19 08:00 Ur Leukocyte Esterase Negative (NEGATIVE) 08/01/19 08:00 lab noted Assessment: 08/02/19 10:04 alcohol withdrawal seizure precaution fall precaution Plan: librium regiment patient received methadone 90mg po today
[2019-08-02] MEDS ORDERED: amLODIPine BESYLATE 5 MG TABLET (FP) PO SCH (10:00)
[2019-08-02] MEDS: PRENATAL VITAMINS W/ FOLIC ACID TABLET (FP) PO SCH (10:04)
[2019-08-02] MEDS: NICOTINE 21 MG/24 HOURS TOPICAL PATCH TD SCH (10:05)
[2019-08-02] MEDS ORDERED: ALBUTEROL SO4 HFA INHALER IH PRN (11:22)
[2019-08-02] MEDS ORDERED: ALBUTEROL SO4 0.083% IH SOL 2.5 MG/3 ML VIAL.NEB. NEB PRN (11:23)
[2019-08-02] MEDS: PHENYTOIN NA EXTENDED 100 MG CAPSULE (FP) PO SCH ×4 (12:16→23:42)
[2019-08-02] MEDS: BUDESONIDE/FORMETEROL FUMARATE 80/4.5 mcg INHALER IH SCH ×2 (13:55→23:42)
[2019-08-02 17:06] VITALS: BP 120/69; PULSE 77; TEMP 97.1
--- NOTE | 2019-08-02 17:50 | PN ---
S Progress Note Note: Called by RN to evaluate pt for lethargy. On evaluation, pt was noted to be in bed. pt states that he is not leaving bed because he is in significant LBP and pain in R groin On exam, pt is AOx3, although has muffled speech. RN states muffled speech is new . Pt has a non reducible, tender R inguinal hernia Will send pt to [facility] ED for further evaluation of lethargy/ muffled speech and hernia. sign out given to ED provider
--- NOTE | 2019-08-02 18:46 | PN ---
Teaching Attending Note Name of Resident: Aleja Magallanes ATTENDING PHYSICIAN STATEMENT I saw and evaluated the patient. I reviewed the resident's note and discussed the case with the resident. I agree with the resident's findings and plan as documented. SUBJECTIVE: called by nurse for pt w/ increased sedation . Pt found sitting in bed, eating dinner , c/o pain in the groin at inguinal hernia site . hypertension, hyperlipidemia, seizure disorder and glaucoma , pt here for ETOH detox , on MMTP 90 mg daily . OBJECTIVE: wnwd , AO x 3 , soft speech , able to answer questions appropriately . large right inguinal hernia non- reducible , tender to palpation Vital Signs - 24 hr 08/01/19 08/02/19 08/02/19 21:21 00:25 03:30 Temperature 97.6 F Pulse Rate 78 Respiratory 18 18 16 Rate Blood Pressure 130/82 08/02/19 08/02/19 08/02/19 07:00 07:38 09:12 Temperature 97 F L Pulse Rate 59 L 79 85 Respiratory 18 18 18 Rate Blood Pressure 102/58 L 136/83 126/86 08/02/19 17:05 Temperature 97.1 F L Pulse Rate 77 Respiratory 18 Rate Blood Pressure 120/69 Abnormal Lab Results 08/02/19 10:20 Ammonia 47.70 H Active Medications Acetaminophen (Tylenol -) 650 mg PO Q6H PRN PRN Reason: PAIN LEVEL 4 - 6 Acetaminophen (Tylenol -) 650 mg PO Q6H PRN PRN Reason: FEVER Al Hydroxide/Mg Hydroxide (Mylanta Oral Suspension -) 30 ml PO Q6H PRN PRN Reason: DYSPEPSIA Albuterol Sulfate (Ventolin Hfa Inhaler -) 2 puff IH Q4H PRN PRN Reason: SHORT OF BREATH/WHEEZING Albuterol Sulfate (Ventolin 0.083% Nebulizer Soln -) 1 amp NEB Q6H PRN PRN Reason: SHORT OF BREATH/WHEEZING Amlodipine Besylate (Norvasc -) 5 mg PO DAILY [facility] Last Admin: 08/02/19 12:17 Dose: 5 mg Bismuth Subsalicylate (Pepto-Bismol -) 524 mg PO Q1H PRN PRN Reason: DIARRHEA Budesonide/Formoterol Fumarate (Symbicort 80/4.5mcg -) 2 puff IH BID [facility] Last Admin: 08/02/19 13:55 Dose: 2 inh Chlordiazepoxide HCl (Librium -) 10 mg PO [id number] [facility] Stop: 08/03/19 23:01 Chlordiazepoxide HCl (Librium -) 10 mg PO Q12H DEVIN Stop: 08/04/19 17:01 Chlordiazepoxide HCl (Librium -) 10 mg PO Q4H PRN PRN Reason: WITHDRAWAL(CONT SUBST) Stop: 08/04/19 00:00 Chlordiazepoxide HCl (Librium -) 10 mg PO ONCE@0500 ONE Stop: 08/05/19 05:01 Chlordiazepoxide HCl (Librium -) 25 mg PO [id number] [facility] Stop: 08/02/19 23:01 Last Admin: 08/02/19 17:44 Dose: Not Given Chlordiazepoxide HCl (Librium -) 25 mg PO Q4H PRN PRN Reason: WITHDRAWAL(CONT SUBST) Stop: 08/02/19 23:59 Eucalyptus/Menthol/Phenol/Sorbitol (Cepastat Lozenge -) 1 each MM Q4H PRN PRN Reason: SORE THROAT Stop: 08/06/19 21:16 Ibuprofen (Motrin -) 400 mg PO Q6H PRN PRN Reason: PAIN LEVEL 1 - 3 Last Admin: 08/02/19 17:43 Dose: 400 mg Magnesium Citrate (Citroma -) 300 ml PO Q48H PRN PRN Reason: CONSTIPATION Magnesium Hydroxide (Milk Of Magnesia -) 30 ml PO PRN PRN PRN Reason: CONSTIPATION Melatonin (Melatonin) 5 mg PO HS PRN PRN Reason: INSOMNIA Last Admin: 08/01/19 22:15 Dose: 5 mg Methadone HCl 80 mg/ Methadone (HCl 10 mg) 90 mg PO DAILY@0600 [facility] Stop: 08/08/19 05:59 Last Admin: 08/02/19 06:31 Dose: 90 mg Methocarbamol (Robaxin -) 500 mg PO Q6H PRN PRN Reason: MUSCLE SPASMS Stop: 08/06/19 21:16 Last Admin: 08/01/19 22:16 Dose: 500 mg Nicotine (Nicoderm Patch -) 21 mg TD DAILY [facility] Last Admin: 08/02/19 10:05 Dose: 21 mg Nicotine Polacrilex (Nicorette Gum -) 2 mg BUC Q2H PRN PRN Reason: NICOTINE REPLACEMENT RX Phenytoin Sodium (Dilantin -) 100 mg PO QID [facility] Last Admin: 08/02/19 17:43 Dose: 100 mg Multivit/Folic Acid/Iron ( Vitamins (Sjr) -) 1 tab PO DAILY [facility] Last Admin: 08/02/19 10:04 Dose: 1 tab Thiamine HCl (Vitamin B1 -) 100 mg PO HS [facility] Last Admin: 08/01/19 22:15 Dose: 100 mg ASSESSMENT AND PLAN: transfer to ED for further evaluation of sedation and inguinal hernia .
[2019-08-02] MEDS: THIAMINE HCL 100 MG TABLET (FP) PO SCH (23:42)
[2019-08-03] MEDS ORDERED: chlordiazePOXIDE HCL 10 MG CAPSULE PO PRN
[2019-08-03] MEDS ORDERED: SODIUM CHLORIDE 1,000 ML IV SCH (02:30)
[2019-08-03] MEDS ORDERED: chlordiazePOXIDE HCL 10 MG CAPSULE PO SCH (05:00)
[2019-08-04] MEDS ORDERED: chlordiazePOXIDE HCL 10 MG CAPSULE PO SCH (05:00)
[2019-08-05] MEDS ORDERED: chlordiazePOXIDE HCL 10 MG CAPSULE PO ONE (05:00)
--- NOTE | 2019-08-05 15:55 | PN ---
[facility] Progress Note Note: received MD call from Shaila stated that the patient had been transferred from [address] to [facility] ER for right inginal hearnia repaired on 08/02/19 the hernia has bee successfully repaired surgically and the patient is ready to be transferred back to [facility] patient is in the methadone maintenance program 90mg po daily with ativan prn for alcohol withdrawal last alcohol drinking was 07/31/19 alcohol rehab most suitable for Mr Rainey at this time case discussed with intake staff no male rehab bed available case discussed with the nursing accounting clerks supervisor on duty that Shaila catalytic case operator is able to coordinate with [facility] for alcohol rehab admission on 08/06/19
== END 2019-08-02 11:55 | disposition short-term general hospital (02) | DRG 773 ==
LOC: YASAS 14:47 → Y3N 21:47
PROVIDERS: ADMIT Allergy & Immunology; ATTEND Allergy & Immunology
PROC: HZ2ZZZZ Detoxification Services for Substance Abuse Treatment (ICD-10-PCS; principal; 2019-07-31)
DX: F10.230 Alcohol dependence with withdrawal, uncomplicated (principal); F11.20 Opioid dependence, uncomplicated; F14.20 Cocaine dependence, uncomplicated; F17.210 Nicotine dependence, cigarettes, uncomplicated; F41.8 Other specified anxiety disorders; F32.9 Major depressive disorder, single episode, unspecified; I10 Essential (primary) hypertension; E78.5 Hyperlipidemia, unspecified; E78.00 Pure hypercholesterolemia, unspecified; G40.909 Epilepsy, unspecified, not intractable, without status epilepticus; H40.9 Unspecified glaucoma; K40.90 Unilateral inguinal hernia, without obstruction or gangrene, not specified as recurrent
CPT/HCPCS: 36415; 80053; 80185; 81003; 82140; 85027; 93005; 93010

== ENCOUNTER 2019-08-02 18:41 | Inpatient (IN) | payer OTHER ==
--- NOTE | 2019-08-02 19:19 | PDOC ---
History of Present Illness - General Stated Complaint: HERNIA Time Seen by Provider: 08/02/19 19:14 - History of Present Illness Initial Comments: 08/02/19 20:45 54 y/o M hx of alcohol dependence, polysubstance abuse, HTN, HLD, seizures admitted to [facility] for alcohol withdrawal managemnt 2 days ago, presents to the ED with right sided abdominal pain. Pt has had an inguinal hernia for approximately 2 years. He states that it has been reducible in the past, but lately has been getting bigger. He reports increased intermittent pain in his right lower quadrant. Pain is 9/10, exacerbated by increased abdominal pressure (bowel movements) or with urination. He endorses bloody emesis, stools with bright red blood (last bowel movement this a.m) and bloody urine as well. He denies fevers, chills, trauma, falls. Past History - Past Medical History Allergies/Adverse Reactions: Allergies Allergy/AdvReac Type Severity Reaction Status Date / Time No Known Allergies Allergy Verified 08/06/19 17:31 Home Medications: Ambulatory Orders Phenytoin Na Extended [Dilantin -] 100 mg PO TID 07/31/19 Folic Acid - 1 mg PO DAILY 30 Days #30 tablet 08/06/19 Methadone [Dolophine -] 90 mg PO DAILY #1 tab.disper MDD 90 mg 08/06/19 Multivitamin [One-Daily Multi-Vitamin] 1 each PO DAILY 30 Days #30 tablet Thiamine HCl [Vitamin B1 -] 100 mg PO DAILY 30 Days #30 tablet 08/06/19 Anemia: No Asthma: No Cancer: No Cardiac Disorders: No CVA: No COPD: No CHF: No Dementia: No Diabetes: No GI Disorders: No Disorders: No HTN: Yes (Not on medication) Hypercholesterolemia: Yes (Not on medication ) Kidney Stones: No Liver Disease: No Seizures: Yes (Dilantin) Thyroid Disease: No - Surgical History Abdominal Surgery: No Appendectomy: No Cardiac Surgery: No Cholecystectomy: No Lung Surgery: No Neurologic Surgery: No Orthopedic Surgery: Yes (fx left wrist 1998 ORIF) - Reproductive History Testicular Surgery: No - Psycho Social/Smoking Cessation Hx Smoking History: Current every day smoker Have you smoked in the past 12 months: Yes Number of Cigarettes Smoked Daily: 10 Cigars Per Day: 0 'Breaking Loose' booklet given: 07/31/19 Hx Alcohol Use: Yes Drug/Substance Use Hx: Yes Substance Use Type: Cocaine, Heroin, Marijuana, Prescribed Hx Substance Use Treatment: Yes ([facility]) *Physical Exam - Physical Exam 08/02/19 20:57 GENERAL: AO x 2 (person and place). somnolent but arousable. HEAD: No signs of trauma, normocephalic, atraumatic EYES: PERRLA, sclera anicteric, conjunctiva clear ENT: Auricles normal inspection, hearing grossly normal, nares patent, oropharynx clear without exudates. NECK: Normal ROM, supple, no lymphadenopathy, JVD, or masses LUNGS: No distress, speaks full sentences, clear to auscultation bilaterally HEART: Regular rate and rhythm, normal S1 and S2, +systolic murmur peripheral pulses normal and equal bilaterally. ABDOMEN: Soft, nontender, normoactive bowel sounds. No guarding, no rebound. No masses MALE : scrotal sac enlarged .intestinal contents in right scrotum. non- reducible. Absent inguinal lymphadenopathy or bulge. Absent perineum skin change. RECTAL: Absent gross blood per rectum, + minimal greenish brown stool, non compacted rectal vault. EXTREMITIES : Normal inspection, Normal range of motion, no edema. No clubbing or cyanosis NEUROLOGICAL: Cranial nerves II through XII grossly intact. slow speech. SKIN: Warm, Dry, normal turgor, no rashes or lesions noted ED Treatment Course - LABORATORY CBC & Chemistry Diagram: 08/05/19 08:30 08/05/19 08:30 Medical Decision Making - Medical Decision Making 08/02/19 21:02 54 y/o M hx of alcohol dependence, polysubstance abuse, HTN, HLD, seizures admitted to [facility] for alcohol withdrawal managemnt 2 days ago, presents to the ED with right sided abdominal pain cbc, cmp , lactic acid, pt/inr/ptt, type and screen, abdomen and pelvis ct. guiac Meds: tylenol 1000mg IV DDx: strangulated vs incarcareted hernia vs mesenteric ishemia, 08/02/19 21:03 08/02/19 21:13 ekg normal sinus rhythm, minimal voltage criteria for LVH. no ST elevations 08/02/19 21:14 08/03/19 01:10 CT abdomen and pelvis 14 x 9.2 x 7.4 cm right inguinal region hernia containing cecum/proximal ascending colon, terminal ileum, and normal appendix. Feculent and borderline dilated loops of distal ileum in lower pelvis may represent low-grade partial small bowel obstruction. Moderate to large feces colon. No bowel inflammation. No free air. Trace ascites. Unremarkable liver, spleen, stomach, pancreas and gallbladder. Small cystic foci bilateral kidneys. Levoscoliosis versus positioning - Surgery consulted NG tube will be placed pt admitted to hospital. Discharge - Discharge Information Problems reviewed: Yes Clinical Impression/Diagnosis: Hernia, inguinal, right, Partial small bowel obstruction Condition: Improved Disposition: PHYSICAL REHABILATION FACILITY - Follow up/Referral - Patient Discharge Instructions - Post Discharge Activity
[2019-08-02] MEDS ORDERED: ACETAMINOPHEN 1000 MG/100 ML VIAL (NON FORMULARY) IVPB ONE (20:42)
[2019-08-02] MEDS ORDERED: FOLIC ACID INJECTION - 1 MG, THIAMINE HCL 100 MG, MULTIVIT INJECTION ADULT 10 ML in SOD... IVPB ONE (20:43)
[2019-08-02] MEDS ORDERED: SODIUM CHLORIDE 0.9% 500 ML INFUS.BAG IV ONE (20:43)
[2019-08-02] MEDS ORDERED: ACETAMINOPHEN INJECTION 100 ML IVPB ONE (20:48)
--- NOTE | 2019-08-02 20:57 | PDOC ---
Documentation entered by Andres Watson SCRIBE, acting as scribe for Viky Dias DO. Viky Dias DO: This documentation has been prepared by the Walter coto Daniel, SCRIBE, under my direction and personally reviewed by me in its entirety. I confirm that the documentation accurately reflects all work, treatment, procedures, and medical decision making performed by me. Attending Attestation - Resident Resident Name: CristianSumiBudKiran - ED Attending Attestation I have performed the following: I have examined & evaluated the patient, The case was reviewed & discussed with the resident, I agree w/resident's findings & plan, Exceptions are as noted - HPI HPI: 08/02/19 20:43 The patient is a 54 year old male with a past medical history of HTN, HLD, polysubstance abuse (cocaine, meth, heroine, and alcohol), and seizures here today for evaluation of right inguinal hernia pain. The patient was sent from [facility] due to his right inguinal hernia. He also notes bloody emesis, diarrhea, and rectal bleeding since tuesday (07/29/2019). Patient denies headache, lightheadedness. Denies fever, chills. Denies chest pain, shortness of breath. Denies abdominal pain. Allergies: NKA - Physicial Exam PE: 08/02/19 20:44 Constitutional: Awake, alert, oriented. No acute distress. Head: Normocephalic. Atraumatic Eyes: PERRL. EOMI. Conjunctivae are not pale. ENT: Mucous membranes are moist and intact. Posterior pharynx without exudates or erythema. Uvula midline. Neck: Supple. Full ROM. No lymphadenopathy. Cardiovascular: Regular rate. Regular rhythm. S1, S2 regular. Distal pulses are 2+ and symmetric. Pulmonary/Chest: No evidence of respiratory distress. Clear to auscultation bilaterally No wheezing, rales or rhonchi. Abdominal: +very large right scrotal hernia with bowel in it that is not reducible. Soft and non-distended. There is no tenderness. No rebound, guarding or rigidity. No organomegaly. No palpable masses. Good bowel sounds. Back: No CVA tenderness. Musculoskeletal: No edema. No cyanosis. No clubbing. Full range of motion in all extremities. Nocalf tenderness. Radial/pedal pulses are intact and 2+ bilaterally Skin: Skin is warm and dry. No petechiae. No purpura. Neurological: Alert and oriented to person, place, and time. Cranial nerves II -XII are grossly intact. Normal speech. Strength is grossly symmetric. No sensory deficits. Psychiatric: Good eye contact. Normal interaction, affect and behavior. - Medical Decision Making 08/02/19 20:28 a/p: 54yo male sent from [facility] for eval of n/v/d- rectal bleeding and R inguinal/scrotal hernia that is ttp and nonreducible -pt with etoh abuse -had vomiting blood on tuesday -went to [facility] for detox from etoh today -pt with hx of polysubstance abuse in the past -concern for gi bleeding from etoh vs incarcerated hernia -no external signs of strangulation -will send labs, ct abd/pelvis -rectal exam -will hydrate -will monitor and reassess 08/02/19 22:00 labs reviewed pt to ct imaging 08/02/19 22:26 O+ type and screen labs reviewed ua neg 08/03/19 00:30 pt with partial sbo with large r inguinal hernia containing cecum/proximal ascending colon, terminal ileum, and normal appendix case discussed with Dr. Sheridan who agrees with plan will place ngt microblog sent to [facility] 08/03/19 00:47 case discussed with renealvaro who accepts pt to service Discharge - Discharge Information Problems reviewed: Yes Clinical Impression/Diagnosis: Hernia, inguinal, right, Partial small bowel obstruction Condition: Guarded - Admission Yes - Follow up/Referral - Patient Discharge Instructions - Post Discharge Activity
[2019-08-02 21:06] LABS: BASO % 0.8 % (0-2.0); EOS % 1.5 % (0-4.5); HEMATOCRIT 34.8 % (35.4-49); HEMOGLOBIN 11.5 GM/dL (11.7-16.9); LYMPH % 17.6 % (8-40); MCH 30.2 pg (25.7-33.7); MCHC 32.9 g/dl (32.0-35.9); MEAN CELL VOLUME 91.7 fl (80-96); MEAN PLT VOLUME 8.6 fl (7.5-11.1); MONO % 8.1 % (3.8-10.2); PLATELET COUNT 220 K/MM3 (134-434); RDW 14.1 % (11.9-15.9); WHITE BLOOD COUNT 6.5 K/mm3 (4.0-10.0)
[2019-08-02 21:25] LABS: ALBUMIN 3.1 g/dl (3.4-5.0); BILIRUBIN,TOTAL 0.2 mg/dL (0.2-1); BLOOD UREA NITROGEN 18.2 mg/dL (7-18); CALCIUM 8.5 mg/dL (8.5-10.1); CREATININE 0.8 mg/dL (0.55-1.3); POTASSIUM 4.1 mmol/L (3.5-5.1); TOT PROT 5.8 g/dl (6.4-8.2)
[2019-08-02 22:18] LABS: PH,URINE 5.5 (5.0-8.0); URINE APPEARANCE CLEAR; URINE BILIRUBIN NEGATIVE (NEGATIVE); URINE COLOR YELLOW; URINE GLUCOSE (UA) NEGATIVE (NEGATIVE); URINE KETONE NEGATIVE (NEGATIVE); URINE LEUK ESTERASE NEGATIVE (NEGATIVE); URINE NITRITE NEGATIVE (NEGATIVE); URINE PROTEIN NEGATIVE (NEGATIVE); URINE UROBILINOGEN 0.2 mg/dL (0.2-1.0)
[2019-08-02 22:23] LABS: INR 0.96 (0.83-1.09); PROTHROMBIN TIME (PATIENT) 11.3 SEC (9.7-13.0)
[2019-08-02 22:26] LABS: ACTIVATED PTT 33.9 SECONDS (25.2-36.5)
[2019-08-03] MEDS ORDERED: LIDOCAINE HCL 2% JELLY (30 ML/TUBE) TP ONE (00:53)
[2019-08-03] MEDS ORDERED: LIDOCAINE HCL 2% JELLY (5 ML/TUBE) ONE (00:57)
--- NOTE | 2019-08-03 01:00 | HP ---
CHIEF COMPLAINT: Rt sided abdominal pain with nausea, vomiting, hematuria, and bloody BMs since 2 days PCP: None HISTORY OF PRESENT ILLNESS: This is a 54 year old male with PMH of polysubstance abuse, alcoholic hepatitis , HTN, HLD, seizures, and an inguinal hernia. He presented to the ER with complaints of Rt sided abdominal pain with nausea for the past 2 days. He has had a right sided inguinal hernia for the past 2 years, which has always been reducible until the past few weeks when reduction of the hernia started becoming progressively harder. He first noticed the hernia approximately 2 years ago, after he engaged in an exercise resulting in increased intraabdominal pressure. Since then, the hernia has gradually increased in size. His last BM was last night, brown and soft. Of note, he has been having bloody BMs approximately once a month for the past 6 months, as well as an episode of hematuria 2 weeks ago ad an episode of vomiting on Tuesday. He was admitted to [facility] for alcohol detoxification 2 days ago. He has a history of significant alcohol use (2 6-packs a day for over 40 years), smoking crack cocaine, marijuana, and smokes 1/2ppd for 30 years. He also has a history of seizures, approximately 4 episodes every year, last experienced in May. He takes Dilantin, but has not taken any for the past 2 weeks. ER course was notable for: (1) CTAP: 14x9x7 cm R inguinal hernia containing cecum/prox ascending colon, ileum, appendix. Dilated bowel loops suggestive of low grade SBO (2) (3) Recent Travel: PAST MEDICAL HISTORY: PAST SURGICAL HISTORY: Social History: Smoking: Alcohol: Drugs: Allergies No Known Allergies Allergy (Verified 07/31/19 16:52) HOME MEDICATIONS: Home Medications Medication Instructions Recorded Terbinafine HCl [Lamisil At] 12 gm TP DAILY 06/13/18 Phenytoin Na Extended [Dilantin -] 100 mg PO QID 07/31/19 REVIEW OF SYSTEMS CONSTITUTIONAL: Absent: fever, chills, diaphoresis, generalized weakness, malaise, loss of appetite, weight change HEENT: Absent: rhinorrhea, nasal congestion, throat pain, throat swelling, difficulty swallowing, mouth swelling, ear pain, eye pain, visual changes CARDIOVASCULAR: Absent: chest pain, syncope, palpitations, irregular heart rate, lightheadedness , peripheral edema RESPIRATORY: Absent: cough, shortness of breath, dyspnea with exertion, orthopnea, wheezing, stridor, hemoptysis GASTROINTESTINAL: Absent: abdominal pain, abdominal distension, nausea, vomiting, diarrhea, constipation, melena, hematochezia GENITOURINARY: Absent: dysuria, frequency, urgency, hesitancy, hematuria, flank pain, genital pain MUSCULOSKELETAL: Absent: myalgia, arthralgia, joint swelling, back pain, neck pain SKIN: Absent: rash, itching, pallor HEMATOLOGIC/IMMUNOLOGIC: Absent: easy bleeding, easy bruising, lymphadenopathy, frequent infections ENDOCRINE: Absent: unexplained weight gain, unexplained weight loss, heat intolerance, cold intolerance NEUROLOGIC: Absent: headache, focal weakness or paresthesias, dizziness, unsteady gait, seizure, mental status changes, bladder or bowel incontinence PSYCHIATRIC: Absent: anxiety, depression, suicidal or homicidal ideation, hallucinations. PHYSICAL EXAMINATION Vital Signs - 24 hr 08/02/19 08/02/19 19:00 19:46 Temperature 98.6 F Pulse Rate 67 Pulse Rate [ 79 Apical] Respiratory 16 20 Rate Blood Pressure 124/85 Blood Pressure 121/81 [Right Arm] O2 Sat by Pulse 99 98 Oximetry (%) CIWA: 2 COWS: 0 GENERAL: AOx3, in no acute distress HEAD: Normal with no signs of trauma. EYES: ALBA, EOMI EARS, NOSE, THROAT: Ears normal, nares patent, oropharynx clear without exudates. Moist mucous membranes. NECK: Normal range of motion, supple without lymphadenopathy, JVD, or masses. LUNGS: Breath sounds equal, clear to auscultation bilaterally. No wheezes, and no crackles. No accessory muscle use. HEART: Regular rate and rhythm, normal S1 and S2 without murmur, rub or gallop. ABDOMEN: Soft, nontender, large right sided irreducible inguinal hernia noticed , tender to palpation and non fluctuant Digital rectal exam: normal tone, empty vault, prostate normal in size without tenderness, no blood or stool on glove MUSCULOSKELETAL: Normal range of motion at all joints. No bony deformities or tenderness. No CVA tenderness. UPPER EXTREMITIES: 2+ pulses, warm, well-perfused. No cyanosis. No clubbing. No peripheral edema. LOWER EXTREMITIES: 2+ pulses, warm, well-perfused. No calf tenderness. No peripheral edema. NEUROLOGICAL: Cranial nerves II-XII intact. Normal speech PSYCHIATRIC: Cooperative. Good eye contact. Appropriate mood and affect. SKIN: Warm, dry, normal turgor, no rashes or lesions noted, normal capillary refill. Laboratory Results - last 24 hr 08/02/19 08/02/19 08/02/19 20:15 20:29 20:29 WBC 6.5 RBC 3.80 L Hgb 11.5 L Hct 34.8 L MCV 91.7 MCH 30.2 MCHC 32.9 RDW 14.1 Plt Count 220 MPV 8.6 Absolute Neuts (auto) 4.7 Neutrophils % 72.0 Lymphocytes % 17.6 Monocytes % 8.1 Eosinophils % 1.5 Basophils % 0.8 Nucleated RBC % 0 PT with INR INR PTT (Actin FS) Sodium 139 Potassium 4.1 Chloride 105 Carbon Dioxide 28 Anion Gap 6 L BUN 18.2 H Creatinine 0.8 Est GFR (CKD-EPI)AfAm 117.38 Est GFR (CKD-EPI)NonAf 101.27 Random Glucose 118 H Lactic Acid Calcium 8.5 Total Bilirubin 0.2 AST 14 L ALT 23 Alkaline Phosphatase 87 Total Protein 5.8 L Albumin 3.1 L Urine Color Yellow Urine Appearance Clear Urine pH 5.5 Ur Specific Sawyer 1.027 Urine Protein Negative Urine Glucose (UA) Negative Urine Ketones Negative Urine Blood Negative Urine Nitrite Negative Urine Bilirubin Negative Urine Urobilinogen 0.2 Ur Leukocyte Esterase Negative Stool Occult Blood Blood Type Antibody Screen 08/02/19 08/02/19 08/02/19 20:29 20:29 20:29 WBC RBC Hgb Hct MCV MCH MCHC RDW Plt Count MPV Absolute Neuts (auto) Neutrophils % Lymphocytes % Monocytes % Eosinophils % Basophils % Nucleated RBC % PT with INR 11.30 INR 0.96 PTT (Actin FS) 33.9 Sodium Potassium Chloride Carbon Dioxide Anion Gap BUN Creatinine Est GFR (CKD-EPI)AfAm Est GFR (CKD-EPI)NonAf Random Glucose Lactic Acid 1.2 Calcium Total Bilirubin AST ALT Alkaline Phosphatase Total Protein Albumin Urine Color Urine Appearance Urine pH Ur Specific Sawyer Urine Protein Urine Glucose (UA) Urine Ketones Urine Blood Urine Nitrite Urine Bilirubin Urine Urobilinogen Ur Leukocyte Esterase Stool Occult Blood Negative Blood Type Antibody Screen 08/02/19 20:40 WBC RBC Hgb Hct MCV MCH MCHC RDW Plt Count MPV Absolute Neuts (auto) Neutrophils % Lymphocytes % Monocytes % Eosinophils % Basophils % Nucleated RBC % PT with INR INR PTT (Actin FS) Sodium Potassium Chloride Carbon Dioxide Anion Gap BUN Creatinine Est GFR (CKD-EPI)AfAm Est GFR (CKD-EPI)NonAf Random Glucose Lactic Acid Calcium Total Bilirubin AST ALT Alkaline Phosphatase Total Protein Albumin Urine Color Urine Appearance Urine pH Ur Specific Sawyer Urine Protein Urine Glucose (UA) Urine Ketones Urine Blood Urine Nitrite Urine Bilirubin Urine Urobilinogen Ur Leukocyte Esterase Stool Occult Blood Blood Type O POSITIVE Antibody Screen Negative ASSESSMENT/PLAN: 54 year old male with PMH of polysubstance abuse, alcoholic hepatitis, HTN, HLD , seizures, and an inguinal hernia. He presented to the ER with complaints of Rt sided abdominal pain with nausea for the past 2 days, and was found to have an incarcerated/strangulated hernia causing low grade SBO on CT AP. #SBO 2/2 inguinal hernia - CTAP: 14x9x7 cm R inguinal hernia containing cecum/prox ascending colon, ileum , appendix. Dilated bowel loops suggestive of low grade SBO - Surgery consulted, Dr. Sheridan - NG placed, patient NPO - PT, PTT, Type and screen ordered - Tylenol, Zofran for symptomatic relief - Urine cx ordered #Anemia - Fe studies ordered - FOBT negative #EtOh/polysubstance use - IV Ativan PRN ordered in case of alcohol withdrawal - Last alcohol and heroin use 2 days ago - CIWA 2, COWS 0 - Banana bag administered - UTox, alcohol level ordered #Hx of possible alcoholic cirrhosis - Pt reports hemetemesis and bleeding IA over the past 6 months - FOBT ordered - GI consult placed (Dr. Farah) - NH3 level elevated, 47.7when checked at [facility] #Hx of seizures - On 100mg QID (400 taken in one dose), has not taken meds in 2 weeks - Confirmed IV dose with pharmacy, started on Dilantin 200mg Q12H #FEN - Started on N/S @100 - NPO #DVT - SCDs for now, avoid chemical AC due to possible surgery tomorrow Visit type - Emergency Visit Emergency Visit: Yes ED Registration Date: 08/03/19 Care time: The patient presented to the Emergency Department on the above date and was hospitalized for further evaluation of their emergent condition. - New Patient This patient is new to me today: Yes Date on this admission: 01/24/20 - Critical Care Critical Care patient: No ATTENDING PHYSICIAN STATEMENT I saw and evaluated the patient. I reviewed the resident's note and discussed the case with the resident. I agree with the resident's findings and plan as documented. SUBJECTIVE: OBJECTIVE: ASSESSMENT AND PLAN:
--- NOTE | 2019-08-03 01:56 | PN ---
Teaching Attending Note Name of Resident: Cesar Lay ATTENDING PHYSICIAN STATEMENT I saw and evaluated the patient. I reviewed the resident's note and discussed the case with the resident. I agree with the resident's findings and plan as documented. SUBJECTIVE: 54 y/o M hx of alcohol dependence, polysubstance abuse, HTN, HLD, seizures admitted to [facility] for alcohol withdrawal managemnt 2 days prior to presentation. Presented complaining of right lower quadrant abdominal pain for about 2 days, has had medial hernia and right for about 2 years previously reducible. Pain initially was severe, about a 9 out of 10 at its worst was exacerbated by Valsalva maneuvers. Reports remote bloody bowel movements and hematemesis. OBJECTIVE: Last Vital Signs Temp Pulse Resp BP Pulse Ox 98.6 F 79 20 121/81 98 08/02/19 19:00 08/02/19 19:46 08/02/19 19:46 08/02/19 19:46 08/02/19 19:46 GENERAL: Well developed, well nourished. Awake and alert. No acute distress. HEENT: Normocephalic, atraumatic. PERRLA, EOMI. No conjunctival pallor. Sclera are non- icteric. NG tube in place NECK: Supple. Full ROM. No JVD. Carotid pulses 2+ and symmetric, without bruits. No thyromegaly. No lymphadenopathy. CARDIOVASCULAR: Regular rate and rhythm. No murmurs, rubs, or gallops. Distal pulses are 2+ and symmetric. PULMONARY: No evidence of respiratory distress. Lungs clear to auscultation bilaterally. No wheezing, rales or rhonchi. ABDOMINAL: Soft. Non-tender. Non-distended. No rebound or guarding. No organomegaly. Normoactive bowel sounds. MUSCULOSKELETAL Normal range of motion at all joints. No bony deformities or tenderness. No CVA tenderness. EXTREMITIES: No cyanosis. No clubbing. No edema. No calf tenderness. Scrotal swellinglikely from inguinal hernia, irreducible SKIN: Warm and dry. Normal capillary refill. No rashes. No jaundice. PSYCHIATRIC: Cooperative. Good eye contact. Appropriate mood and affect. Abnormal Lab Results 08/02/19 08/02/19 20:29 20:29 RBC 3.80 L Hgb 11.5 L Hct 34.8 L Anion Gap 6 L BUN 18.2 H Random Glucose 118 H AST 14 L Total Protein 5.8 L Albumin 3.1 L Imaging studies reviewed CT of abdomen and pelvis showed 14 x 9.2 x 7.4 cm right inguinal region hernia containing cecum/proximal ascending colon, inguinal ileum, normal appendix. Feculent and borderline dilated loops of distal ileum and lower pelvis may represent low-grade partial small bowel obstruction. ASSESSMENT AND PLAN: 54-year-old male with small bowel obstruction visible on CT of abdomen pelvis likely caused by right inguinal region hernia, incarcerated need of urgent surgical repair. Lactate was normal which is reassuring, do not suspect strangulation at this time. Admit to [facility] Surgery consult n.p.o. PT, PTT, type and screen Pain management with morphine IV as needed IV fluid hydration Zofran IV as needed if nausea or vomiting Urine toxicology screen EtOH level #Normocytic anemia #Hypoalbuminemia SCDs for DVT prophylaxis #History of bloody BMs and hematemesis GI consult for EGD and colonoscopy #Seizure disorder on Dilantinchronic alcoholism might affect Dilantin levels. Should reevaluate AED considering this. At this time would discuss with pharmacist for appropriate equivalent IV Dilantin doses.
[2019-08-03] MEDS ORDERED: ACETAMINOPHEN 1000 MG/100 ML VIAL (NON FORMULARY) IVPB PRN ×2 (02:35→17:01)
[2019-08-03] MEDS ORDERED: ONDANSETRON 4 MG/2 ML VIAL IVPUSH SCH (02:45)
[2019-08-03] MEDS ORDERED: ONDANSETRON 4 MG/2 ML VIAL IVPUSH PRN ×2 (03:37→17:01)
[2019-08-03 03:46] LABS: OPIATES, URI NEGATIVE ng/ml (CUTOFF=300); PHENCYCLIDINE,URINE NEGATIVE ng/ml (CUTOFF=25); URINE AMPHETAMINES NEGATIVE ng/ml (CUTOFF=500); URINE BARBITURATES NEGATIVE ng/ml (CUTOFF=200)
[2019-08-03 03:48] LABS: COCAINE, UR POSITIVE ng/ml (CUTOFF=300); METHADONE, UR POSITIVE ng/ml (CUTOFF=300); URINE BENZODIAZEPINES POSITIVE ng/ml (CUTOFF=200)
[2019-08-03] MEDS ORDERED: LORazepam 2 MG/ML SDV VIAL IVPUSH PRN ×3 (05:19→17:01)
[2019-08-03] MEDS ORDERED: amLODIPine BESYLATE 5 MG TABLET (FP) PO ONE (05:22)
[2019-08-03 06:00] VITALS: BMI 21.2
[2019-08-03 08:38] LABS: BASO % 0.3 % (0-2.0); EOS % 1.2 % (0-4.5); HEMATOCRIT 36.2 % (35.4-49); HEMOGLOBIN 12.1 GM/dL (11.7-16.9); LYMPH % 13.1 % (8-40); MCH 30.5 pg (25.7-33.7); MCHC 33.5 g/dl (32.0-35.9); MEAN PLT VOLUME 8.4 fl (7.5-11.1); MONO % 6.6 % (3.8-10.2); NEUT % 78.8 % (42.8-82.8); PLATELET COUNT 223 K/MM3 (134-434); RBC 3.98 M/mm3 (4.00-5.60); RDW 14.1 % (11.9-15.9); WHITE BLOOD COUNT 6.2 K/mm3 (4.0-10.0)
[2019-08-03 08:54] LABS: INR 1.01 (0.83-1.09); PROTHROMBIN TIME (PATIENT) 11.9 SEC (9.7-13.0)
[2019-08-03 08:56] LABS: ACTIVATED PTT 29.6 SECONDS (25.2-36.5)
[2019-08-03 09:10] LABS: BILIRUBIN,TOTAL 0.8 mg/dL (0.2-1); BLOOD UREA NITROGEN 10.3 mg/dL (7-18); CALCIUM 8.4 mg/dL (8.5-10.1); CREATININE 0.7 mg/dL (0.55-1.3); MAGNESIUM 1.8 mg/dL (1.8-2.4); PHOSPHOROUS 4.1 mg/dL (2.5-4.9); POTASSIUM 4.1 mmol/L (3.5-5.1); TOT PROT 5.8 g/dl (6.4-8.2)
[2019-08-03 09:13] LABS: IRON SERUM 27 ug/dL (50-175); TOTAL IRON BINDING CAPACITY 279 ug/dL (250-450)
--- NOTE | 2019-08-03 09:24 | CON.GI ---
Consult Consult Specialty:: GI Referred by:: Hospitalist Service Reason for Consultation:: possible cirrhosis - History of Present Illness Chief Complaint: Right groin pain History of Present Illness: 54M transferred from [facility] (polysubstance abuse of cocaine, heroin, marijuana,alcohol) for evaluation of right groin pain. Asked to evaluate for possible cirrhosis. He has been drinking at least 1 6 pack of beer per day for multiple years. He has never had a colonoscopy. There is no family history of colorectal cancer. 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 Psych: Yes: Other (Polysubstance abuse) - Past Surgical History Additional Surgical History: Left wrist fracture repair - Alcohol/Substance Use Hx Alcohol Use: Yes (1 6 PPD of beer) History of Substance Use: reports: Cocaine, Heroin, Marijuana - Smoking History Smoking history: Current every day smoker Have you smoked in the past 12 months: Yes Aproximately how many cigarettes per day: 10 - Social History Usual Living Arrangement: Alone ADL: Independent Occupation: Unemployed Place of : [facility] History of Recent Travel: No Home Medications - Allergies Allergies/Adverse Reactions: Allergies Allergy/AdvReac Type Severity Reaction Status Date / Time No Known Allergies Allergy Verified 07/31/19 16:52 - Home Medications Home Medications: Ambulatory Orders Terbinafine HCl [Lamisil At] 12 gm TP DAILY 06/13/18 Phenytoin Na Extended [Dilantin -] 100 mg PO QID 07/31/19 Family Medical History Other Family History: Father: : 49: "was sick". Mother: alive: healthy. 2 B / 1 S: Healthy. 2 daughters: Healthy. No family history of colorectal cancer or liver disease Review of Systems - Review of Systems Constitutional: denies: Chills Neck: reports: Tenderness Cardiovascular: denies: Chest Pain Respiratory: denies: Cough Gastrointestinal: reports: Abdominal Pain, Bloating, Constipation, Vomiting. denies: Diarrhea Physical Exam-GI Vital Signs: Vital Signs Temperature 98.4 F 08/03/19 04:50 Pulse Rate 76 08/03/19 04:50 Respiratory Rate 20 08/03/19 04:50 Blood Pressure 154/97 08/03/19 04:50 O2 Sat by Pulse Oximetry (%) 98 08/03/19 04:16 Constitutional: Yes: Calm Eyes: No: Sclera Icterus Cardiovascular: Yes: Regular Rate and Rhythm Respiratory: Yes: CTA Bilaterally Gastrointestinal Inspection: Yes: Other (Mildly protuberant abdomen). No: Scars ...Auscultate: Yes: Normoactive Bowel Sounds ...Palpate: Yes: Tenderness (TTP mid / lower abdomen and right groin: large right indirect inguinal hernia. Tender to palpation) Edema: No (No LE edema) Neurological: Yes: Alert. No: [facility]ix[facility] Labs: Hepatic Panel Total Bilirubin 0.8 mg/dL (0.2-1) 08/03/19 07:15 AST 12 U/L (15-37) L 08/03/19 07:15 ALT 22 U/L (13-61) 08/03/19 07:15 Alkaline Phosphatase 78 U/L (45-117) 08/03/19 07:15 Albumin 3.0 g/dl (3.4-5.0) L 08/03/19 07:15 CBC, BMP 08/03/19 07:15 08/03/19 07:15 INR, PTT INR 1.01 (0.83-1.09) 08/03/19 07:15 Problem List - Problems (1) Hernia, inguinal, right Assessment/Plan: Symptomatic right inguinal hernia with bowel obstruction Current blood work not suggestive of significant advanced liver disease Management of hernia per surgery IV hydration / supportive care Check Screening hepatitis A/B serologies, HCV Antibody Advised patient that he needs to abstain from alcohol and drugs Outpatient colonoscopy for screening purposes when acute issues are resolved Recall as needed Code(s): K40.90 - UNIL INGUINAL HERNIA, W/O OBST OR GANGR, NOT SPCF RECUR
[2019-08-03] MEDS ORDERED: SODIUM CHLORIDE 1,000 ML IV SCH ×2 (10:00→13:09)
[2019-08-03] MEDS ORDERED: PHENYTOIN SODIUM 100 MG/2 ML VIAL IVPB SCH ×2 (10:00→22:00)
[2019-08-03] MEDS ORDERED: PHENYTOIN NA EXTENDED 100 MG CAPSULE (FP) PO SCH (10:00)
--- NOTE | 2019-08-03 13:01 | PN ---
Teaching Attending Note Name of Resident: Adrian Chavez ATTENDING PHYSICIAN STATEMENT I saw and evaluated the patient. I reviewed the resident's note and discussed the case with the resident. I agree with the resident's findings and plan as documented. SUBJECTIVE: No fever or chills. he feels tired adn fatigues. feels nauseous. has no abd pain. feels a little SOB . not very cooperative with interview due to acute illness reports intermittent BRBPR x 6 months. last episode was yesterday. no rectal pain. denies constipation OBJECTIVE: looks ill, NAD. dry MM. NGT in nose. CV: RRR, no MRG, R sided neck veins bulge Lungs: CTAB Abd: hyperactive , high pitched bowel sounds. NT. visible bowel loops : Nl hair distribution. R scrotum is large, with palpable mass ( bowel content) . scrotal content is not reducible . tender . Nl L scrotum with nl testicle . Rectal per resident: not able to complete exam as patient rectal sphincter became tense. no external hemorrhoids . No stool on examiner finger ASSESSMENT AND PLAN: 54 y/o man with h/o polysubstance abuse, HTN, Seizures, HLP, and R inguinal hernia who presented from [facility] with increased pain in R scrotum and was found to have incarcerated R inguinal hernia. 1- Incarcerated R inguinal hernia: - Cont NGT, IVF, and NPO - for surgical repair today - EKG reviewed. sius rhythm. no signs of fluid overload on exam, no signs of ACS. for this type of urgent procedure intermediate risk procedure, no further cardiac w/u is indicated. low risk for dia-op cardiac complications. 2- Intermittent Rectal bleed: suspect hemorrhoidal bleed. unfortunately rectal exam was not completed as above, but no external hemorrhoids were noted. Hb NL. OB neg on admission - Out f/u with GI 3- ETOH withdrawal/Benzo withdrawal : keep NPO - start PRN IV ativan as needed for CIWA of > 9 4- h/o Seizure: cont IV dilantin. d/w pharmacist 5- cocaine use : monitor . DVT PX: Scds pending surgery
[2019-08-03] MEDS ORDERED: LIDOCAINE HCL 1%, 10 MG/ML (20ML VIAL) ONE (13:35)
[2019-08-03] MEDS ORDERED: BENZOIN/ALOE VERA/STORAX/TOLU 58 ML BOTTLE ONE (13:36)
[2019-08-03] MEDS ORDERED: BACITRACIN 15 GM TUBE TOPICAL OINTMENT ONE (13:36)
--- NOTE | 2019-08-03 14:02 | EKG ---
Test Reason : Blood Pressure : / mmHG Vent. Rate : 076 BPM Atrial Rate : 076 BPM P-R Int : 128 ms QRS Dur : 092 ms QT Int : 396 ms P-R-T Axes : 050 032 040 degrees QTc Int : 445 ms NORMAL SINUS RHYTHM MINIMAL VOLTAGE CRITERIA FOR LVH, MAY BE NORMAL VARIANT NONSPECIFIC INTRAVENTRICULAR CONDUCTION DEFECT WHEN COMPARED WITH ECG OF 31-JUL-2019 22:28, NO SIGNIFICANT CHANGE WAS FOUND Confirmed by GEOVANNA ALBA MD ([id number]) on 08/03/2019 2:02:04 PM Referred By: Confirmed By:GEOVANNA ALBA MD
[2019-08-03] MEDS ORDERED: BUPIVACAINE HCL/PF 0.25% (2.5MG/ML) 10 ML VIAL ONE (14:12)
[2019-08-03] MEDS ORDERED: ROCURONIUM BROMIDE 50 MG/5 ML SYRINGE ONE (14:14)
[2019-08-03] MEDS ORDERED: fentaNYL CITRATE 250 MCG/5 ML VIAL ONE (14:14)
[2019-08-03] MEDS ORDERED: KETAMINE HCL 200 MG/20 ML VIAL ONE (14:14)
[2019-08-03] MEDS ORDERED: PROPOFOL 20 ML ONE ×2 (14:14)
[2019-08-03] MEDS ORDERED: MIDAZOLAM HCL 2 MG/2 ML SINGLE DOSE VIAL ONE (14:15)
[2019-08-03] MEDS ORDERED: SODIUM CHLORIDE 0.9% P/F 10 ML VIAL IJ ONE (14:22)
[2019-08-03] MEDS ORDERED: LIDOCAINE HCL/PF 2% SDV 5ML VIAL ONE (14:22)
[2019-08-03] MEDS ORDERED: ceFAZolin SODIUM 1 GM VIAL ONE (14:22)
[2019-08-03] MEDS ORDERED: DEXAMETHASONE SOD PHOSPHATE 4 MG/1 ML VIAL ONE (14:22)
[2019-08-03] MEDS ORDERED: KETOROLAC TROMETHAMINE 30 MG/1 ML VIAL ONE (14:22)
--- NOTE | 2019-08-03 14:37 | CONSULT ---
- Consultation REQUESTING PROVIDER: Arun ELIAS CONSULT REQUEST: We have been asked to surgically evaluate this patient for an incarcerated right inguinal hernia w/sbo. PCP:Abbi Parnell HISTORY OF PRESENT ILLNESS:HARSH who is a 54 year old male with a past medical history of HTN, HLD, polysubstance abuse (cocaine, meth, heroine, and alcohol), and seizures. The patient was sent from [facility] due to his right inguinal hernia. He also notes bloody emesis, diarrhea, and rectal bleeding since # days ago but cannot provide any more details than that; he has had the hernia for # years and it was ? always ? reducible. PMHx: as above PSHx: ? ortho surgery Home Medications Medication Instructions Recorded Terbinafine HCl [Lamisil At] 12 gm TP DAILY 06/13/18 Phenytoin Na Extended [Dilantin -] 100 mg PO QID 07/31/19 Allergies Allergy/AdvReac Type Severity Reaction Status Date / Time No Known Allergies Allergy Verified 07/31/19 16:52 REVIEW OF SYSTEMS: CONSTITUTIONAL: Absent: fever, chills, diaphoresis, generalized weakness, malaise, loss of appetite, weight change CARDIOVASCULAR: Absent: chest pain, syncope, palpitations, irregular heart rate, lightheadedness , peripheral edema RESPIRATORY: Absent: cough, shortness of breath, dyspnea with exertion, wheezing, stridor, hemoptysis GASTROINTESTINAL: Present: abdominal pain, abdominal distension, nausea, vomiting, diarrhea, constipation, melena, hematochezia GENITOURINARY: Absent: dysuria, frequency, urgency, hesitancy, hematuria, flank pain, genital pain MUSCULOSKELETAL: Absent: myalgia, arthralgia, joint swelling, back pain, neck pain SKIN: Absent: rash, itching, pallor HEMATOLOGIC/IMMUNOLOGIC: Absent: easy bleeding, easy bruising, lymphadenopathy NEUROLOGIC: Absent: headache, focal weakness, paresthesias, dizziness, unsteady gait, seizure, mental status changes, bladder or bowel incontinence PSYCHIATRIC: Absent: anxiety, depression, suicidal or homicidal ideation, hallucinations. PHYSICAL EXAM: GENERAL: Awake, alert, and fully oriented, in no acute distress. HEAD: Normal with no signs of trauma. EYES: PERRL, sclera anicteric, conjunctiva clear. NECK: Normal ROM, supple without lymphadenopathy, JVD, or masses. ABDOMEN: Soft, nontender, minimally distended, hypoactive bowel sounds, no guarding, no rebound, no masses. No organomegaly. Incarcerated but not strangulated right inguinal hernia; no left inguinal hernia; genitalia are normal. MUSCULOSKELETAL: Normal ROM at all joints. No bony deformities or tenderness. No CVA tenderness. UPPER EXTREMITIES: 2+ pulses, warm, well-perfused. No cyanosis. Cap refill <2 seconds. No peripheral edema. LOWER EXTREMITIES: 2+ pulses, warm, well-perfused. No calf tenderness. No peripheral edema. NEUROLOGICAL: Slurred speech, gait not observed. PSYCH: Cooperative.Fair eye contact.Inappropriate mood and affect. SKIN: Warm, dry, normal turgor, no rashes or lesions noted. Vital Signs Temperature 99.1 F 08/03/19 08:30 Pulse Rate 77 08/03/19 08:30 Respiratory Rate 20 08/03/19 08:30 Blood Pressure 180/97 H 08/03/19 08:30 O2 Sat by Pulse Oximetry (%) 98 08/03/19 04:16 Lab Results WBC 6.2 K/mm3 (4.0-10.0) 08/03/19 07:15 RBC 3.98 M/mm3 (4.00-5.60) L 08/03/19 07:15 Hgb 12.1 GM/dL (11.7-16.9) 08/03/19 07:15 Hct 36.2 % (35.4-49) 08/03/19 07:15 MCV 91.0 fl (80-96) 08/03/19 07:15 MCHC 33.5 g/dl (32.0-35.9) 08/03/19 07:15 RDW 14.1 % (11.9-15.9) 08/03/19 07:15 Plt Count 223 K/MM3 (134-434) 08/03/19 07:15 Sodium 138 mmol/L (136-145) 08/03/19 07:15 Potassium 4.1 mmol/L (3.5-5.1) 08/03/19 07:15 Chloride 104 mmol/L (98-107) 08/03/19 07:15 Carbon Dioxide 29 mmol/L (21-32) 08/03/19 07:15 Anion Gap 5 MMOL/L (8-16) L 08/03/19 07:15 BUN 10.3 mg/dL (7-18) 08/03/19 07:15 Creatinine 0.7 mg/dL (0.55-1.3) 08/03/19 07:15 Random Glucose 95 mg/dL (74-106) 08/03/19 07:15 Calcium 8.4 mg/dL (8.5-10.1) L 08/03/19 07:15 Blood Type O POSITIVE 08/02/19 20:40 Antibody Screen Negative 08/02/19 20:40 INR 1.01 (0.83-1.09) 08/03/19 07:15 Imaging w/u reviewed IMP: incarcerated RIH w/partial sbo PLAN: For repair incarcerated RIH w/ mesh; r/b/t/a's d/w the patient and informed consent obtained. Christopher Sheridan MD FACS
--- NOTE | 2019-08-03 14:50 | PN ---
Physical Exam: SUBJECTIVE: Patient seen and examined at bedside. This AM he is experiencing abdominal pain. He relates pain to active hernia. He has not vomited. OBJECTIVE: Vital Signs Period Temp Pulse Resp BP Sys/Mathis Pulse Ox Last 24 Hr 98.4 F-99.1 F 67-79 16-20 121-180/59-97 98-99 GENERAL: AOx3, in no acute distress. HEAD: NCAT EYES: ALBA, EOMI, conjunctiva clear. ENT: Ears normal, nares patent with NGT in place, oropharynx clear without exudates. Moist mucous membranes. NECK: Normal range of motion, supple without lymphadenopathy, JVD, or masses. LUNGS: CTAB. No wheezes, and no crackles. No accessory muscle use. HEART: RRR s1 s2 ABDOMEN: Soft, BS present in all 4 quadrants, TTP on RLQ but no guarding or rigidity, RIGHT inguinal hernia, borborigmi in scrotal sac, non-reducible. TOMY: No grossly visible hemorrhoids, incomplete exam as clenched sphincter did not allow further assessment. MUSCULOSKELETAL: No bony deformities or tenderness. No CVA tenderness. UPPER EXTREMITIES: 2+ pulses, warm, well-perfused. No cyanosis. No clubbing. No peripheral edema. LOWER EXTREMITIES: 2+ pulses, warm, well-perfused. No calf tenderness. No peripheral edema. NEUROLOGICAL: No focal deficits. Cranial nerves II-XII intact. Normal speech. Gait not appreciated. PSYCHIATRIC: Cooperative. Good eye contact. Appropriate mood and affect. SKIN: Warm, dry, normal turgor, no rashes or lesions noted, normal capillary refill. Laboratory Results - last 24 hr 08/02/19 08/02/19 08/02/19 20:15 20:29 20:29 WBC 6.5 RBC 3.80 L Hgb 11.5 L Hct 34.8 L MCV 91.7 MCH 30.2 MCHC 32.9 RDW 14.1 Plt Count 220 MPV 8.6 Absolute Neuts (auto) 4.7 Neutrophils % 72.0 Lymphocytes % 17.6 Monocytes % 8.1 Eosinophils % 1.5 Basophils % 0.8 Nucleated RBC % 0 PT with INR INR PTT (Actin FS) Sodium 139 Potassium 4.1 Chloride 105 Carbon Dioxide 28 Anion Gap 6 L BUN 18.2 H Creatinine 0.8 Est GFR (CKD-EPI)AfAm 117.38 Est GFR (CKD-EPI)NonAf 101.27 Random Glucose 118 H Lactic Acid Calcium 8.5 Phosphorus Magnesium Iron TIBC Iron Saturation Unsaturated IBC Total Bilirubin 0.2 AST 14 L ALT 23 Alkaline Phosphatase 87 Total Protein 5.8 L Albumin 3.1 L Urine Color Yellow Urine Appearance Clear Urine pH 5.5 Ur Specific Newton 1.027 Urine Protein Negative Urine Glucose (UA) Negative Urine Ketones Negative Urine Blood Negative Urine Nitrite Negative Urine Bilirubin Negative Urine Urobilinogen 0.2 Ur Leukocyte Esterase Negative Stool Occult Blood Opiates Screen Methadone Screen Barbiturate Screen Phencyclidine Screen Ur Amphetamines Screen MDMA (Ecstasy) Screen Benzodiazepines Screen Cocaine Screen U Marijuana (THC) Screen Alcohol, Quantitative Blood Type Antibody Screen 08/02/19 08/02/19 08/02/19 20:29 20:29 20:29 WBC RBC Hgb Hct MCV MCH MCHC RDW Plt Count MPV Absolute Neuts (auto) Neutrophils % Lymphocytes % Monocytes % Eosinophils % Basophils % Nucleated RBC % PT with INR 11.30 INR 0.96 PTT (Actin FS) 33.9 Sodium Potassium Chloride Carbon Dioxide Anion Gap BUN Creatinine Est GFR (CKD-EPI)AfAm Est GFR (CKD-EPI)NonAf Random Glucose Lactic Acid 1.2 Calcium Phosphorus Magnesium Iron TIBC Iron Saturation Unsaturated IBC Total Bilirubin AST ALT Alkaline Phosphatase Total Protein Albumin Urine Color Urine Appearance Urine pH Ur Specific Newton Urine Protein Urine Glucose (UA) Urine Ketones Urine Blood Urine Nitrite Urine Bilirubin Urine Urobilinogen Ur Leukocyte Esterase Stool Occult Blood Negative Opiates Screen Methadone Screen Barbiturate Screen Phencyclidine Screen Ur Amphetamines Screen MDMA (Ecstasy) Screen Benzodiazepines Screen Cocaine Screen U Marijuana (THC) Screen Alcohol, Quantitative Blood Type Antibody Screen 08/02/19 08/03/19 08/03/19 20:40 03:00 03:00 WBC RBC Hgb Hct MCV MCH MCHC RDW Plt Count MPV Absolute Neuts (auto) Neutrophils % Lymphocytes % Monocytes % Eosinophils % Basophils % Nucleated RBC % PT with INR INR PTT (Actin FS) Sodium Potassium Chloride Carbon Dioxide Anion Gap BUN Creatinine Est GFR (CKD-EPI)AfAm Est GFR (CKD-EPI)NonAf Random Glucose Lactic Acid Calcium Phosphorus Magnesium Iron TIBC Iron Saturation Unsaturated IBC Total Bilirubin AST ALT Alkaline Phosphatase Total Protein Albumin Urine Color Urine Appearance Urine pH Ur Specific Newton Urine Protein Urine Glucose (UA) Urine Ketones Urine Blood Urine Nitrite Urine Bilirubin Urine Urobilinogen Ur Leukocyte Esterase Stool Occult Blood Opiates Screen Negative Methadone Screen Positive A* Barbiturate Screen Negative Phencyclidine Screen Negative Ur Amphetamines Screen Negative MDMA (Ecstasy) Screen Negative Benzodiazepines Screen Positive A* Cocaine Screen Positive A* U Marijuana (THC) Screen Negative Alcohol, Quantitative < 3 Blood Type O POSITIVE Antibody Screen Negative 08/03/19 08/03/19 08/03/19 07:15 07:15 07:15 WBC 6.2 RBC 3.98 L Hgb 12.1 Hct 36.2 MCV 91.0 MCH 30.5 MCHC 33.5 RDW 14.1 Plt Count 223 MPV 8.4 Absolute Neuts (auto) 4.9 Neutrophils % 78.8 Lymphocytes % 13.1 D Monocytes % 6.6 Eosinophils % 1.2 Basophils % 0.3 Nucleated RBC % 0 PT with INR 11.90 INR 1.01 PTT (Actin FS) 29.6 Sodium 138 Potassium 4.1 Chloride 104 Carbon Dioxide 29 Anion Gap 5 L BUN 10.3 Creatinine 0.7 Est GFR (CKD-EPI)AfAm 124.00 Est GFR (CKD-EPI)NonAf 106.99 Random Glucose 95 Lactic Acid Calcium 8.4 L Phosphorus 4.1 Magnesium 1.8 Iron TIBC Iron Saturation Unsaturated IBC Total Bilirubin 0.8 AST 12 L ALT 22 Alkaline Phosphatase 78 Total Protein 5.8 L Albumin 3.0 L Urine Color Urine Appearance Urine pH Ur Specific Newton Urine Protein Urine Glucose (UA) Urine Ketones Urine Blood Urine Nitrite Urine Bilirubin Urine Urobilinogen Ur Leukocyte Esterase Stool Occult Blood Opiates Screen Methadone Screen Barbiturate Screen Phencyclidine Screen Ur Amphetamines Screen MDMA (Ecstasy) Screen Benzodiazepines Screen Cocaine Screen U Marijuana (THC) Screen Alcohol, Quantitative Blood Type Antibody Screen 08/03/19 07:15 WBC RBC Hgb Hct MCV MCH MCHC RDW Plt Count MPV Absolute Neuts (auto) Neutrophils % Lymphocytes % Monocytes % Eosinophils % Basophils % Nucleated RBC % PT with INR INR PTT (Actin FS) Sodium Potassium Chloride Carbon Dioxide Anion Gap BUN Creatinine Est GFR (CKD-EPI)AfAm Est GFR (CKD-EPI)NonAf Random Glucose Lactic Acid Calcium Phosphorus Magnesium Iron 27 L TIBC 279 Iron Saturation 9 L Unsaturated IBC 252 Total Bilirubin AST ALT Alkaline Phosphatase Total Protein Albumin Urine Color Urine Appearance Urine pH Ur Specific Newton Urine Protein Urine Glucose (UA) Urine Ketones Urine Blood Urine Nitrite Urine Bilirubin Urine Urobilinogen Ur Leukocyte Esterase Stool Occult Blood Opiates Screen Methadone Screen Barbiturate Screen Phencyclidine Screen Ur Amphetamines Screen MDMA (Ecstasy) Screen Benzodiazepines Screen Cocaine Screen U Marijuana (THC) Screen Alcohol, Quantitative Blood Type Antibody Screen Active Medications Acetaminophen (Ofirmev Injection -) 1,000 mg IVPB Q6H PRN PRN Reason: PAIN LEVEL 6-10 Stop: 08/05/19 08:45 Benzocaine/Menthol (Cepacol Lozenge -) 1 each MM PRN PRN PRN Reason: SORE THROAT Last Admin: 08/04/19 01:32 Dose: 1 each Heparin Sodium (Porcine) (Heparin -) 5,000 unit SQ TID [facility] Last Admin: 08/04/19 13:23 Dose: 5,000 unit Sodium Chloride (Normal Saline -) 1,000 mls @ 75 mls/hr IV ASDIR [facility] Last Admin: 08/03/19 19:45 Dose: 0 mls Lorazepam (Ativan Injection -) 1 mg IVPUSH Q6H PRN PRN Reason: WITHDRAWAL(CONT SUBST) Ondansetron HCl (Zofran Injection) 4 mg IVPUSH Q6H PRN PRN Reason: NAUSEA AND/OR VOMITING Phenytoin Sodium (Dilantin Injection -) 150 mg IVPB BID [facility] Thiamine HCl (Vitamin B1 Injection -) 100 mg IM DAILY [facility] Last Admin: 08/04/19 13:22 Dose: 100 mg ASSESSMENT/PLAN: 54 y/o man with h/o HTN, HLD, and polysubstance abuse (etoh, benzodiazepines, cocaine) c/o abdominal pain. Imaging demonstrates SBO 2/2 RIGHT incarcerated inguinal hernia. # RIGHT inguinal hernia with SBO - For surgery today - Maintain NGT # Rectal bleed - Poss hemorrhoidal bleed - Hb 13.5 - FOBT NEG - F/u out-pt with GI # Polysubstance abuse - Etoh, benzodiapines, cocaine - IF CIWA > 9, ativan PRN - Given h/o seizure, cont IV phenytoin # F/E/N - NS - Cont. to monitor - NPO for surgery # DVT prophylaxis - SCD # Disposition - Med/surg Adrian Chavez MD Visit type - Emergency Visit Emergency Visit: No - New Patient This patient is new to me today: Yes Date on this admission: 08/03/19 - Critical Care Critical Care patient: No ATTENDING PHYSICIAN STATEMENT I saw and evaluated the patient. I reviewed the resident's note and discussed the case with the resident. I agree with the resident's findings and plan as documented. SUBJECTIVE: OBJECTIVE: ASSESSMENT AND PLAN:
[2019-08-03] MEDS ORDERED: ceFAZolin 2 GRAM PREMIX BAG IVPB ONE (14:59)
[2019-08-03] MEDS ORDERED: NEOSTIGMINE METHYLSULFATE 0.5 MG/ML - 10 ML MDV ONE (16:35)
[2019-08-03] MEDS ORDERED: GLYCOPYRROLATE 0.2 MG/1 ML VIAL ONE (16:36)
[2019-08-03] MEDS ORDERED: HYDROmorphone HCl 2 MG/ML VIAL IVPUSH PRN (16:59)
[2019-08-03] MEDS ORDERED: LACTATED RINGERS SOLUTION 1,000 ML IV SCH (17:00)
[2019-08-03] MEDS ORDERED: LABETALOL HCL 5 MG/1 ML (100MG/20 ML VIAL) ONE (17:10)
[2019-08-03] MEDS ORDERED: ACETAMINOPHEN INJECTION 100 ML IVPB ONE (18:29)
[2019-08-03] MEDS: SODIUM CHLORIDE 1,000 ML IV SCH (19:45)
[2019-08-03] MEDS ORDERED: PT OWN MED DRAWER 7, Y5N ONE (22:18)
[2019-08-03] MEDS ORDERED: BENZOCAINE/MENTH/CETYLPYRD CL 1 EACH LOZENGE MM PRN (23:39)
[2019-08-04] MEDS ORDERED: ACETAMINOPHEN 1000 MG/100 ML VIAL (NON FORMULARY) IVPB PRN (08:45)
[2019-08-04] MEDS ORDERED: PHENYTOIN SODIUM 100 MG/2 ML VIAL IVPB SCH (09:37)
--- NOTE | 2019-08-04 09:46 | PN ---
Teaching Attending Note Name of Resident: Adrian Chavez ATTENDING PHYSICIAN STATEMENT I saw and evaluated the patient. I reviewed the resident's note and discussed the case with the resident. I agree with the resident's findings and plan as documented. SUBJECTIVE: He is hungry an wants to eat. denies any Abd pain, denies pain in groin. Had flatus. no N/V . no OB or CP. OBJECTIVE: NAD. looks upset and complains , partially cooperates with exam. CV: RRR, no MRG. Lungs: CTAB. Abd: Nl BS, NT, ND. a dressing on R groin with significant in R scrotum size. ASSESSMENT AND PLAN: 54 y/o man with h/o polysubstance abuse, HTN, Seizures, HLP, and R inguinal hernia who presented from [facility] with increased pain in R scrotum and was found to have incarcerated R inguinal hernia. 1- Incarcerated R inguinal hernia with SBO: Now resolved . POD 1 S/p repair and mesh placement - patient is hungry, and had flatus . Will ask surgery team if he can go on a diet. if not will change IVF to D5NS. - check electrolytes 2- Intermittent Rectal bleed: suspect hemorrhoidal bleed. No recurrence. Stable HB as of yesterday - Out f/u with GI for colo 3- ETOH withdrawal/Benzo withdrawal : No signs of withdrawal today -if he is allowed to take po, then will change PRN Ativan to po 4- h/o Seizure: IV dilantin . home dose confirmed 100 TID. will adjust IV dose 5- cocaine use: monitor . DVT PX: Scds . start Heparin SQ. monitor for any signs of bleed ASSESSMENT AND PLAN:
[2019-08-04] MEDS ORDERED: THIAMINE HCL 200 MG/2 ML VIAL IM SCH (10:00)
--- NOTE | 2019-08-04 12:19 | OP ---
Operative Note - Note: Operative Date: 08/03/19 Pre-Operative Diagnosis: incarcerated right inguinal hernia Operation: repair incarcerated right inguinal hernia w/mesh Findings: viable bowel; no bloody peritoneal fluid; large sac extending into the scrotum. Post-Operative Diagnosis: Same as Pre-op Surgeon: Christopher Sheridan Md Do Resident Urgent Care: Evangelista Abdalla Anesthesiologist/PSYCHOLOGY PHYSICIAN: Anthony Quiñonez Anesthesia: General Specimens Removed: hernia sac Estimated Blood Loss (mls): 25
--- NOTE | 2019-08-04 12:21 | PN ---
Progress Note (short form) - Note Progress Note: Attending Surgeon POD#1 Patient was combative and argumentative and beligerant post op; he removed the NGT and demanded food VSS AF abdo-soft; flat and non tender; dressing c/d/i; genitalia are unremarkable. IMP: stable post op PLAN: Clear liquid diet/ambulate/advance diet as tolerated. Christopher Sheridan MD FACS
[2019-08-04] MEDS: THIAMINE HCL 200 MG/2 ML VIAL IM SCH (13:22)
[2019-08-04] MEDS: HEPARIN NA (PORCINE) 5,000 UNITS/ML 1ML VIAL SQ SCH ×2 (13:23→21:23)
--- NOTE | 2019-08-04 14:13 | PN ---
Physical Exam: SUBJECTIVE: Patient seen and examined at bedside. Overnight the pt removed his own NG tube. This AM he reports that he is very hungry. OBJECTIVE: Vital Signs Temp Pulse Resp BP Pulse Ox 98.7 F 94 H 18 128/87 98 08/04/19 12:00 08/04/19 12:00 08/04/19 12:00 08/04/19 12:00 08/04/19 21:00 GENERAL: AOx3, in no acute distress. HEAD: NCAT EYES: ALBA, EOMI, conjunctiva clear. ENT: Ears normal, nares patent with NGT in place, oropharynx clear without exudates. Moist mucous membranes. NECK: Normal range of motion, supple without lymphadenopathy, JVD, or masses. LUNGS: CTAB. No wheezes, and no crackles. No accessory muscle use. HEART: RRR s1 s2 ABDOMEN: Soft, BS present in all 4 quadrants, surgical dressing is clean and dry. MUSCULOSKELETAL: No bony deformities or tenderness. No CVA tenderness. UPPER EXTREMITIES: 2+ pulses, warm, well-perfused. No cyanosis. No clubbing. No peripheral edema. LOWER EXTREMITIES: 2+ pulses, warm, well-perfused. No calf tenderness. No peripheral edema. NEUROLOGICAL: No focal deficits. Cranial nerves II-XII intact. Normal speech. Gait not appreciated. PSYCHIATRIC: Cooperative. Good eye contact. Appropriate mood and affect. SKIN: Warm, dry, normal turgor, no rashes or lesions noted, normal capillary refill. Laboratory Results - last 24 hr 08/03/19 07:15 Sodium 138 Potassium 4.1 Chloride 104 Carbon Dioxide 29 Anion Gap 5 L BUN 10.3 Creatinine 0.7 Est GFR (CKD-EPI)AfAm 124.00 Est GFR (CKD-EPI)NonAf 106.99 Random Glucose 95 Calcium 8.4 L Phosphorus 4.1 Magnesium 1.8 Total Bilirubin 0.8 AST 12 L ALT 22 Alkaline Phosphatase 78 Total Protein 5.8 L Albumin 3.0 L Vitamin B12 483 Serum Folate 10 Active Medications Acetaminophen (Ofirmev Injection -) 1,000 mg IVPB Q6H PRN PRN Reason: PAIN LEVEL 6-10 Stop: 08/05/19 08:45 Benzocaine/Menthol (Cepacol Lozenge -) 1 each MM PRN PRN PRN Reason: SORE THROAT Last Admin: 08/04/19 01:32 Dose: 1 each Heparin Sodium (Porcine) (Heparin -) 5,000 unit SQ TID [facility] Last Admin: 08/04/19 21:23 Dose: Not Given Sodium Chloride (Normal Saline -) 1,000 mls @ 75 mls/hr IV ASDIR [facility] Last Admin: 08/04/19 20:44 Dose: 75 mls/hr Lorazepam (Ativan Injection -) 1 mg IVPUSH Q6H PRN PRN Reason: WITHDRAWAL(CONT SUBST) Ondansetron HCl (Zofran Injection) 4 mg IVPUSH Q6H PRN PRN Reason: NAUSEA AND/OR VOMITING Phenytoin Sodium (Dilantin Injection -) 150 mg IVPB BID [facility] Thiamine HCl (Vitamin B1 Injection -) 100 mg IM DAILY [facility] Last Admin: 08/04/19 13:22 Dose: 100 mg ASSESSMENT/PLAN: 54 y/o man with h/o HTN, HLD, and polysubstance abuse (etoh, benzodiazepines, cocaine) c/o abdominal pain. Imaging demonstrates SBO 2/2 RIGHT incarcerated inguinal hernia. # RIGHT inguinal hernia with SBO repaired with mesh, POD 1 - Trial clear liquid diet - F/u electrolytes # Rectal bleed - Poss hemorrhoidal bleed - Hb 13.5 - FOBT NEG - F/u out-pt with GI # Polysubstance abuse - Etoh, benzodiapines, cocaine - IF CIWA > 9, ativan PRN - Given h/o seizure, cont IV phenytoin # Seizure d/o - Dilantin 100 mg PO TID and for IV: 150 mg IV BID # F/E/N - NS - Cont. to monitor - Clear liquid diet # DVT prophylaxis - SCD # Disposition - Med/surg Adrian Chavez MD Visit type - Emergency Visit Emergency Visit: No - New Patient This patient is new to me today: No - Critical Care Critical Care patient: No ATTENDING PHYSICIAN STATEMENT I saw and evaluated the patient. I reviewed the resident's note and discussed the case with the resident. I agree with the resident's findings and plan as documented. SUBJECTIVE: OBJECTIVE: ASSESSMENT AND PLAN:
[2019-08-04] MEDS: SODIUM CHLORIDE 1,000 ML IV SCH ×2 (17:59→20:44)
[2019-08-05] MEDS: HEPARIN NA (PORCINE) 5,000 UNITS/ML 1ML VIAL SQ SCH ×3 (05:53→21:28)
[2019-08-05 08:51] LABS: HEMATOCRIT 41.3 % (35.4-49); HEMOGLOBIN 13.7 GM/dL (11.7-16.9); MCH 30.1 pg (25.7-33.7); MCHC 33.2 g/dl (32.0-35.9); MEAN CELL VOLUME 90.5 fl (80-96); MEAN PLT VOLUME 8.4 fl (7.5-11.1); PLATELET COUNT 272 K/MM3 (134-434); RBC 4.57 M/mm3 (4.00-5.60); RDW 13.8 % (11.9-15.9)
[2019-08-05] MEDS ORDERED: PT OWN MED DRAWER 7, Y5N ONE ×2 (09:00→21:27)
[2019-08-05 09:20] LABS: BILIRUBIN,TOTAL 1.4 mg/dL (0.2-1); BLOOD UREA NITROGEN 12.2 mg/dL (7-18); CALCIUM 8.9 mg/dL (8.5-10.1); CREATININE 0.6 mg/dL (0.55-1.3); POTASSIUM 3.7 mmol/L (3.5-5.1); TOT PROT 6.7 g/dl (6.4-8.2)
[2019-08-05] MEDS: THIAMINE HCL 200 MG/2 ML VIAL IM SCH (10:42)
[2019-08-05] MEDS: PHENYTOIN NA EXTENDED 100 MG CAPSULE (FP) PO SCH ×3 (10:43→21:27)
--- NOTE | 2019-08-05 13:09 | PN ---
Progress Note (short form) - Note Progress Note: Attending Surgeon POD#2 No c/o; tolerated liquids and had a BM VSS AF abdo-soft; flat and non tender; incision c/d/i; genitalia OK IMP:doing well PLAN: Avance to regular diet and if tolerated can be d/c'ed to office f/u next week. Christopher Sheridan MD FACS
[2019-08-05] MEDS ORDERED: LORazepam 0.5 MG TABLET PO PRN (14:58)
--- NOTE | 2019-08-05 15:06 | PN ---
Progress Note (short form) - Note Progress Note: Subjective: no pain in abdomen , tolerated diet Objective: Vital Signs: Last Vital Signs Temp Pulse Resp BP Pulse Ox 98.7 F 94 H 18 128/87 98 08/04/19 12:00 08/04/19 12:00 08/04/19 12:00 08/04/19 12:00 08/04/19 21:00 Laboratory Results - last 24 hr 08/05/19 08/05/19 08:30 08:30 WBC 9.0 RBC 4.57 Hgb 13.7 Hct 41.3 MCV 90.5 MCH 30.1 MCHC 33.2 RDW 13.8 Plt Count 272 D MPV 8.4 Sodium 138 Potassium 3.7 Chloride 102 Carbon Dioxide 29 Anion Gap 7 L BUN 12.2 Creatinine 0.6 Est GFR (CKD-EPI)AfAm 132.11 Est GFR (CKD-EPI)NonAf 113.99 Random Glucose 127 H Calcium 8.9 Total Bilirubin 1.4 H AST 27 ALT 29 Alkaline Phosphatase 78 Total Protein 6.7 Albumin 3.0 L Physical Exam: NAD. CV: RRR, no MRG. Lungs: CTAB. Abd: Nl BS, NT, ND. a dressing on R groin with significant in R scrotum size. ASSESSMENT AND PLAN: 54 y/o man with h/o polysubstance abuse, HTN, Seizures, HLP, and R inguinal hernia who presented from [facility] with increased pain in R scrotum and was found to have incarcerated R inguinal hernia. 1- Incarcerated R inguinal hernia with SBO: Now resolved . POD 2 S/p repair and mesh placement - tolerated regular diet . dc IVF - f/u with Dr. Sheridan as out pt 2- Intermittent Rectal bleed: suspect hemorrhoidal bleed. No recurrence. Stable HB - Out f/u with GI for colo 3- ETOH withdrawal/Benzo withdrawal : No signs of withdrawal . did not require any benzos since admission 4- h/o Seizure:cont home dilantin 5- cocaine use: monitor . Spoke to EDITOR MAP Carlotta form [facility], she indicates no need for detox any more and accepts patient for rehab. will check for bed availability. if not, then can dc patient home and he can check in to rehab. Visit type - Emergency Visit Emergency Visit: Yes ED Registration Date: 08/03/19 Care time: The patient presented to the Emergency Department on the above date and was hospitalized for further evaluation of their emergent condition. - New Patient This patient is new to me today: No - Critical Care Critical Care patient: No
[2019-08-06] MEDS: PHENYTOIN NA EXTENDED 100 MG CAPSULE (FP) PO SCH ×2 (05:29→15:16)
[2019-08-06] MEDS: HEPARIN NA (PORCINE) 5,000 UNITS/ML 1ML VIAL SQ SCH ×2 (05:29→13:34)
[2019-08-06] MEDS ORDERED: FOLIC ACID 1 MG TABLET (FP) PO SCH (10:00)
[2019-08-06] MEDS ORDERED: THIAMINE HCL 100 MG TABLET (FP) PO SCH (10:00)
[2019-08-06 10:30] LABS: MAGNESIUM 2.2 mg/dL (1.8-2.4)
--- NOTE | 2019-08-06 11:10 | SURG ---
Surgery Underwriting Technician Note Underwriting Technician: Evangelista Abdalla PA-C Date of Service: 08/03/19 Diagnosis: incarcerated right inguinal hernia Procedure: repair incarcerated right inguinal hernia w/mesh I was present for the entirety of the operative procedure. For further detail, please refer to operative report. Visit type - Case Type Case Type: ED Admission - Emergency Emergency Visit: Yes ED Registration Date: 08/03/19 Care time: The patient presented to the Emergency Department on the above date and was hospitalized for further evaluation of their emergent condition. - New patient This patient is new to me today: No - Critical Care Critical Care patient: No
[2019-08-06] MEDS ORDERED: METHADONE HCL 10 MG TABLET PO ONE (13:05)
--- NOTE | 2019-08-06 13:13 | DS ---
Physical Exam: SUBJECTIVE: Patient seen and examined OBJECTIVE: Vital Signs Period Temp Pulse Resp BP Sys/Mathis Pulse Ox Last 24 Hr 97.5 F-98.4 F 84-103 20-20 127-158/84-88 PHYSICAL EXAM GENERAL: The patient is awake, alert, and fully oriented, in no acute distress. HEAD: Normal with no signs of trauma. EYES: PERRL, extraocular movements intact, sclera anicteric, conjunctiva clear. ENT: Ears normal, nares patent, oropharynx clear without exudates, moist mucous membranes. NECK: Trachea midline, full range of motion, supple. LUNGS: Breath sounds equal, clear to auscultation bilaterally, no wheezes, no crackles, no accessory muscle use. HEART: Regular rate and rhythm, S1, S2 without murmur, rub or gallop. ABDOMEN: Soft, nontender, nondistended, normoactive bowel sounds, no guarding, no rebound, no hepatosplenomegaly, no masses. EXTREMITIES: 2+ pulses, warm, well-perfused, no edema. NEUROLOGICAL: Cranial nerves II through XII grossly intact. Normal speech, gait not observed. PSYCH: Normal mood, normal affect. SKIN: Warm, dry, normal turgor, no rashes or lesions noted. LABS Laboratory Results - last 24 hr 08/06/19 09:30 Phosphorus 3.0 Magnesium 2.2 HOSPITAL COURSE: Date of Admission:08/03/19 Date of Discharge: 08/06/19 Discharge Summary Problems reviewed: Yes Reason For Visit: RIGHT INGUINAL HERNIA, PARTIAL SMALL BOWEL Current Active Problems Alcohol dependence with uncomplicated withdrawal (Acute) Incarcerated inguinal hernia (Acute) Partial small bowel obstruction (Acute) Small bowel obstruction (Acute) Alcohol dependence (Chronic) Hernia, inguinal, right (Chronic) Opioid dependence on agonist therapy (Chronic) Condition: Improved - Instructions Diet, Activity, Other Instructions: You were admitted to the hospital for abdminal pain. You had a hernia that was evaluated by the surgeon and you underwent surgery to repair. You are stable for discharge. Continue taking your home medications as directed Take thiamine, folic acid and multivitamin daily. Follow up with your primary care physician within one -two days after discharge. A referral has been provided. Follow up with Dr. Sheridan within one week of discharge. A referral has been provided. Please see surgical discharge instructions below. Return to the nearest emergency department if you experience worsening symptoms , subjective fevers, chills, shortness of breath, chest pain, palpitations, abdominal pain, nausea, vomiting, any trauma or loss of consciousness. continue going to your methadone clinic to receive methadone Dr. Sheridan Discharge Instructions Dear SHAUN MATHEWS, Post Operative Instructions Physical activity Resume your normal everyday activity as tolerated no heavy lifting or exercise until seen by your surgeon. You may walk unlimited amounts of and climb stairs. You may resume driving the car when you feel safe and comfortable behind the wheel. Wound care keep surgery site clean and dry at all time. pet dry after shower. franky to be removed by Dr. Sheridan when you see him in office in 1 week . Diet There are no dietary restrictions. Eat healthy, high-fiber foods. Drink 6 to 8 glasses of liquid each day. This will assist in keeping your bowels are regular. Pain management You may take Tylenol or acetaminophen or Ibuprofen (for example, Motrin, Advil etc.) Call Dr. Sheridan for any of the following: Severe pain not relieved by medication Fever of 101 or higher Excessive bleeding or drainage on dressing Inability to urinate Call the office at [phone] for a post operative appointment in 7 - 10 days. Continue your phenytoine after discharge Avoid alcohol and cocaine and any other drugs. [facility] when a bed is available Referrals: Christopher Sheridan MD [Staff Physician] - 1 Week Disposition: HOME - Home Medications Comprehensive Discharge Medication List: Ambulatory Orders Phenytoin Na Extended [Dilantin -] 100 mg PO TID 07/31/19 Folic Acid - 1 mg PO DAILY 30 Days #30 tablet 08/06/19 Methadone [Dolophine -] 90 mg PO DAILY #1 tab.disper MDD 90 mg 08/06/19 Multivitamin [One-Daily Multi-Vitamin] 1 each PO DAILY 30 Days #30 tablet Thiamine HCl [Vitamin B1 -] 100 mg PO DAILY 30 Days #30 tablet 08/06/19 ATTENDING PHYSICIAN STATEMENT I saw and evaluated the patient. I reviewed the resident's note and discussed the case with the resident. I agree with the resident's findings and plan as documented. SUBJECTIVE: OBJECTIVE: ASSESSMENT AND PLAN:
[2019-08-06] MEDS ORDERED: METHADONE 80 MG, METHADONE 10 MG PO ONE (13:15)
--- NOTE | 2019-08-06 13:15 | PN ---
Teaching Attending Note Name of Resident: Adrian Chavez ATTENDING PHYSICIAN STATEMENT I saw and evaluated the patient. I reviewed the resident's note and discussed the case with the resident. I agree with the resident's findings and plan as documented. SUBJECTIVE: No fever or chills. No MORRIS , no pain. denies N/V. had 2 BMS today . requests his methadone OBJECTIVE: NAD. CV: RRR, no MRG. Lungs: CTAB. Abd: Nl BS, NT, ND. a dressing on R groin with significant in R scrotum size. ASSESSMENT AND PLAN: 54 y/o man with h/o polysubstance abuse, HTN, Seizures, HLP, and R inguinal hernia who presented from [facility] with increased pain in R scrotum and was found to have incarcerated R inguinal hernia. 1- Incarcerated R inguinal hernia with SBO: Now resolved . POD 3 S/p repair - tolerated regular diet . - f/u with Dr. Sheridan as out pt 2- Intermittent Rectal bleed: suspect hemorrhoidal bleed. No recurrence. Stable HB - Out f/u with GI for colo 3- ETOH withdrawal/Benzo withdrawal: No signs of withdrawal . h/o opioid abuse. add methadone to his regime. could not reach his methadone clinic but confirmed with [facility] records 4- h/o Seizure:cont home dilantin dc home. [facility] called, no beds for rehab available.
[2019-08-06] MEDS ORDERED: METHADONE HCL 10 MG TABLET ONE (13:30)
[2019-08-06 15:03] VITALS: BP 136/87; PULSE 109; TEMP 98.3
[2019-08-06] MEDS ORDERED: PT OWN MED DRAWER 7, Y5N ONE (15:15)
--- NOTE | 2019-08-06 15:18 | DS ---
Physical Exam: SUBJECTIVE: Patient seen and examined at bedside. There were no acute events overnight. This AM he offers no new complaints. He is hungry and wants to eat danish. OBJECTIVE: Vital Signs Period Temp Pulse Resp BP Sys/Mathis Pulse Ox Last 24 Hr 97.5 F-98.3 F 103-109 20-20 136-158/87-88 PHYSICAL EXAM GENERAL: AOx3, in no acute distress. HEAD: NCAT EYES: ALBA, EOMI, conjunctiva clear. ENT: Ears normal, nares patent with NGT in place, oropharynx clear without exudates. Moist mucous membranes. NECK: Normal range of motion, supple without lymphadenopathy, JVD, or masses. LUNGS: CTAB. No wheezes, and no crackles. No accessory muscle use. HEART: RRR s1 s2 ABDOMEN: Soft, BS present in all 4 quadrants, surgical dressing is clean and dry. MUSCULOSKELETAL: No bony deformities or tenderness. No CVA tenderness. UPPER EXTREMITIES: 2+ pulses, warm, well-perfused. No cyanosis. No clubbing. No peripheral edema. LOWER EXTREMITIES: 2+ pulses, warm, well-perfused. No calf tenderness. No peripheral edema. NEUROLOGICAL: No focal deficits. Cranial nerves II-XII intact. Normal speech. Gait not appreciated. PSYCHIATRIC: Cooperative. Good eye contact. Appropriate mood and affect. SKIN: Warm, dry, normal turgor, no rashes or lesions noted, normal capillary refill. LABS Laboratory Results - last 24 hr 08/06/19 09:30 Phosphorus 3.0 Magnesium 2.2 CBC, BMP 08/05/19 08:30 08/05/19 08:30 HOSPITAL COURSE: Date of Admission:08/03/19 54 y/o man with h/o HTN, HLD, and polysubstance abuse (etoh, benzodiazepines, cocaine) c/o abdominal pain admitted for surgical attention of SBO 2/2 RIGHT incarcerated inguinal hernia. He tolerated surgery and post up diet well. Rectal bleed noted, likely 2/2 hemorrhoidal bleed. FOBT NEG. He was advised to f /u out-pt with GI. Given h/o seizure, IV phenytoin was continued and Dilantin 100 mg PO TID. Pt dc to rehab. Date of Discharge: 08/06/19 Adrian Chavez MD Minutes to complete discharge: 40 Discharge Summary Problems reviewed: Yes Reason For Visit: RIGHT INGUINAL HERNIA, PARTIAL SMALL BOWEL Current Active Problems Alcohol dependence with uncomplicated withdrawal (Acute) Incarcerated inguinal hernia (Acute) Partial small bowel obstruction (Acute) Small bowel obstruction (Acute) Alcohol dependence (Chronic) Hernia, inguinal, right (Chronic) Opioid dependence on agonist therapy (Chronic) Condition: Improved - Instructions Diet, Activity, Other Instructions: You were admitted to the hospital for abdominal pain. You had a hernia that was evaluated by the surgeon and you underwent surgery to repair. You are stable for discharge. Continue taking your home medications as directed Take thiamine, folic acid and multivitamin daily. Follow up with your primary care physician within one -two days after discharge. A referral has been provided. Follow up with Dr. Sheridan within one week of discharge. A referral has been provided. Please see surgical discharge instructions below. Return to the nearest emergency department if you experience worsening symptoms , subjective fevers, chills, shortness of breath, chest pain, palpitations, abdominal pain, nausea, vomiting, any trauma or loss of consciousness. continue going to your methadone clinic to receive methadone You can follow with Dr. Cao clinic for primary care . or continue to follow withyour primary doctor Please follow with Dr. Romero from GI, for your rectal bleed . you need a colonoscopy Dr. Sheridan Discharge Instructions Dear SHAUN MATHEWS, Post Operative Instructions Physical activity Resume your normal everyday activity as tolerated no heavy lifting or exercise until seen by your surgeon. You may walk unlimited amounts of and climb stairs. You may resume driving the car when you feel safe and comfortable behind the wheel. Wound care keep surgery site clean and dry at all time. pet dry after shower. franky to be removed by Dr. Sheridan when you see him in office in 1 week . Diet There are no dietary restrictions. Eat healthy, high-fiber foods. Drink 6 to 8 glasses of liquid each day. This will assist in keeping your bowels are regular. Pain management You may take Tylenol or acetaminophen or Ibuprofen (for example, Motrin, Advil etc.) Call Dr. Sheridan for any of the following: Severe pain not relieved by medication Fever of 101 or higher Excessive bleeding or drainage on dressing Inability to urinate redness around the surgical site Call the office at [phone] for a post operative appointment in 7 - 10 days. Continue your phenytoine after discharge Avoid alcohol and cocaine and any other drugs. [facility] rehab when a bed is available Referrals: Juan Cao MD [Staff Physician] - Christopher Sheridan MD [Staff Physician] - 1 Week Sesar Romero DO [Staff Physician] - Disposition: I.P. ALCOHOL/SUBS ABUSE REHAB - Home Medications Comprehensive Discharge Medication List: Ambulatory Orders Phenytoin Na Extended [Dilantin -] 100 mg PO TID 07/31/19 Folic Acid - 1 mg PO DAILY 30 Days #30 tablet 08/06/19 Methadone [Dolophine -] 90 mg PO DAILY #1 tab.disper MDD 90 mg 08/06/19 Multivitamin [One-Daily Multi-Vitamin] 1 each PO DAILY 30 Days #30 tablet Thiamine HCl [Vitamin B1 -] 100 mg PO DAILY 30 Days #30 tablet 08/06/19 This patient is new to me today: No Emergency Visit: No Critical Care patient: No - Discharge Referral Referred to [facility] No ATTENDING PHYSICIAN STATEMENT I saw and evaluated the patient. I reviewed the resident's note and discussed the case with the resident. I agree with the resident's findings and plan as documented. SUBJECTIVE: OBJECTIVE: ASSESSMENT AND PLAN:
--- NOTE | 2019-08-07 14:18 | OP ---
DATE OF OPERATION: 08/04/2019 PREOPERATIVE DIAGNOSIS: Incarcerated right inguinal hernia. POSTOPERATIVE DIAGNOSIS: Incarcerated right inguinal hernia. PROCEDURE: Repair of incarcerated right inguinal hernia with mesh. SURGEON: Christopher Sheridan MD [employer] JOBS: [employer] ANESTHESIA: General. OPERATIVE FINDINGS: There was viable bowel in the incarcerated hernia. There was no bloody peritoneal fluid and there was a large sac that extended into the scrotum. The rest of the findings were unremarkable. PROCEDURE: The patient was placed on the operating table in the supine position , and after the induction of general anesthesia, the patient's right groin, lower abdomen, and genitalia were prepped with ChloraPrep and draped in sterile fashion. A right groin incision was mapped out and the area infiltrated with 1% Xylocaine and 0.5% Marcaine in equal concentration. Incision was made with the scalpel and taken down through skin and subcutaneous tissue and Demarco fascia. The external oblique fascia was identified and opened proximally and distally in the direction of its fibers and through the external ring. Next, the hernia was partially reduced from the scrotum into the inguinal canal and the sac identified. The sac was opened and the contents in the sac consisted of the cecum, appendix, and a portion of ileum which were all viable and reduced into the peritoneal cavity. High ligation of the sac was carried out with a 2-0 Vicryl suture and redundant sac was excised and sent for pathological examination. The distal sac was left in place. Next, the floor of the inguinal canal was repaired by fashioning a piece of Parietex ProGrip mesh and anchoring it the pubic tubercle shelving edge and conjoined tendon, respectively. A keyhole was created for the cord structures and the tails with the mesh border above the level of the internal ring and crossed and anchored there with interrupted 2-0 Prolene. Copious irrigation was carried out with normal saline and hemostasis secured with electrocautery. Hemostasis was verified again, and then the incision was closed by returning the cord structures and nerves to their normal anatomic position, and closing the external oblique fascia with continuous 2-0 Vicryl recreating the external ring. Demarco fascia was reapproximated with interrupted 3-0 Vicryl and interrupted 2-0 Vicryl in the deep dermis with interrupted 3-0 Vicryl on the skin edges with surgical franky. Dry, sterile dressings were placed and the procedure terminated at this point. The patient aroused from general anesthesia , and transferred to the postanesthesia care unit, in stable condition, awake, and alert. ESTIMATED BLOOD LOSS: 25 mL. REPLACEMENTS: Crystalloid. DRAINS: None. SPECIMEN: Hernia sac to Pathology. I, Christopher Sheridan, was physically present in the operating room from the time the patient was placed on the operating room table until he was transferred to the postanesthesia care unit in [facility]. MD SABRINA Miranda/[id number] MTDD
--- NOTE | 2019-08-08 19:36 | PATH ---
Surgical Pathology Report Patient Name: SHAUN MATHEWS Med. Rec. #: [id number] /Age/Gender: 1965 (Age: 54) / M Account: [id number] Location: [facility] MED/SURG Taken: 08/03/2019 Received: 08/06/2019 Reported: 08/08/2019 Physicians: Christopher Sheridan MD Specimen(s) Received HERNIA SAC Clinical History Right inguinal hernia Postoperative diagnosis: Incarcerated right inguinal hernia repair with mesh Final Diagnosis HERNIA SAC, EXCISION: CONSISTENT WITH HERNIA SAC. Electronically Signed Leoncio Carroll M.D. Gross Description Received in formalin labeled "hernia sac," are two portions of fibromembranous tissue measuring 4.5 x 3.5 x 0.2 cm and 14 x 6.0 x 0.4 cm, respectively. Sections reveal fibroadipose tissue focal hemorrhage. No mass is noted. Car Salesman sections submitted in cassette. STEPHANIE/08/07/2019 lazaro/08/07/2019
== END 2019-08-06 17:01 | disposition other institution (70) | DRG 228 ==
LOC: JER 18:41 → JERBED 08-03 00:29 → J8W 08-03 04:32
PROVIDERS: ADMIT Internal Medicine; ATTEND Internal Medicine
PROC: 0YU50JZ Supplement Right Inguinal Region with Synthetic Substitute, Open Approach (ICD-10-PCS; principal; 2019-08-04)
DX: K40.30 Unilateral inguinal hernia, with obstruction, without gangrene, not specified as recurrent (principal); F10.20 Alcohol dependence, uncomplicated; F14.20 Cocaine dependence, uncomplicated; F12.20 Cannabis dependence, uncomplicated; D64.9 Anemia, unspecified; K62.5 Hemorrhage of anus and rectum; G40.909 Epilepsy, unspecified, not intractable, without status epilepticus; F11.20 Opioid dependence, uncomplicated; K70.10 Alcoholic hepatitis without ascites; K70.30 Alcoholic cirrhosis of liver without ascites; F17.210 Nicotine dependence, cigarettes, uncomplicated; I10 Essential (primary) hypertension; E78.5 Hyperlipidemia, unspecified
CPT/HCPCS: 36415; 71045-TC-FY; 74177-TC; 80053; 80307; 81003; 82272; 82607; 82746; 83540; 83550; 83605; 83735; 84100; 85025; 85027; 85610; 85730; 86850; 86900; 86901; 87086; 88302-TC; 93005; 93010; 94760; 99284-25; J0131; J1644; J7030

== ENCOUNTER 2019-08-06 16:43 | Inpatient (IN) | payer OTHER ==
[2019-08-06 17:42] VITALS: BMI 22.1
--- NOTE | 2019-08-06 18:08 | HP ---
[facility] Rehab Assess/Revision - Admission History Admitted to Rehab from: Medical/Surgical - Vital signs Vital Signs: Vital Signs Period Temp Pulse Resp BP Sys/Mathis Pulse Ox Last 24 Hr 97.1 F 82 18 120/81 - Findings Comments/Additional Findings: 54 yo PMH of Polysubstance abuse ( alcohol, cocaine, heroin, BZOs), HTN, HLD, Seizure d/o ,glaucoma, depression presents for rehab evaluation. Pt was discharged from [facility] for R inguinal hernia repair. Patient reports that his last detox was here for the period 08/29/2018 - 09/02/2018. Pt states he has had withdrawal seizures , has had blackouts in past. He reports 12 years of sobriety(while in custodial). He is on Methadone 90mg tablet oral daily maintenance therapy. Pt denies any suicidall thoughts . Pt states that he wants to be sober to get a job. Inpatient Rehab Admission - Rehab Decision to Admit Inpatient rehab admission?: Yes - Initial Determination Are CD services needed?: Yes Free of communicable disease: Yes Not in need of hospitalization: No - Rehab Admission Criteria Previous failed treatment: Yes Poor recovery environment: Yes Comorbidities: No Lacks judgement: No Patient is meeting Inpatient Rehab admission criteria:: Yes
[2019-08-06] MEDS ORDERED: hydrOXYzine PAMOATE 25 MG CAPSULE (FP) PO PRN (19:28)
[2019-08-06] MEDS ORDERED: MAGNESIUM HYDROX 2400MG/30ML ORAL SUSPENSION 30 ML CUP PO PRN (19:28)
[2019-08-06] MEDS ORDERED: P-EPHED 60MG/TRIPROLIDI 2.5MG TABLET PO PRN (19:28)
[2019-08-06] MEDS ORDERED: guaiFENesin 200 MG/10 ML 10 ML UNIT-DOSE CUPS PO PRN (19:28)
[2019-08-06] MEDS ORDERED: LOPERAMIDE HCL 2 MG CAPSULE PO PRN (19:28)
[2019-08-06] MEDS ORDERED: MAGNESIUM CITRATE 300 ML BOTTLE PO PRN (19:28)
[2019-08-06] MEDS ORDERED: MENTHOL/PHENOL 1 EACH UD MM PRN (19:28)
[2019-08-06] MEDS: THIAMINE HCL 100 MG TABLET (FP) PO SCH (21:20)
[2019-08-06] MEDS: MELATONIN 5 MG TABLETS PO PRN (21:20)
[2019-08-06] MEDS: PHENYTOIN NA EXTENDED 100 MG CAPSULE (FP) PO SCH (21:20)
[2019-08-07] MEDS ORDERED: METHADONE HCL 10 MG TABLET PO SCH (06:00)
[2019-08-07] MEDS: PHENYTOIN NA EXTENDED 100 MG CAPSULE (FP) PO SCH ×3 (06:36→21:10)
[2019-08-07] MEDS ORDERED: METHADONE HCL 10 MG TABLET ONE ×2 (09:36→10:48)
--- NOTE | 2019-08-07 10:32 | PN ---
[facility] Progress Note Note: Pt is a 54 y/o male with a hx of Poly MONO-alcohol, cocaine,heroin,Bnzo admitted to rehab 5 startex on 08/06/19 from [facility]. Pt was in detox 3 north from 07/31/19 to befor transfer to [facility] ER, admitted to unit and had abdominal surgery then discharged on 08/06/19 back to [facility] due to right side abdominal pain. Pt is currently S/P right Inguinal Hernia repair. Pt is on MMTP- S.T.A.R.T program with 90 mg po daily. PMHx:HTN,HLD,Seizure Disorder(last episode 07/15/18), Glaucoma, use of cane. Psych Hx: Depression. pt reports he has a primary care doctor Dr. Bogdan Costa(pt not sure) at [place], [place]. Vital Signs - 24 hr 08/06/19 08/06/19 08/07/19 17:29 19:45 00:30 Temperature 97.1 F L 97.2 F L Pulse Rate 82 82 Respiratory 18 17 20 Rate Blood Pressure 120/81 122/75 08/07/19 08/07/19 03:30 06:49 Temperature 97.5 F L Pulse Rate 79 Respiratory 18 18 Rate Blood Pressure 127/76 Alert o x 3 nad oob ambulating Abdomen:flat,+bs,LLQ with 8 stitches/franky, clean with no drainage. extremities/skin:no edema;bunions, bilateral, 2nd toe gooseneck shape. A/P s/p right inguinal Hernia Repair s/p detox Maintain safety Abdominal wound care Po hydration as tolerated Seizure precautions
[2019-08-07] MEDS ORDERED: METHADONE HCL 40 MG DISPERSABLE TABLET ONE (10:48)
[2019-08-07] MEDS: METHADONE 80 MG, METHADONE 10 MG PO SCH (10:53)
[2019-08-07] MEDS: PRENATAL VITAMINS W/ FOLIC ACID TABLET (FP) PO SCH (10:55)
[2019-08-07] MEDS: IBUPROFEN 400 MG TABLET (FP) PO PRN (10:56)
[2019-08-07] MEDS: MELATONIN 5 MG TABLETS PO PRN (21:10)
[2019-08-07] MEDS: THIAMINE HCL 100 MG TABLET (FP) PO SCH (21:10)
[2019-08-07] MEDS: TOLNAFTATE 1% CREAM 15 GM TUBE TP SCH (21:11)
[2019-08-08] MEDS ORDERED: METHADONE HCL 10 MG TABLET ONE (04:27)
[2019-08-08] MEDS ORDERED: METHADONE HCL 40 MG DISPERSABLE TABLET ONE (04:27)
[2019-08-08] MEDS: METHADONE 80 MG, METHADONE 10 MG PO SCH (06:16)
[2019-08-08] MEDS: PHENYTOIN NA EXTENDED 100 MG CAPSULE (FP) PO SCH ×3 (06:16→21:20)
[2019-08-08] MEDS: IBUPROFEN 400 MG TABLET (FP) PO PRN ×3 (06:59→21:21)
[2019-08-08] MEDS: PRENATAL VITAMINS W/ FOLIC ACID TABLET (FP) PO SCH (10:08)
[2019-08-08] MEDS: ACETAMINOPHEN 325 MG TABLET (FP) PO PRN ×2 (10:08→18:47)
--- NOTE | 2019-08-08 10:10 | PN ---
[facility] Progress Note (SOAP) Subjective: patient reporting a sensation of burning at surgical site Objective: P/E: General: no apparent distress Skin: surgical site, upper right and left quad of abd. Wound edges approximated , no drainage, redness, swelling or other s/s of infection noted ABD: +BS, non-tender, non-distended. 08/08/19 10:06 Assessment: s/p hernia repair 08/08/19 10:08 Plan: Burning sensation may be the results of healing process. Ice Pack application, prn. Ensure, supplemental nutrition ordered. Nursing aware, wound assessment and wound care as needed.
[2019-08-08] MEDS: TOLNAFTATE 1% CREAM 15 GM TUBE TP SCH ×2 (10:11→21:22)
[2019-08-08] MEDS: THIAMINE HCL 100 MG TABLET (FP) PO SCH (21:21)
[2019-08-08] MEDS: MELATONIN 5 MG TABLETS PO PRN (21:21)
[2019-08-09] MEDS ORDERED: METHADONE HCL 40 MG DISPERSABLE TABLET ONE (04:19)
[2019-08-09] MEDS ORDERED: METHADONE HCL 10 MG TABLET ONE (04:19)
[2019-08-09] MEDS: PHENYTOIN NA EXTENDED 100 MG CAPSULE (FP) PO SCH ×3 (06:22→21:20)
[2019-08-09] MEDS: METHADONE 80 MG, METHADONE 10 MG PO SCH (06:23)
[2019-08-09] MEDS: IBUPROFEN 400 MG TABLET (FP) PO PRN ×2 (06:25→21:23)
[2019-08-09] MEDS: ACETAMINOPHEN 325 MG TABLET (FP) PO PRN (10:12)
[2019-08-09] MEDS: PRENATAL VITAMINS W/ FOLIC ACID TABLET (FP) PO SCH (10:12)
[2019-08-09] MEDS: TOLNAFTATE 1% CREAM 15 GM TUBE TP SCH ×2 (13:23→21:21)
[2019-08-09] MEDS: ARTIFICIAL TEARS (POLYVINYL ALCOHOL) OPTH DROPS OU SCH ×2 (14:24→21:20)
[2019-08-09] MEDS: THIAMINE HCL 100 MG TABLET (FP) PO SCH (21:20)
[2019-08-09] MEDS: MELATONIN 5 MG TABLETS PO PRN (21:22)
[2019-08-10] MEDS ORDERED: METHADONE HCL 10 MG TABLET ONE (04:11)
[2019-08-10] MEDS ORDERED: METHADONE HCL 40 MG DISPERSABLE TABLET ONE (04:11)
[2019-08-10] MEDS: METHADONE 80 MG, METHADONE 10 MG PO SCH (06:34)
[2019-08-10] MEDS: IBUPROFEN 400 MG TABLET (FP) PO PRN ×2 (06:35→21:06)
[2019-08-10] MEDS: PHENYTOIN NA EXTENDED 100 MG CAPSULE (FP) PO SCH ×3 (06:35→21:06)
[2019-08-10] MEDS: ARTIFICIAL TEARS (POLYVINYL ALCOHOL) OPTH DROPS OU SCH ×3 (06:38→21:07)
[2019-08-10] MEDS: PRENATAL VITAMINS W/ FOLIC ACID TABLET (FP) PO SCH (10:22)
[2019-08-10] MEDS: TOLNAFTATE 1% CREAM 15 GM TUBE TP SCH ×2 (10:22→21:08)
[2019-08-10] MEDS: ACETAMINOPHEN 325 MG TABLET (FP) PO PRN (10:23)
--- NOTE | 2019-08-10 15:35 | PN ---
[facility] Progress Note Note: As per discharge instruction from Marnie Antoine after Right Inguinal Hernia Surgery, franky to be removed by Dr. Sheridan when pt sees him in office in 1 week after surgery. Surgery was done on 08/04/19. Discussed with resident Dr. Aleja Magallanes at [facility] who will follow up with staple removal. Pt is stable. Vital Signs - 24 hr 08/10/19 08/10/19 08/10/19 00:30 03:30 07:01 Temperature 98.5 F Pulse Rate 81 Respiratory 18 18 18 Rate Blood Pressure 135/95 Dilantin level at [facility] admission on 08/02/19 was 0.5 Pt on Dilantin 100 mg po TID Repeat Dilantin level in the morning to check for current level.
[2019-08-10] MEDS: THIAMINE HCL 100 MG TABLET (FP) PO SCH (21:06)
[2019-08-10] MEDS: MELATONIN 5 MG TABLETS PO PRN (21:06)
[2019-08-11] MEDS ORDERED: METHADONE HCL 10 MG TABLET ONE (05:12)
[2019-08-11] MEDS ORDERED: METHADONE HCL 40 MG DISPERSABLE TABLET ONE (05:12)
[2019-08-11] MEDS: ARTIFICIAL TEARS (POLYVINYL ALCOHOL) OPTH DROPS OU SCH ×3 (05:59→21:05)
[2019-08-11] MEDS: PHENYTOIN NA EXTENDED 100 MG CAPSULE (FP) PO SCH ×3 (06:00→21:05)
[2019-08-11] MEDS: IBUPROFEN 400 MG TABLET (FP) PO PRN ×2 (06:01→21:06)
[2019-08-11] MEDS: METHADONE 80 MG, METHADONE 10 MG PO SCH (06:02)
[2019-08-11] MEDS: PRENATAL VITAMINS W/ FOLIC ACID TABLET (FP) PO SCH (09:45)
[2019-08-11] MEDS: TOLNAFTATE 1% CREAM 15 GM TUBE TP SCH ×2 (09:45→21:06)
--- NOTE | 2019-08-11 16:38 | PN ---
[facility] Progress Note Note: pt on Dilantin, unclear compliance w/ meds prior to admission . repeat Dilantin level 08/13/2019
[2019-08-11] MEDS: THIAMINE HCL 100 MG TABLET (FP) PO SCH (21:05)
[2019-08-12] MEDS: ARTIFICIAL TEARS (POLYVINYL ALCOHOL) OPTH DROPS OU SCH ×3 (06:05→21:03)
[2019-08-12] MEDS: METHADONE 80 MG, METHADONE 10 MG PO SCH (06:07)
[2019-08-12] MEDS ORDERED: METHADONE HCL 10 MG TABLET ONE (06:07)
[2019-08-12] MEDS: IBUPROFEN 400 MG TABLET (FP) PO PRN ×2 (06:07→18:34)
[2019-08-12] MEDS ORDERED: METHADONE HCL 40 MG DISPERSABLE TABLET ONE (06:07)
[2019-08-12] MEDS: PHENYTOIN NA EXTENDED 100 MG CAPSULE (FP) PO SCH ×3 (06:11→21:03)
[2019-08-12] MEDS: PRENATAL VITAMINS W/ FOLIC ACID TABLET (FP) PO SCH (10:00)
[2019-08-12] MEDS: TOLNAFTATE 1% CREAM 15 GM TUBE TP SCH ×2 (10:00→21:04)
[2019-08-12] MEDS: ACETAMINOPHEN 325 MG TABLET (FP) PO PRN (10:01)
[2019-08-12] MEDS: THIAMINE HCL 100 MG TABLET (FP) PO SCH (21:03)
[2019-08-12] MEDS: MELATONIN 5 MG TABLETS PO PRN (21:03)
[2019-08-13] MEDS ORDERED: METHADONE HCL 10 MG TABLET ONE (04:22)
[2019-08-13] MEDS ORDERED: METHADONE HCL 40 MG DISPERSABLE TABLET ONE (04:22)
[2019-08-13] MEDS: METHADONE 80 MG, METHADONE 10 MG PO SCH (06:38)
[2019-08-13] MEDS: IBUPROFEN 400 MG TABLET (FP) PO PRN ×2 (06:40→21:08)
[2019-08-13] MEDS: PHENYTOIN NA EXTENDED 100 MG CAPSULE (FP) PO SCH ×3 (06:40→21:07)
[2019-08-13] MEDS: ARTIFICIAL TEARS (POLYVINYL ALCOHOL) OPTH DROPS OU SCH ×3 (06:53→21:07)
[2019-08-13] MEDS: PRENATAL VITAMINS W/ FOLIC ACID TABLET (FP) PO SCH (10:08)
[2019-08-13] MEDS: ACETAMINOPHEN 325 MG TABLET (FP) PO PRN (10:08)
[2019-08-13] MEDS: TOLNAFTATE 1% CREAM 15 GM TUBE TP SCH ×2 (11:00→21:08)
--- NOTE | 2019-08-13 16:45 | CONSULT ---
Consultation: REQUESTING PROVIDER: Internal Medicine Service CONSULT REQUEST: We have been asked to medically evaluate this patient for staple removal. HISTORY OF PRESENT ILLNESS: Pt is a 54 y/o M with PMH polysubstance abuse, alcoholic hepatitis, HTN, HLD, seizures, and an inguinal hernia who is in inpatient rehab for alcohol, cocaine , heroin, BZOs. On interview, pt states that he had his surgery and everything went well. However, last night, he had a nightmare and twisted his body abruptly and had discomfort at the site of the hernia. He states he does not know how the size of the hernia now compares to the size prior to the pain last. Presently, he has no pain, nausea, vomiting, diarrhea, sweating. He feels well. Tolerating diet. Had a BM this morning. Scant blood on TP consistent with his presentation in hospital. He has an appointment to go for colonoscopy. Fahad were removed. Incision clean dry and intact and without erythema, oozing , discharge. REVIEW OF SYSTEMS: CONSTITUTIONAL: Absent: fever, chills, diaphoresis, generalized weakness, malaise, loss of appetite, weight change HEENT: Absent: rhinorrhea, nasal congestion, throat pain, throat swelling, difficulty swallowing, mouth swelling, ear pain, eye pain, visual changes CARDIOVASCULAR: Absent: chest pain, syncope, palpitations, irregular heart rate, lightheadedness , peripheral edema RESPIRATORY: Absent: cough, shortness of breath, dyspnea with exertion, orthopnea, wheezing, stridor, hemoptysis GASTROINTESTINAL: Absent: abdominal pain, abdominal distension, nausea, vomiting, diarrhea, constipation, melena, hematochezia GENITOURINARY: Absent: dysuria, frequency, urgency, hesitancy, hematuria, flank pain, genital pain MUSCULOSKELETAL: Absent: myalgia, arthralgia, joint swelling, back pain, neck pain SKIN: Absent: rash, itching, pallor HEMATOLOGIC/IMMUNOLOGIC: Absent: easy bleeding, easy bruising, lymphadenopathy, frequent infections ENDOCRINE: Absent: unexplained weight gain, unexplained weight loss, heat intolerance, cold intolerance NEUROLOGIC: Absent: headache, focal weakness or paresthesias, dizziness, unsteady gait, seizure, mental status changes, bladder or bowel incontinence PSYCHIATRIC: Absent: anxiety, depression, suicidal or homicidal ideation, hallucinations. PHYSICAL EXAMINATION Vital Signs - 24 hr 08/13/19 08/13/19 08/13/19 03:30 06:50 10:00 Temperature 98.3 F Pulse Rate 84 90 Respiratory 16 18 Rate Blood Pressure 153/98 100/58 L Gen: AAOx3, NAD HEENT: NCAT, eomi, moist membranes. Cardio: rrr Pulm: cta Abd: 10 cm RLQ transverse incision - healing well. No erythema, dehiscence, discharge, oozing. Prominent tangerine sized R inguinal hernia present. Nontender. Firm, nonreducible. Ext: no edema Laboratory Results - last 24 hr 08/13/19 08:05 Phenytoin 2.5 Active Medications Generic Name Dose Route Start Last Admin Trade Name Freq PRN Reason Stop Dose Admin Acetaminophen 650 mg 08/06/19 19:28 08/13/19 10:08 Tylenol - PO 650 mg Q4H PRN Administration FEVER Al Hydroxide/Mg Hydroxide 30 ml 08/06/19 19:28 Mylanta Oral Suspension - PO Q6H PRN DYSPEPSIA Artificial Tears 1 drop 08/09/19 14:00 08/13/19 14:33 Artificial Tears OU Not Given TID [facility] Eucalyptus/Menthol/Phenol/Sorbitol 1 each 08/06/19 19:28 Cepastat Lozenge - MM Q4H PRN SORE THROAT Guaifenesin 10 ml 08/06/19 19:28 Robitussin - PO Q6H PRN COUGH Hydroxyzine Pamoate 25 mg 08/06/19 19:28 Vistaril - PO Q4H PRN AGITATION Ibuprofen 400 mg 08/06/19 19:28 08/13/19 06:40 Motrin - PO 400 mg Q6H PRN Administration Pain level 4-6 Loperamide HCl 4 mg 08/06/19 19:28 Imodium - PO Q6H PRN DIARRHEA Magnesium Citrate 300 ml 08/06/19 19:28 Citroma - PO Q48H PRN CONSTIPATION Magnesium Hydroxide 30 ml 08/06/19 19:28 Milk Of Magnesia - PO DAILY PRN CONSTIPATION Melatonin 5 mg 08/06/19 22:00 08/12/19 21:03 Melatonin PO 5 mg HS PRN Administration INSOMNIA Methadone HCl 80 mg/ Methadone 90 mg 08/07/19 09:30 08/13/19 06:38 HCl 10 mg PO 08/14/19 09:29 90 mg DAILY@0600 DEVIN Administration Phenytoin Sodium 100 mg 08/06/19 22:00 08/13/19 14:33 Dilantin - PO 100 mg TID DEVIN Administration Multivit/Folic Acid/Iron 1 tab 08/07/19 10:00 08/13/19 10:08 Vitamins (Sjr) - PO 1 tab DAILY DEVIN Administration Pseudoephedrine/Triprolidine 1 combo 08/06/19 19:28 Actifed - PO TID PRN NASAL CONGESTION Thiamine HCl 100 mg 08/06/19 22:00 08/12/19 21:03 Vitamin B1 - PO 100 mg HS DEVIN Administration Tolnaftate 1 applic 08/07/19 22:00 08/13/19 11:00 Tinactin 1% Cream - TP 1 applic BID DEVIN Administration ASSESSMENT/PLAN: Pt is a 54 y/o M with PMH polysubstance abuse, alcoholic hepatitis, HTN, HLD, seizures, and an inguinal hernia who is in inpatient rehab for alcohol, cocaine , heroin, BZOs. Seen by IM for staple removal. Hernia -Pt will need follow up with surgery. Incision was cdi. [place] removed. -unclear if hernia repair was compromised -No signs of incarceration at this time. Spoke with surgical [employer] [employer]. Agree with outpt follow up for now. -Low threshold to transfer to ED. If pt has nausea, vomiting, abdominal pain/ tenderness, diaphoresis, tachycardia, etc... will transfer to [facility] ED Dispo: We will continue to follow the patient. Thank you for this consultative opportunity. Visit type - Emergency Visit Emergency Visit: No - New Patient This patient is new to me today: Yes Date on this admission: 08/13/19 - Critical Care Critical Care patient: No ATTENDING PHYSICIAN STATEMENT I saw and evaluated the patient. I reviewed the resident's note and discussed the case with the resident. I agree with the resident's findings and plan as documented. SUBJECTIVE: OBJECTIVE: ASSESSMENT AND PLAN:
[2019-08-13] MEDS: MELATONIN 5 MG TABLETS PO PRN (21:07)
[2019-08-13] MEDS: THIAMINE HCL 100 MG TABLET (FP) PO SCH (21:07)
[2019-08-14] MEDS ORDERED: PHENYTOIN NA EXTENDED 100 MG CAPSULE (FP) PO ONE ×2 (01:19→01:38)
--- NOTE | 2019-08-14 01:20 | PN ---
[facility] Progress Note Note: INFORMED BY STAFF NURSE Sonido REYES OF PATIENT DILANTIN LEVEL AT 2400. CLIENT IS PRESENTLY SLEEPING VSS STABLE Laboratory Last Values Phenytoin 2.5 08/13/19 08:05 Vital Signs Temperature 98.3 F 08/13/19 06:50 Pulse Rate 90 08/13/19 10:00 Respiratory Rate 18 08/14/19 00:30 Blood Pressure 100/58 L 08/13/19 10:00 O2 Sat by Pulse Oximetry (%) P- SEIZURE PRECAUTION DILANTIN 100 MG PO STAT FOLLOW UP WITH DILANTIN LEVEL
[2019-08-14] MEDS ORDERED: METHADONE HCL 10 MG TABLET ONE (05:54)
[2019-08-14] MEDS ORDERED: METHADONE HCL 40 MG DISPERSABLE TABLET ONE (05:55)
[2019-08-14] MEDS: ARTIFICIAL TEARS (POLYVINYL ALCOHOL) OPTH DROPS OU SCH ×3 (06:18→21:57)
[2019-08-14] MEDS: PHENYTOIN NA EXTENDED 100 MG CAPSULE (FP) PO SCH ×3 (06:19→21:04)
[2019-08-14] MEDS: METHADONE 80 MG, METHADONE 10 MG PO SCH (06:21)
[2019-08-14] MEDS: IBUPROFEN 400 MG TABLET (FP) PO PRN ×3 (06:23→21:04)
[2019-08-14] MEDS: PRENATAL VITAMINS W/ FOLIC ACID TABLET (FP) PO SCH (10:10)
[2019-08-14] MEDS: TOLNAFTATE 1% CREAM 15 GM TUBE TP SCH ×2 (10:10→21:57)
--- NOTE | 2019-08-14 14:24 | PN ---
[facility] Progress Note Note: Pt c/o excruciating pain and in tears to right lower abdomen. Pt is s/p Right Hernia Surgery, done 08/04/[address] [facility] by Dr. Sheridan. Reports slight nausea but no vomiting. Pt reports he received motrin just as he was c/o the pain to writer producer. Vital Signs - 24 hr 08/14/19 08/14/19 08/14/19 00:30 03:30 06:48 Temperature 97.7 F Pulse Rate 79 Respiratory 18 18 18 Rate Blood Pressure 152/103 H 08/14/19 08/14/19 10:00 14:20 Temperature 98.1 F Pulse Rate 80 87 Respiratory 18 Rate Blood Pressure 113/70 118/67 Laboratory Tests 08/11/19 08/13/19 09:45 08:05 Phenytoin 2.8 2.5 Pt received dilantin 200 mg po x 1 loading dose at 1:48 A.M today(see Provider Shanae's note) Active Medications Generic Name Dose Route Start Last Admin Trade Name Freq PRN Reason Stop Dose Admin Acetaminophen 650 mg 08/06/19 19:28 08/13/19 10:08 Tylenol - PO 650 mg Q4H PRN Administration FEVER Al Hydroxide/Mg Hydroxide 30 ml 08/06/19 19:28 Mylanta Oral Suspension - PO Q6H PRN DYSPEPSIA Artificial Tears 1 drop 08/09/19 14:00 08/14/19 13:58 Artificial Tears OU Not Given TID DEVIN Eucalyptus/Menthol/Phenol/Sorbitol 1 each 08/06/19 19:28 Cepastat Lozenge - MM Q4H PRN SORE THROAT Guaifenesin 10 ml 08/06/19 19:28 Robitussin - PO Q6H PRN COUGH Hydroxyzine Pamoate 25 mg 08/06/19 19:28 Vistaril - PO Q4H PRN AGITATION Ibuprofen 400 mg 08/06/19 19:28 08/14/19 13:59 Motrin - PO 400 mg Q6H PRN Administration Pain level 4-6 Loperamide HCl 4 mg 08/06/19 19:28 Imodium - PO Q6H PRN DIARRHEA Magnesium Citrate 300 ml 08/06/19 19:28 Citroma - PO Q48H PRN CONSTIPATION Magnesium Hydroxide 30 ml 08/06/19 19:28 Milk Of Magnesia - PO DAILY PRN CONSTIPATION Melatonin 5 mg 08/06/19 22:00 08/13/19 21:07 Melatonin PO 5 mg HS PRN Administration INSOMNIA Phenytoin Sodium 100 mg 08/06/19 22:00 08/14/19 13:58 Dilantin - PO 100 mg TID DEVIN Administration Multivit/Folic Acid/Iron 1 tab 08/07/19 10:00 08/14/19 10:10 Vitamins (Sjr) - PO 1 tab DAILY DEVIN Administration Pseudoephedrine/Triprolidine 1 combo 08/06/19 19:28 Actifed - PO TID PRN NASAL CONGESTION Thiamine HCl 100 mg 08/06/19 22:00 08/13/19 21:07 Vitamin B1 - PO 100 mg HS DEVIN Administration Tolnaftate 1 applic 08/07/19 22:00 08/14/19 10:10 Tinactin 1% Cream - TP 1 applic BID DEVIN Administration Alert o x 3 unable to stand straight due to pain but ambulating with cane Cardiac:s1 s2,rrr lungs:cta,ted. Abdomen:+bs,soft,tender to palp right LQ. Incision site healed but slight skin redness with swelling on incision line(??Keloid formation). A/P S/P Hernia repair Acute Abdominal pain Consult w/ Resident Dr. Connor Calhoun who saw and examined patient. MDM: to transfer to ER for further evaluation and treatment. Transfer to the ER for evaluation and treatment via Ambulance. 3:p.m: Nurse Nette Ziegler called to inform writer producer that Dr. Calhoun states that there is possibility that Dr. Sheridan, the surgeon will come to [facility] to see patient and to hold sending to ER for now.
--- NOTE | 2019-08-14 14:28 | PN ---
Progress Note (short form) - Note Progress Note: Was called to see Mr. Rainey around 2 pm because of abdominal pain. I saw the patient earlier today, around noon, and at that time, he felt well. He was eating his lunch and said he was tolerating his diet with no discomfort. He had a BM without blood or difficulty. At 2 PM, pt is complaining of severe abdominal pain radiating to the right hip. Denies nausea, vomiting. VS: 118/67, 87, 98.1F, rr18 Mildly diaphoretic HEENT: NCAT Cor: rrr, normal s1s2 Pulm: Cta Abd: TTP with guarding RLQ/inguinal, prominent indirect inguinal hernia clearly much larger than yesterday. Belly is soft, pos bowel sounds Ext: no edema A/P: Will transfer to [facility] ED. Call placed to [facility]. Awaiting call back.
--- NOTE | 2019-08-14 16:56 | PN ---
Teaching Attending Note Name of Resident: Connor Calhoun ATTENDING PHYSICIAN STATEMENT I saw and evaluated the patient. I reviewed the resident's note and discussed the case with the resident. I agree with the resident's findings and plan as documented. SUBJECTIVE: OBJECTIVE: ASSESSMENT AND PLAN: 1. REcent right lower abdomen frakny/hernia repair, franky removed yesterday, wound clean 2. Bulge in upper portion of right testicle, ? recurrent hernia 3. Dr. Sheridan, the surgeon who operated on pt, will see patient 4. monitor clinically
--- NOTE | 2019-08-14 17:20 | PN ---
Progress Note (short form) - Note Progress Note: Attending Surgeon POD#11 s/p repair incarcerated RIH w/mesh Eating and moving his bowels VSS AF abdo-soft and non tender; incision c/d/i; franky have been removed; both testicles in the scrotum; no tenderness to palpation; post op changes are present and normal; no heamtoma or seroma. IMP: doing well PLAN: PRN surgical f/u; d/w the patient post op changes will resolve w/in 6-12 weeks. Christopher Sheridan MD FACS
[2019-08-14] MEDS: MELATONIN 5 MG TABLETS PO PRN (21:04)
[2019-08-14] MEDS: THIAMINE HCL 100 MG TABLET (FP) PO SCH (21:04)
[2019-08-15] MEDS: PHENYTOIN NA EXTENDED 100 MG CAPSULE (FP) PO SCH ×3 (06:13→21:04)
[2019-08-15] MEDS: ARTIFICIAL TEARS (POLYVINYL ALCOHOL) OPTH DROPS OU SCH ×3 (06:13→21:03)
[2019-08-15] MEDS ORDERED: METHADONE HCL 10 MG TABLET PO SCH (06:15)
[2019-08-15] MEDS: IBUPROFEN 400 MG TABLET (FP) PO PRN ×2 (06:16→21:05)
[2019-08-15] MEDS ORDERED: METHADONE HCL 40 MG DISPERSABLE TABLET ONE (06:23)
[2019-08-15] MEDS ORDERED: METHADONE HCL 10 MG TABLET ONE (06:23)
[2019-08-15] MEDS: METHADONE 80 MG, METHADONE 10 MG PO SCH (06:47)
[2019-08-15] MEDS: PRENATAL VITAMINS W/ FOLIC ACID TABLET (FP) PO SCH (10:05)
[2019-08-15] MEDS: TOLNAFTATE 1% CREAM 15 GM TUBE TP SCH ×2 (10:06→21:04)
[2019-08-15] MEDS: MELATONIN 5 MG TABLETS PO PRN (21:04)
[2019-08-15] MEDS: THIAMINE HCL 100 MG TABLET (FP) PO SCH (21:06)
[2019-08-16] MEDS: ARTIFICIAL TEARS (POLYVINYL ALCOHOL) OPTH DROPS OU SCH ×3 (06:14→21:10)
[2019-08-16] MEDS ORDERED: METHADONE HCL 40 MG DISPERSABLE TABLET ONE (06:14)
[2019-08-16] MEDS ORDERED: METHADONE HCL 10 MG TABLET ONE (06:14)
[2019-08-16] MEDS: METHADONE 80 MG, METHADONE 10 MG PO SCH (06:15)
[2019-08-16] MEDS: PHENYTOIN NA EXTENDED 100 MG CAPSULE (FP) PO SCH ×3 (06:15→21:08)
[2019-08-16] MEDS: IBUPROFEN 400 MG TABLET (FP) PO PRN ×2 (06:16→21:08)
[2019-08-16] MEDS: PRENATAL VITAMINS W/ FOLIC ACID TABLET (FP) PO SCH (10:45)
[2019-08-16] MEDS: TOLNAFTATE 1% CREAM 15 GM TUBE TP SCH ×2 (10:46→21:10)
[2019-08-16] MEDS: MELATONIN 5 MG TABLETS PO PRN (21:08)
[2019-08-16] MEDS: THIAMINE HCL 100 MG TABLET (FP) PO SCH (21:08)
[2019-08-17] MEDS ORDERED: METHADONE HCL 10 MG TABLET ONE (06:22)
[2019-08-17] MEDS ORDERED: METHADONE HCL 40 MG DISPERSABLE TABLET ONE (06:22)
[2019-08-17] MEDS: ARTIFICIAL TEARS (POLYVINYL ALCOHOL) OPTH DROPS OU SCH ×3 (06:27→21:48)
[2019-08-17] MEDS: PHENYTOIN NA EXTENDED 100 MG CAPSULE (FP) PO SCH ×3 (06:28→21:48)
[2019-08-17] MEDS: METHADONE 80 MG, METHADONE 10 MG PO SCH (06:28)
[2019-08-17] MEDS: IBUPROFEN 400 MG TABLET (FP) PO PRN ×2 (06:30→21:49)
[2019-08-17] MEDS: PRENATAL VITAMINS W/ FOLIC ACID TABLET (FP) PO SCH (10:07)
[2019-08-17] MEDS: TOLNAFTATE 1% CREAM 15 GM TUBE TP SCH ×2 (10:08→22:14)
--- NOTE | 2019-08-17 14:18 | PN ---
S Progress Note Note: Dilantin level result: Laboratory Tests 08/11/19 08/13/19 08/16/19 09:45 08:05 09:25 Phenytoin 2.8 2.5 3.0 Alert o x 3 nad oob ambulating to groups and around the unit with cane A/P Hx seizures and currently on Dialntin 100 mg po TID -sub-therapeutic Dilantin 200 mg po now as directed.
[2019-08-17] MEDS: ACETAMINOPHEN 325 MG TABLET (FP) PO PRN (14:24)
[2019-08-17] MEDS ORDERED: PHENYTOIN NA EXTENDED 100 MG CAPSULE (FP) PO ONE (14:30)
--- NOTE | 2019-08-17 15:59 | PN ---
[facility] Progress Note Note: pt came to the bond underwriter about 3:47 P.m and reports difficulty breathing(" sometimes can't catch my breath") and unable to explain how he is feeling. Reports "it's been happening since 3 days and thought it's what i ate because I decreased to 4 meatballs instead of eight". Occasional moaning which is not sustained. Pt is s/p abdominal sx at [facility] on 08/04/[address] Sheridan. Denies chest pain, diaphoresis, headache, nausea or vomiting or diarrhea. Vital Signs - 24 hr 08/17/19 08/17/19 08/17/19 00:30 07:38 10:00 Temperature 98.5 F Pulse Rate 90 94 H Respiratory 18 18 Rate Blood Pressure 134/78 107/57 L Pulse ox: 92 - 93% Active Medications Generic Name Dose Route Start Last Admin Trade Name Freq PRN Reason Stop Dose Admin Acetaminophen 650 mg 08/06/19 19:28 08/17/19 14:24 Tylenol - PO 650 mg Q4H PRN Administration FEVER Al Hydroxide/Mg Hydroxide 30 ml 08/06/19 19:28 Mylanta Oral Suspension - PO Q6H PRN DYSPEPSIA Artificial Tears 1 drop 08/09/19 14:00 08/17/19 14:25 Artificial Tears OU 1 drop TID DEVIN Administration Eucalyptus/Menthol/Phenol/Sorbitol 1 each 08/06/19 19:28 Cepastat Lozenge - MM Q4H PRN SORE THROAT Guaifenesin 10 ml 08/06/19 19:28 Robitussin - PO Q6H PRN COUGH Hydroxyzine Pamoate 25 mg 08/06/19 19:28 Vistaril - PO Q4H PRN AGITATION Ibuprofen 400 mg 08/06/19 19:28 08/17/19 06:30 Motrin - PO 400 mg Q6H PRN Administration Pain level 4-6 Loperamide HCl 4 mg 08/06/19 19:28 Imodium - PO Q6H PRN DIARRHEA Magnesium Citrate 300 ml 08/06/19 19:28 Citroma - PO Q48H PRN CONSTIPATION Magnesium Hydroxide 30 ml 08/06/19 19:28 Milk Of Magnesia - PO DAILY PRN CONSTIPATION Melatonin 5 mg 08/06/19 22:00 08/16/19 21:08 Melatonin PO 5 mg HS PRN Administration INSOMNIA Methadone HCl 80 mg/ Methadone 90 mg 08/15/19 06:30 08/17/19 06:28 HCl 10 mg PO 90 mg DAILY@0600 DEVIN Administration Phenytoin Sodium 100 mg 08/06/19 22:00 08/17/19 14:40 Dilantin - PO 100 mg TID DEVIN Administration Multivit/Folic Acid/Iron 1 tab 08/07/19 10:00 08/17/19 10:07 Vitamins (Sjr) - PO 1 tab DAILY DEVIN Administration Pseudoephedrine/Triprolidine 1 combo 08/06/19 19:28 Actifed - PO TID PRN NASAL CONGESTION Thiamine HCl 100 mg 08/06/19 22:00 08/16/19 21:08 Vitamin B1 - PO 100 mg HS DEVIN Administration Tolnaftate 1 applic 08/07/19 22:00 08/17/19 10:08 Tinactin 1% Cream - TP 1 applic BID DEVIN Administration Pulse ox;92 -93% Room Air Alert o x 2 oob ambulating with steady gait with cane cardiac;s1 s2,rrr lungs;cta,ted. no wheeze or rhonchi abdomen;+bs,soft,nt,nd extremities:no edema. A/P Pt with difficulty breathing s/p recent abdominal sx Resident consult to see pt for evaluation, spoke with resident Dr. jay Calhoun who came to see patient. Transfer to ER if needed after Dr. Calhoun evaluates pt.
--- NOTE | 2019-08-17 16:27 | PN ---
Progress Note (short form) - Note Progress Note: Was called to see patient because he complaint of shortness of breath. On my interview, pt states he ate a big cheeseburger and feels like he can't take a full deep breath because he is full. Denies exertional component. Has never had a DVT or PE. Denies leg pain/swelling. Denies chest pain. No nausea/ vomiting/diarrhea. On physical exam, cariopulmonary exam unremarkable. Lungs clear. No calf tenderness. No erythema. No swelling. Pt sitting comfortably. Vital signs wnl. No hypotension or tachycardia. Pulse ox 93%. Well's score 1.5 (recent surgery). Low probability of PE.
[2019-08-17] MEDS: MELATONIN 5 MG TABLETS PO PRN (21:49)
[2019-08-17] MEDS: THIAMINE HCL 100 MG TABLET (FP) PO SCH (21:49)
[2019-08-18] MEDS ORDERED: METHADONE HCL 40 MG DISPERSABLE TABLET ONE (05:56)
[2019-08-18] MEDS ORDERED: METHADONE HCL 10 MG TABLET ONE (05:56)
[2019-08-18] MEDS: IBUPROFEN 400 MG TABLET (FP) PO PRN ×2 (06:29→21:08)
[2019-08-18] MEDS: PHENYTOIN NA EXTENDED 100 MG CAPSULE (FP) PO SCH ×3 (06:30→21:07)
[2019-08-18] MEDS: METHADONE 80 MG, METHADONE 10 MG PO SCH (06:31)
[2019-08-18] MEDS: ARTIFICIAL TEARS (POLYVINYL ALCOHOL) OPTH DROPS OU SCH ×3 (06:35→21:10)
[2019-08-18] MEDS: ACETAMINOPHEN 325 MG TABLET (FP) PO PRN (09:49)
[2019-08-18] MEDS: PRENATAL VITAMINS W/ FOLIC ACID TABLET (FP) PO SCH (09:49)
[2019-08-18] MEDS: TOLNAFTATE 1% CREAM 15 GM TUBE TP SCH ×2 (09:51→21:09)
[2019-08-18] MEDS: THIAMINE HCL 100 MG TABLET (FP) PO SCH (21:07)
[2019-08-18] MEDS: MELATONIN 5 MG TABLETS PO PRN (21:07)
[2019-08-19] MEDS ORDERED: METHADONE HCL 40 MG DISPERSABLE TABLET ONE (04:20)
[2019-08-19] MEDS ORDERED: METHADONE HCL 10 MG TABLET ONE (04:20)
[2019-08-19] MEDS: IBUPROFEN 400 MG TABLET (FP) PO PRN ×2 (06:20→21:03)
[2019-08-19] MEDS: PHENYTOIN NA EXTENDED 100 MG CAPSULE (FP) PO SCH ×3 (06:21→21:03)
[2019-08-19] MEDS: METHADONE 80 MG, METHADONE 10 MG PO SCH (06:22)
[2019-08-19] MEDS: ARTIFICIAL TEARS (POLYVINYL ALCOHOL) OPTH DROPS OU SCH ×3 (07:49→21:04)
[2019-08-19] MEDS: ACETAMINOPHEN 325 MG TABLET (FP) PO PRN ×2 (09:47→14:14)
[2019-08-19] MEDS: PRENATAL VITAMINS W/ FOLIC ACID TABLET (FP) PO SCH (09:47)
[2019-08-19] MEDS: TOLNAFTATE 1% CREAM 15 GM TUBE TP SCH ×2 (09:48→21:11)
[2019-08-19] MEDS: MELATONIN 5 MG TABLETS PO PRN (21:03)
[2019-08-19] MEDS: THIAMINE HCL 100 MG TABLET (FP) PO SCH (21:03)
[2019-08-20] MEDS ORDERED: METHADONE HCL 10 MG TABLET ONE (06:11)
[2019-08-20] MEDS ORDERED: METHADONE HCL 40 MG DISPERSABLE TABLET ONE (06:11)
[2019-08-20] MEDS: ARTIFICIAL TEARS (POLYVINYL ALCOHOL) OPTH DROPS OU SCH ×3 (06:12→21:02)
[2019-08-20] MEDS: IBUPROFEN 400 MG TABLET (FP) PO PRN ×2 (06:13→21:03)
[2019-08-20] MEDS: PHENYTOIN NA EXTENDED 100 MG CAPSULE (FP) PO SCH ×3 (06:14→21:02)
[2019-08-20] MEDS: METHADONE 80 MG, METHADONE 10 MG PO SCH (06:14)
[2019-08-20] MEDS: PRENATAL VITAMINS W/ FOLIC ACID TABLET (FP) PO SCH (09:57)
[2019-08-20] MEDS: TOLNAFTATE 1% CREAM 15 GM TUBE TP SCH ×2 (09:59→21:03)
[2019-08-20] MEDS: ACETAMINOPHEN 325 MG TABLET (FP) PO PRN (14:08)
[2019-08-20] MEDS: THIAMINE HCL 100 MG TABLET (FP) PO SCH (21:02)
[2019-08-20] MEDS: MELATONIN 5 MG TABLETS PO PRN (21:02)
[2019-08-21] MEDS ORDERED: METHADONE HCL 10 MG TABLET ONE (05:50)
[2019-08-21] MEDS ORDERED: METHADONE HCL 40 MG DISPERSABLE TABLET ONE (05:50)
[2019-08-21] MEDS: METHADONE 80 MG, METHADONE 10 MG PO SCH (05:51)
[2019-08-21] MEDS: ARTIFICIAL TEARS (POLYVINYL ALCOHOL) OPTH DROPS OU SCH ×3 (05:51→21:44)
[2019-08-21] MEDS: IBUPROFEN 400 MG TABLET (FP) PO PRN ×2 (05:52→21:43)
[2019-08-21] MEDS: PHENYTOIN NA EXTENDED 100 MG CAPSULE (FP) PO SCH ×3 (05:55→21:43)
[2019-08-21] MEDS ORDERED: METHADONE HCL 10 MG TABLET PO SCH (06:00)
[2019-08-21] MEDS: PRENATAL VITAMINS W/ FOLIC ACID TABLET (FP) PO SCH (09:52)
[2019-08-21] MEDS: TOLNAFTATE 1% CREAM 15 GM TUBE TP SCH ×2 (09:53→21:44)
[2019-08-21] MEDS: ACETAMINOPHEN 325 MG TABLET (FP) PO PRN (14:13)
[2019-08-21] MEDS: THIAMINE HCL 100 MG TABLET (FP) PO SCH (21:43)
[2019-08-21] MEDS: MELATONIN 5 MG TABLETS PO PRN (21:43)
[2019-08-22] MEDS ORDERED: METHADONE HCL 10 MG TABLET ONE (04:56)
[2019-08-22] MEDS ORDERED: METHADONE HCL 40 MG DISPERSABLE TABLET ONE (04:56)
[2019-08-22] MEDS: IBUPROFEN 400 MG TABLET (FP) PO PRN ×2 (06:16→21:06)
[2019-08-22] MEDS: METHADONE 80 MG, METHADONE 10 MG PO SCH (06:16)
[2019-08-22] MEDS: PHENYTOIN NA EXTENDED 100 MG CAPSULE (FP) PO SCH ×3 (06:17→21:04)
[2019-08-22] MEDS: ARTIFICIAL TEARS (POLYVINYL ALCOHOL) OPTH DROPS OU SCH ×3 (06:17→21:04)
[2019-08-22] MEDS: PRENATAL VITAMINS W/ FOLIC ACID TABLET (FP) PO SCH (10:01)
[2019-08-22] MEDS: TOLNAFTATE 1% CREAM 15 GM TUBE TP SCH ×2 (10:02→21:04)
[2019-08-22] MEDS: ACETAMINOPHEN 325 MG TABLET (FP) PO PRN (14:18)
[2019-08-22] MEDS: THIAMINE HCL 100 MG TABLET (FP) PO SCH (21:04)
[2019-08-22] MEDS: MELATONIN 5 MG TABLETS PO PRN (21:05)
[2019-08-23] MEDS ORDERED: METHADONE HCL 10 MG TABLET ONE (05:35)
[2019-08-23] MEDS ORDERED: METHADONE HCL 40 MG DISPERSABLE TABLET ONE (05:36)
[2019-08-23] MEDS: ARTIFICIAL TEARS (POLYVINYL ALCOHOL) OPTH DROPS OU SCH ×3 (06:07→22:19)
[2019-08-23] MEDS: IBUPROFEN 400 MG TABLET (FP) PO PRN (06:24)
[2019-08-23] MEDS: PHENYTOIN NA EXTENDED 100 MG CAPSULE (FP) PO SCH ×3 (06:24→21:21)
[2019-08-23] MEDS: METHADONE 80 MG, METHADONE 10 MG PO SCH (06:25)
[2019-08-23] MEDS: TOLNAFTATE 1% CREAM 15 GM TUBE TP SCH ×2 (09:58→22:19)
[2019-08-23] MEDS: PRENATAL VITAMINS W/ FOLIC ACID TABLET (FP) PO SCH (09:58)
[2019-08-23] MEDS: ACETAMINOPHEN 325 MG TABLET (FP) PO PRN ×3 (09:59→21:19)
[2019-08-23] MEDS: THIAMINE HCL 100 MG TABLET (FP) PO SCH (21:21)
[2019-08-23] MEDS: MELATONIN 5 MG TABLETS PO PRN (21:21)
[2019-08-24] MEDS ORDERED: METHADONE HCL 10 MG TABLET ONE (04:20)
[2019-08-24] MEDS ORDERED: METHADONE HCL 40 MG DISPERSABLE TABLET ONE (04:20)
[2019-08-24] MEDS: PHENYTOIN NA EXTENDED 100 MG CAPSULE (FP) PO SCH ×3 (06:12→21:04)
[2019-08-24] MEDS: IBUPROFEN 400 MG TABLET (FP) PO PRN ×2 (06:12→21:02)
[2019-08-24] MEDS: METHADONE 80 MG, METHADONE 10 MG PO SCH (06:13)
[2019-08-24] MEDS: ARTIFICIAL TEARS (POLYVINYL ALCOHOL) OPTH DROPS OU SCH ×3 (06:14→21:04)
[2019-08-24] MEDS: ACETAMINOPHEN 325 MG TABLET (FP) PO PRN (10:17)
[2019-08-24] MEDS: PRENATAL VITAMINS W/ FOLIC ACID TABLET (FP) PO SCH (10:17)
[2019-08-24] MEDS: TOLNAFTATE 1% CREAM 15 GM TUBE TP SCH ×2 (10:18→21:03)
[2019-08-24] MEDS: MELATONIN 5 MG TABLETS PO PRN (21:02)
[2019-08-24] MEDS: THIAMINE HCL 100 MG TABLET (FP) PO SCH (21:02)
[2019-08-25] MEDS ORDERED: METHADONE HCL 10 MG TABLET ONE (04:20)
[2019-08-25] MEDS ORDERED: METHADONE HCL 40 MG DISPERSABLE TABLET ONE (04:21)
[2019-08-25] MEDS: IBUPROFEN 400 MG TABLET (FP) PO PRN ×2 (06:12→21:50)
[2019-08-25] MEDS: PHENYTOIN NA EXTENDED 100 MG CAPSULE (FP) PO SCH ×3 (06:13→21:51)
[2019-08-25] MEDS: ARTIFICIAL TEARS (POLYVINYL ALCOHOL) OPTH DROPS OU SCH ×3 (06:13→21:51)
[2019-08-25] MEDS: METHADONE 80 MG, METHADONE 10 MG PO SCH (06:13)
[2019-08-25] MEDS: ACETAMINOPHEN 325 MG TABLET (FP) PO PRN (14:07)
[2019-08-25] MEDS: PRENATAL VITAMINS W/ FOLIC ACID TABLET (FP) PO SCH (14:07)
[2019-08-25] MEDS: TOLNAFTATE 1% CREAM 15 GM TUBE TP SCH ×2 (14:09→21:51)
[2019-08-25] MEDS: MELATONIN 5 MG TABLETS PO PRN (21:50)
[2019-08-25] MEDS: THIAMINE HCL 100 MG TABLET (FP) PO SCH (21:51)
[2019-08-26] MEDS ORDERED: METHADONE HCL 10 MG TABLET ONE (04:43)
[2019-08-26] MEDS ORDERED: METHADONE HCL 40 MG DISPERSABLE TABLET ONE (04:43)
[2019-08-26] MEDS: ARTIFICIAL TEARS (POLYVINYL ALCOHOL) OPTH DROPS OU SCH ×3 (06:20→21:01)
[2019-08-26] MEDS: IBUPROFEN 400 MG TABLET (FP) PO PRN ×2 (06:22→21:00)
[2019-08-26] MEDS: PHENYTOIN NA EXTENDED 100 MG CAPSULE (FP) PO SCH ×3 (06:22→21:00)
[2019-08-26] MEDS: METHADONE 80 MG, METHADONE 10 MG PO SCH (06:22)
[2019-08-26] MEDS: PRENATAL VITAMINS W/ FOLIC ACID TABLET (FP) PO SCH (09:32)
[2019-08-26] MEDS: TOLNAFTATE 1% CREAM 15 GM TUBE TP SCH ×2 (09:33→21:01)
[2019-08-26] MEDS: THIAMINE HCL 100 MG TABLET (FP) PO SCH (21:00)
[2019-08-26] MEDS: MELATONIN 5 MG TABLETS PO PRN (21:00)
[2019-08-27] MEDS ORDERED: METHADONE HCL 10 MG TABLET ONE (05:29)
[2019-08-27] MEDS ORDERED: METHADONE HCL 40 MG DISPERSABLE TABLET ONE (05:30)
[2019-08-27] MEDS ORDERED: METHADONE HCL 10 MG TABLET PO SCH (06:00)
[2019-08-27] MEDS: METHADONE 80 MG, METHADONE 10 MG PO SCH (06:01)
[2019-08-27] MEDS: IBUPROFEN 400 MG TABLET (FP) PO PRN ×2 (06:02→21:08)
[2019-08-27] MEDS: PHENYTOIN NA EXTENDED 100 MG CAPSULE (FP) PO SCH ×3 (06:02→21:08)
[2019-08-27] MEDS: ARTIFICIAL TEARS (POLYVINYL ALCOHOL) OPTH DROPS OU SCH ×3 (06:24→21:07)
[2019-08-27] MEDS: PRENATAL VITAMINS W/ FOLIC ACID TABLET (FP) PO SCH (09:26)
[2019-08-27] MEDS: TOLNAFTATE 1% CREAM 15 GM TUBE TP SCH ×2 (09:27→21:09)
[2019-08-27] MEDS: THIAMINE HCL 100 MG TABLET (FP) PO SCH (21:08)
[2019-08-27] MEDS: MELATONIN 5 MG TABLETS PO PRN (21:09)
[2019-08-28] MEDS ORDERED: METHADONE HCL 40 MG DISPERSABLE TABLET ONE (05:40)
[2019-08-28] MEDS ORDERED: METHADONE HCL 10 MG TABLET ONE (05:40)
[2019-08-28] MEDS: PHENYTOIN NA EXTENDED 100 MG CAPSULE (FP) PO SCH ×3 (06:47→21:08)
[2019-08-28] MEDS: ARTIFICIAL TEARS (POLYVINYL ALCOHOL) OPTH DROPS OU SCH ×3 (06:47→21:47)
[2019-08-28] MEDS: IBUPROFEN 400 MG TABLET (FP) PO PRN ×3 (06:47→21:08)
[2019-08-28] MEDS: METHADONE 80 MG, METHADONE 10 MG PO SCH (06:47)
[2019-08-28] MEDS: PRENATAL VITAMINS W/ FOLIC ACID TABLET (FP) PO SCH (10:08)
[2019-08-28] MEDS: TOLNAFTATE 1% CREAM 15 GM TUBE TP SCH ×2 (10:08→21:49)
[2019-08-28] MEDS: THIAMINE HCL 100 MG TABLET (FP) PO SCH (21:08)
[2019-08-28] MEDS: MELATONIN 5 MG TABLETS PO PRN (21:09)
[2019-08-29] MEDS ORDERED: METHADONE HCL 10 MG TABLET ONE (05:19)
[2019-08-29] MEDS ORDERED: METHADONE HCL 40 MG DISPERSABLE TABLET ONE (05:19)
[2019-08-29] MEDS: ARTIFICIAL TEARS (POLYVINYL ALCOHOL) OPTH DROPS OU SCH ×3 (06:26→21:07)
[2019-08-29] MEDS: METHADONE 80 MG, METHADONE 10 MG PO SCH (06:27)
[2019-08-29] MEDS: IBUPROFEN 400 MG TABLET (FP) PO PRN ×2 (06:27→21:06)
[2019-08-29] MEDS: PHENYTOIN NA EXTENDED 100 MG CAPSULE (FP) PO SCH ×3 (06:27→21:05)
[2019-08-29] MEDS: PRENATAL VITAMINS W/ FOLIC ACID TABLET (FP) PO SCH (10:09)
[2019-08-29] MEDS: TOLNAFTATE 1% CREAM 15 GM TUBE TP SCH ×2 (10:09→21:07)
[2019-08-29] MEDS: ACETAMINOPHEN 325 MG TABLET (FP) PO PRN (14:13)
[2019-08-29] MEDS: THIAMINE HCL 100 MG TABLET (FP) PO SCH (21:05)
[2019-08-29] MEDS: MAG HYDROX/AL HYDROX/SIMETH 30 ML UNIT-DOSE CUP PO PRN (21:07)
[2019-08-29] MEDS: MELATONIN 5 MG TABLETS PO PRN (21:07)
[2019-08-30] MEDS ORDERED: METHADONE HCL 40 MG DISPERSABLE TABLET ONE (05:17)
[2019-08-30] MEDS ORDERED: METHADONE HCL 10 MG TABLET ONE (05:17)
[2019-08-30] MEDS: ARTIFICIAL TEARS (POLYVINYL ALCOHOL) OPTH DROPS OU SCH ×3 (06:11→21:02)
[2019-08-30] MEDS: METHADONE 80 MG, METHADONE 10 MG PO SCH (06:12)
[2019-08-30] MEDS: PHENYTOIN NA EXTENDED 100 MG CAPSULE (FP) PO SCH ×3 (06:12→21:02)
[2019-08-30] MEDS: IBUPROFEN 400 MG TABLET (FP) PO PRN ×3 (06:12→21:03)
[2019-08-30] MEDS: PRENATAL VITAMINS W/ FOLIC ACID TABLET (FP) PO SCH (09:58)
[2019-08-30] MEDS: TOLNAFTATE 1% CREAM 15 GM TUBE TP SCH ×2 (09:58→21:03)
[2019-08-30] MEDS: MAG HYDROX/AL HYDROX/SIMETH 30 ML UNIT-DOSE CUP PO PRN (18:00)
[2019-08-30] MEDS: THIAMINE HCL 100 MG TABLET (FP) PO SCH (21:03)
[2019-08-30] MEDS: MELATONIN 5 MG TABLETS PO PRN (21:04)
[2019-08-31] MEDS ORDERED: METHADONE HCL 10 MG TABLET ONE (04:09)
[2019-08-31] MEDS ORDERED: METHADONE HCL 40 MG DISPERSABLE TABLET ONE (04:09)
[2019-08-31] MEDS: ARTIFICIAL TEARS (POLYVINYL ALCOHOL) OPTH DROPS OU SCH ×3 (06:05→21:01)
[2019-08-31] MEDS: METHADONE 80 MG, METHADONE 10 MG PO SCH (06:06)
[2019-08-31] MEDS: PHENYTOIN NA EXTENDED 100 MG CAPSULE (FP) PO SCH ×3 (06:06→21:01)
[2019-08-31] MEDS: IBUPROFEN 400 MG TABLET (FP) PO PRN ×2 (06:06→21:02)
[2019-08-31] MEDS: PRENATAL VITAMINS W/ FOLIC ACID TABLET (FP) PO SCH (10:04)
[2019-08-31] MEDS: TOLNAFTATE 1% CREAM 15 GM TUBE TP SCH ×2 (10:04→21:02)
[2019-08-31] MEDS: MAG HYDROX/AL HYDROX/SIMETH 30 ML UNIT-DOSE CUP PO PRN ×2 (14:20→21:03)
[2019-08-31] MEDS: MELATONIN 5 MG TABLETS PO PRN (21:01)
[2019-08-31] MEDS: THIAMINE HCL 100 MG TABLET (FP) PO SCH (21:02)
[2019-09-01] MEDS ORDERED: METHADONE HCL 10 MG TABLET ONE (04:30)
[2019-09-01] MEDS ORDERED: METHADONE HCL 40 MG DISPERSABLE TABLET ONE (04:30)
[2019-09-01] MEDS: PHENYTOIN NA EXTENDED 100 MG CAPSULE (FP) PO SCH ×3 (06:05→21:27)
[2019-09-01] MEDS: ARTIFICIAL TEARS (POLYVINYL ALCOHOL) OPTH DROPS OU SCH ×3 (06:05→21:26)
[2019-09-01] MEDS: IBUPROFEN 400 MG TABLET (FP) PO PRN ×2 (06:05→21:27)
[2019-09-01] MEDS: METHADONE 80 MG, METHADONE 10 MG PO SCH (06:06)
[2019-09-01] MEDS: TOLNAFTATE 1% CREAM 15 GM TUBE TP SCH ×2 (09:48→21:26)
[2019-09-01] MEDS: PRENATAL VITAMINS W/ FOLIC ACID TABLET (FP) PO SCH (09:48)
[2019-09-01] MEDS: ACETAMINOPHEN 325 MG TABLET (FP) PO PRN (14:20)
[2019-09-01] MEDS: MAG HYDROX/AL HYDROX/SIMETH 30 ML UNIT-DOSE CUP PO PRN (19:43)
[2019-09-01] MEDS: THIAMINE HCL 100 MG TABLET (FP) PO SCH (21:27)
[2019-09-01] MEDS: MELATONIN 5 MG TABLETS PO PRN (21:28)
[2019-09-02] MEDS ORDERED: METHADONE HCL 40 MG DISPERSABLE TABLET ONE (04:14)
[2019-09-02] MEDS ORDERED: METHADONE HCL 10 MG TABLET ONE (04:14)
[2019-09-02] MEDS: IBUPROFEN 400 MG TABLET (FP) PO PRN ×2 (06:44→21:18)
[2019-09-02] MEDS: METHADONE 80 MG, METHADONE 10 MG PO SCH (06:45)
[2019-09-02] MEDS: PHENYTOIN NA EXTENDED 100 MG CAPSULE (FP) PO SCH ×3 (06:45→21:17)
[2019-09-02] MEDS: ARTIFICIAL TEARS (POLYVINYL ALCOHOL) OPTH DROPS OU SCH ×3 (06:48→21:17)
[2019-09-02] MEDS: PRENATAL VITAMINS W/ FOLIC ACID TABLET (FP) PO SCH (09:30)
[2019-09-02] MEDS: ACETAMINOPHEN 325 MG TABLET (FP) PO PRN (09:30)
[2019-09-02] MEDS: TOLNAFTATE 1% CREAM 15 GM TUBE TP SCH ×2 (10:05→21:18)
[2019-09-02] MEDS: MAG HYDROX/AL HYDROX/SIMETH 30 ML UNIT-DOSE CUP PO PRN ×2 (13:11→21:20)
[2019-09-02] MEDS: THIAMINE HCL 100 MG TABLET (FP) PO SCH (21:17)
[2019-09-02] MEDS: MELATONIN 5 MG TABLETS PO PRN (21:19)
[2019-09-03] MEDS ORDERED: METHADONE HCL 40 MG DISPERSABLE TABLET ONE (04:56)
[2019-09-03] MEDS ORDERED: METHADONE HCL 10 MG TABLET ONE (04:56)
[2019-09-03] MEDS: PHENYTOIN NA EXTENDED 100 MG CAPSULE (FP) PO SCH (06:12)
[2019-09-03] MEDS: METHADONE 80 MG, METHADONE 10 MG PO SCH (06:12)
[2019-09-03] MEDS: IBUPROFEN 400 MG TABLET (FP) PO PRN (06:13)
[2019-09-03] MEDS: ARTIFICIAL TEARS (POLYVINYL ALCOHOL) OPTH DROPS OU SCH (06:14)
[2019-09-03 07:06] VITALS: BP 148/92; PULSE 89; TEMP 98.1
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
[2019-09-03] MEDS: PRENATAL VITAMINS W/ FOLIC ACID TABLET (FP) PO SCH (09:57)
[2019-09-03] MEDS: TOLNAFTATE 1% CREAM 15 GM TUBE TP SCH (09:57)
[2019-09-03] MEDS: MAG HYDROX/AL HYDROX/SIMETH 30 ML UNIT-DOSE CUP PO PRN (09:58)
== END 2019-09-03 10:43 | disposition home or self-care (01) | DRG 772 ==
LOC: YASAS 16:43 → Y5N 19:07
PROVIDERS: ADMIT Allergy & Immunology; ATTEND Allergy & Immunology
PROC: HZ42ZZZ Group Counseling for Substance Abuse Treatment, Cognitive-Behavioral (ICD-10-PCS; principal; 2019-08-06)
DX: F10.20 Alcohol dependence, uncomplicated (principal); F11.20 Opioid dependence, uncomplicated; F13.20 Sedative, hypnotic or anxiolytic dependence, uncomplicated; F14.20 Cocaine dependence, uncomplicated; F12.20 Cannabis dependence, uncomplicated; F32.9 Major depressive disorder, single episode, unspecified; G62.9 Polyneuropathy, unspecified; I10 Essential (primary) hypertension; E78.5 Hyperlipidemia, unspecified; G40.909 Epilepsy, unspecified, not intractable, without status epilepticus; H40.9 Unspecified glaucoma; M19.90 Unspecified osteoarthritis, unspecified site; M79.674 Pain in right toe(s); M79.675 Pain in left toe(s); R06.02 Shortness of breath; K40.90 Unilateral inguinal hernia, without obstruction or gangrene, not specified as recurrent; Z98.890 Other specified postprocedural states; Z99.89 Dependence on other enabling machines and devices
CPT/HCPCS: 80185